=== PATIENT | female | born 1950 | race Caucasian/White ===

== ENCOUNTER 2020-05-03 07:21 | Outpatient (REF) | payer MEDICARE, SELFPAY ==
[2020-05-03 09:21] LABS: Cholesterol 149 mg/dL; HDL Cholesterol 45 mg/dL; LDL Cholesterol Calculated 60 mg/dl; Triglycerides 222 mg/dL
== END 2020-05-03 07:22 | disposition home or self-care (01) ==
LOC: HO.LAB 07:21
PROVIDERS: Visit Provider Internal Medicine
DX: E78.5 Hyperlipidemia, unspecified (principal)
CPT/HCPCS: 80061

== ENCOUNTER 2020-05-25 08:04 | Outpatient (REF) | payer MEDICARE, SELFPAY | END 2020-05-25 08:05 | disposition home or self-care (01) | LOC: HO.LAB 08:04 | PROVIDERS: Visit Provider Internal Medicine | DX: Z20.828 Contact with and (suspected) exposure to other viral communicable diseases (principal) | CPT/HCPCS: C9803; U0003 ==

== ENCOUNTER 2021-03-07 06:55 | Outpatient (REF) | payer MEDICARE, SELFPAY ==
[2021-03-07 08:22] LABS: Alanine Aminotransferase 15 U/L (0-31); Albumin Level 3.8 g/dL (3.5-5.0); Alkaline Phosphatase 83 U/L (39-117); Anion Gap 12 (12-20); Aspartate Amino Transferase 15 U/L (5-31); Bilirubin Total 0.8 mg/dL (0.0-1.0); Blood Urea Nitrogen 15 mg/dL (9-16); Calcium 9.3 mg/dL (8.4-10.2); Carbon Dioxide 25 mmol/L (22-29); Chloride 104 mmol/L (96-108); Cholesterol 153 mg/dL; Estimated Glomerular Filt Rate 45; Glucose Fasting 225 mg/dL (60-99); HDL Cholesterol 40 mg/dL; LDL Cholesterol Calculated 75 mg/dl; Potassium 4.6 mmol/L (3.3-5.1); Sodium 136 mmol/L (135-145); Total Protein 6.5 g/dL (6.5-8.0); Triglycerides 192 mg/dL
== END 2021-03-07 06:56 | disposition home or self-care (01) ==
LOC: HO.LAB 06:55
PROVIDERS: PCP Internal Medicine; Visit Provider Nurse Practitioner Family
DX: E11.9 Type 2 diabetes mellitus without complications (principal)
CPT/HCPCS: 36415; 80053; 80061

== ENCOUNTER 2021-06-17 06:10 | Outpatient (REF) | payer MEDICARE, SELFPAY ==
[2021-06-17 06:58] LABS: Cholesterol 117 mg/dL; HDL Cholesterol 43 mg/dL; LDL Cholesterol Calculated 47 mg/dl; Triglycerides 138 mg/dL
[2021-06-17 07:32] LABS: Estimated Average Glucose 171 mg/dL; Hemoglobin A1c % 7.6 %
== END 2021-06-17 06:11 | disposition home or self-care (01) ==
LOC: HO.LAB 06:10
PROVIDERS: Visit Provider Internal Medicine
DX: E11.9 Type 2 diabetes mellitus without complications (principal)
CPT/HCPCS: 36415; 80061; 83036

== ENCOUNTER 2022-01-26 13:04 | Outpatient (REF) | payer MEDICARE, SELFPAY ==
--- NOTE | ~2022-01-26 | MM_ITS ---
EXAMINATION: MM SCREENING DIGITAL BREAST TOMOSYNTHESIS, BILATERAL CLINICAL INFORMATION: Screening. Asymptomatic. The lifetime risk of breast cancer based on the Tyrer-Cuzick Model is 3.0%. COMPARISON: Mammography: February 13, 2017 and studies dating back to June 28, 2006 TECHNIQUE: Digital breast tomosynthesis is performed in both the craniocaudal and mediolateral oblique views along with computer-aided detection (CAD). Synthesized 2D images are generated from the tomosynthesis. FINDINGS: There are scattered areas of fibroglandular density (ACR BI-RADS breast composition Category b). There are no significant masses, abnormal calcifications, or other abnormalities. MM/MM tomosynthesis screening BI IMPRESSION: There are no significant changes from prior study. ASSESSMENT: BI-RADS 1: Negative RECOMMENDATION: Routine annual mammography screening. This patient's information was entered into a reminder system with a target due date for their next mammogram.
== END 2022-01-26 13:05 | disposition home or self-care (01) ==
LOC: HO.MAMMO 13:04
PROVIDERS: Visit Provider Internal Medicine
DX: Z12.31 Encounter for screening mammogram for malignant neoplasm of breast (principal)
CPT/HCPCS: 77063; 77067

== ENCOUNTER 2022-06-02 08:10 | Outpatient (REF) | payer MEDICARE, SELFPAY ==
[2022-06-02 08:29] LABS: MANUAL DIFF FLAG NO
[2022-06-02 08:39] LABS: Basophils Absolute Auto 0.1 X10*3/uL (0.0-0.2); Basophils Percent Auto 0.9 % (0-2); Eosinophils Absolute Auto 0.1 X10*3/uL (0.0-0.4); Eosinophils Percent Auto 1.4 % (0-4); Hematocrit 41.4 % (37.0-47.0); Hemoglobin 14.5 g/dl (12.0-16.0); Imm Gran Abs Auto 0.02 X10*3/uL (0.00-0.03); Imm Gran Pct Auto 0.3 % (0.0-0.4); Lymphocytes Percent Auto 30.8 % (20-40); Mean Corpuscular Hemoglobin 31.8 pg (27.0-33.0); Mean Corpuscular Volume 90.8 fL (80.0-98.0); Mean Platelet Volume 10.8 fL (9.4-12.3); Monocytes Absolute Auto 0.5 X10*3/uL (0.1-1.2); Monocytes Percent Auto 7.2 % (2-11); Neutrophils Absolute Auto 3.9 x10*3/uL (2.0-8.3); Neutrophils Percent Auto 59.4 % (45-73); Platelet Count 303 X10*3/uL (160-400); Red Blood Count 4.56 X10*6/uL (4.20-5.50); Red Cell Distribution Width 12.3 % (11.0-16.0); White Blood Count 6.6 X10*3/uL (4.8-10.8)
[2022-06-02 08:51] LABS: Estimated Average Glucose 212 mg/dL
[2022-06-02 09:42] LABS: Alanine Aminotransferase 15 U/L (0-31); Albumin Level 3.8 g/dL (3.5-5.0); Alkaline Phosphatase 82 U/L (39-117); Anion Gap 12 (12-20); Aspartate Amino Transferase 13 U/L (5-31); Bilirubin Total 0.7 mg/dL (0.0-1.0); Blood Urea Nitrogen 27 mg/dL (9-16); Calcium 9.1 mg/dL (8.4-10.2); Carbon Dioxide 25 mmol/L (22-29); Chloride 106 mmol/L (96-108); Cholesterol 134 mg/dL; Estimated Glomerular Filt Rate 46; Glucose Fasting 198 mg/dL (60-99); HDL Cholesterol 41 mg/dL; LDL Cholesterol Calculated 65 mg/dl; Potassium 4.2 mmol/L (3.3-5.1); Sodium 139 mmol/L (135-145); Thyroid Stimulating Hormone 2.71 uIU/mL (0.32-4.0); Total Protein 6.3 g/dL (6.5-8.0); Triglycerides 143 mg/dL
== END 2022-06-02 08:11 | disposition home or self-care (01) ==
LOC: HO.LAB 08:10
PROVIDERS: PCP Internal Medicine; Visit Provider Internal Medicine
DX: Z13.0 Encounter for screening for diseases of the blood and blood-forming organs and certain disorders involving the immune mechanism (principal); E11.9 Type 2 diabetes mellitus without complications; I10 Essential (primary) hypertension; E78.5 Hyperlipidemia, unspecified; E03.9 Hypothyroidism, unspecified
CPT/HCPCS: 36415; 80053; 80061; 83036; 84443; 85025

== ENCOUNTER 2022-10-08 13:25 | Emergency (ER) | payer MEDICARE, SELFPAY ==
--- NOTE | ~2022-10-08 | CT_ITS ---
EXAM: CT HEAD WITHOUT CONTRAST CT CERVICAL SPINE INDICATION: Reason for Exam fall, hit head TECHNIQUE: A noncontrast CT scan was performed from the skull base to the vertex. A noncontrast CT scan of the cervical spine was performed from the base of the skull through T1 at 2.5 mm and 0.625 mm collimation. Coronal and sagittal reformats were obtained at the acquisition workstation. This CT examination was performed using dose optimization techniques as appropriate, variously including the following: * Automated exposure control * Adjustment of mA and/or kV according to patient size (this includes techniques or standardized protocols for targeted exams where dose is matched to indication/reason for exam; i.e. extremities or head) * Use of iterative reconstruction technique Dose length product is 983 mGy-cm. COMPARISON: CT head and spine 05/31/2019 FINDINGS: Head: There is no evidence of acute intracranial hemorrhage or territorial infarction. No abnormal mass effect or midline shift is seen. Parks to white matter differentiation is well preserved. No extra-axial fluid collections are identified. The ventricles are normal in size. No abnormal attenuation in the brain parenchyma. No acute calvarial fracture.. Paranasal sinuses and mastoid air cells are well-aerated. Cervical Spine: The atlantooccipital and atlantoaxial articulations demonstrate normal articulation. Slight reversal of the normal cervical lordosis. Otherwise, there is anatomic alignment of the vertebral bodies and posterior elements. No evidence of acute fracture or subluxation. Vertebral body heights are maintained. Cervical spondylosis. More prominent changes include moderate-severe C3-C4, C7-T1 disc degeneration. Moderate disc degeneration at C4-C5, . Multilevel facet degeneration. Bilateral C3-C4 and C4-C5 neural foramen narrowing. No prevertebral soft tissue swelling. The paraspinal soft tissues are unremarkable. There is no cervical lymphadenopathy. The thyroid gland is unremarkable. The visualized lung apices are clear. CT/CT cervical spine wo IV con IMPRESSION: 1. No CT evidence of acute intracranial hemorrhage or edematous territorial infarction. 2. No CT evidence of acute fracture malalignment. 3. Moderate-severe cervical spondylosis.
--- NOTE | ~2022-10-08 | XR_ITS ---
EXAMINATION: Chest, left ankle and left tibia fibula. CLINICAL INDICATION: Trauma. COMPARISON: Chest 05/31/2019 and left ankle 11/19/2014 TECHNIQUE: Chest one view. Left ankle 2 views and left tibia and fibula 3 views. FINDINGS: Left tibia and fibula: There is no visible proximal tibial or ulnar acute fracture, dislocation or bony abnormality. The soft tissues are normal. Left ankle: There is medial and lateral malleolar fractures with ankle dislocation and moderate soft tissue swelling. In addition there is fracture involving distal lateral tibia with extension to the ankle mortise. A small calcaneal heel enthesophyte is seen CHEST: Lungs are well-expanded and clear. Heart size and progress clarities normal. No gross bony abnormality. XR/XR tibia fibula LT 2V IMPRESSION: 1. Unremarkable left tibia and fibula. 2. Medial and lateral malleolar fractures with ankle dislocation and moderate soft tissue swelling. There is a fracture involving distal lateral tibia with extension to the ankle mortise. 3. Unremarkable chest exam. .
--- NOTE | ~2022-10-08 | XR_ITS ---
EXAMINATION: Chest, left ankle and left tibia fibula. CLINICAL INDICATION: Trauma. COMPARISON: Chest 05/31/2019 and left ankle 11/19/2014 TECHNIQUE: Chest one view. Left ankle 2 views and left tibia and fibula 3 views. FINDINGS: Left tibia and fibula: There is no visible proximal tibial or ulnar acute fracture, dislocation or bony abnormality. The soft tissues are normal. Left ankle: There is medial and lateral malleolar fractures with ankle dislocation and moderate soft tissue swelling. In addition there is fracture involving distal lateral tibia with extension to the ankle mortise. A small calcaneal heel enthesophyte is seen CHEST: Lungs are well-expanded and clear. Heart size and progress clarities normal. No gross bony abnormality. XR/XR ankle LT 2V IMPRESSION: 1. Unremarkable left tibia and fibula. 2. Medial and lateral malleolar fractures with ankle dislocation and moderate soft tissue swelling. There is a fracture involving distal lateral tibia with extension to the ankle mortise. 3. Unremarkable chest exam. .
--- NOTE | ~2022-10-08 | XR_ITS ---
EXAMINATION: Chest, left ankle and left tibia fibula. CLINICAL INDICATION: Trauma. COMPARISON: Chest 05/31/2019 and left ankle 11/19/2014 TECHNIQUE: Chest one view. Left ankle 2 views and left tibia and fibula 3 views. FINDINGS: Left tibia and fibula: There is no visible proximal tibial or ulnar acute fracture, dislocation or bony abnormality. The soft tissues are normal. Left ankle: There is medial and lateral malleolar fractures with ankle dislocation and moderate soft tissue swelling. In addition there is fracture involving distal lateral tibia with extension to the ankle mortise. A small calcaneal heel enthesophyte is seen CHEST: Lungs are well-expanded and clear. Heart size and progress clarities normal. No gross bony abnormality. XR/XR chest 1V IMPRESSION: 1. Unremarkable left tibia and fibula. 2. Medial and lateral malleolar fractures with ankle dislocation and moderate soft tissue swelling. There is a fracture involving distal lateral tibia with extension to the ankle mortise. 3. Unremarkable chest exam. .
--- NOTE | ~2022-10-08 | XR_ITS ---
EXAMINATION: XR ANKLE, LEFT CLINICAL INFORMATION: Postreduction ankle fracture COMPARISON: Left ankle performed earlier today 2 views. TECHNIQUE: AP, lateral, and mortise views of the left ankle. FINDINGS: There is a medial and lateral malleolar fracture with ankle dislocation. There is no fracture involving the lateral distal tibia on these views. There is a hard cast supporting left ankle but unchanged to the precast left ankle x-rays. XR/XR ankle LT 2V IMPRESSION: Medial and lateral malleolar fractures with ankle dislocation been stabilized by a hard cast. There is no change in the dislocation and displacement from the precast left ankle x-ray.
[2022-10-08 13:31] VITALS: BP 93/58; PULSE 68; O2SAT 98
--- NOTE | 2022-10-08 13:36 | ECG_ITS ---
Test Reason : fall Blood Pressure : / mmHG Vent. Rate : 058 BPM Atrial Rate : 058 BPM P-R Int : 172 ms QRS Dur : 074 ms QT Int : 436 ms P-R-T Axes : 025 008 -04 degrees QTc Int : 428 ms Sinus bradycardia Nonspecific ST and T wave abnormality Borderline ECG No previous ECGs available Referred By: Amena Santana Electronically Signed By:RORO WANG
--- NOTE | 2022-10-08 13:42 | ED_ITS ---
HPI - Fall General Chief Complaint: Fall Stated Complaint: fall, ankle deformity Time Seen by Provider: 10/08/22 13:27 Source: EMS Mode of arrival: EMS Limitations: altered mental status History of Present Illness HPI Narrative: 72-year-old female with a history of dementia, hypertension, hyperlipidemia presents to the ER after an unwitnessed fall. Per EMS the patient was on the top of 3 stairs and fell down the stairs. Unclear why she fell. This was unwitnessed. Family heard the fall and found her at the mom the stairs. They noticed her left ankle swelling and deformity and called EMS. Patient unable to provider any history of present illness due to her underlying dementia Related Data Previous Rx's Medication Instructions Recorded simvastatin 20 mg tablet 20 mg PO DAILY #90 tabs 02/22/22 citalopram 40 mg tablet 40 mg PO DAILY #90 tabs 04/24/22 donepezil 10 mg tablet 10 mg PO BEDTIME #90 tabs 06/07/22 memantine 10 mg tablet 10 mg PO BID #90 tabs 06/07/22 trazodone 50 mg tablet 25 mg PO BEDTIME PRN sleep #30 tabs 06/07/22 losartan 50 mg tablet 50 mg PO DAILY #90 tabs 09/11/22 Allergies Allergy/AdvReac Type Severity Reaction Status Date / Time No Known Allergies Allergy Verified 10/06/22 08:33 [No Known Allergies*] Review of Systems Review of Systems: Yes Unobtainable due to mental status Neurologic: Denies Abnormal speech present and Reports confusion Psychiatric: Psychiatric: Reports confusion PMFSH Past Medical History Attestation statement: The following information was validated with the patient. Source: old records reviewed and nursing notes reviewed Medical History (Updated 10/08/22 @ 16:44 by Amena Santana NP) Eye exam, routine Hyperlipidemia Hyperlipidemia associated with type 2 diabetes mellitus Hypertension Post-menopausal Screening for breast cancer Screening for colon cancer Screening for diabetes mellitus Surgical History History of cholecystectomy History of colonoscopy History of partial hysterectomy History of tonsillectomy Family History Family History Father Alcohol abuse Mother Liver problem Family/Other Alcoholism Social History Social History Housing: House Alcohol intake: never Patient Tobacco Use Status: Never used Tobacco e-Cigarette/Vaping Use: Never Used Second Hand Smoke Exposure: No Advance Directives: Yes Advance Directives Information Provided: No Advance Directives on File: No service: No Current occupational status: retired Cognitive needs: Yes Hearing needs: No Vision needs: Yes Physical Exam Vital Signs: Vital Signs: Last Vital Signs Temp 97.6 F 10/08/22 15:58 Pulse 58 10/08/22 15:58 Resp 16 10/08/22 15:58 BP 120/83 10/08/22 15:58 Pulse Ox 98 10/08/22 15:58 O2 Del Method Room Air 10/08/22 15:58 BMI result Body Mass Index 33.0 Const: General: cooperative, healthy appearing, comfortable, no acute distress and confusion Orientation/consciousness: confusion Limitations: altered mental status HEENT: Head: Yes normal to inspection, No Marie's sign and No raccoon eyes Ears: hearing grossly normal bilaterally General nose exam: Normal external nose present Face and sinus: Yes normal facial exam Mouth: Normal oral and palatal mucosa present Throat: Yes posterior oropharynx normal Eyes: General: appearance normal, both eyes and all related structures Pupils: Equal, round and reactive pupils present Neck: Neck: Yes normal visual inspection Chest: Chest palpation & inspection: normal inspection of the chest Resp: Effort & Inspection: normal respiratory effort Auscultation: clear to auscultation bilaterally Cardio: Rate: regular rate Rhythm: regular rhythm Peripheral pulses: Peripheral pulses 2+ throughout GI: Inspection: Yes normal to inspection Palpation (GI): Soft to palpation and nontender Auscultation: normal bowel sounds Back/Spine/Pelvis: Thoracic/Lumbar Spine: thoracic and lumbar spine normal to inspection Skin: General skin exam: no rashes or lesions noted Neuro: General: no focal motor deficits, normal sensation to monofilament and confusion Cranial nerves: Yes Equal, round and reactive pupils present Cognition (Neuro): normal cognition Speech: No Abnormal speech present Gait exam (Neuro): Normal gait present Motor exam (neuro): 5/5 motor strength present throughout Extrem: Other: Patient has a deformity to the left ankle. She has tenderness and swelling on exam. She does have palpable DP and PT pulses. Sensation is normal General: Yes normal to inspection Course Course Course Narrative: Patient had hematoma block and an attempted ankle reduction at this bedside but without anatomic alignment (dr Ugarte was my attending physician during this procedure). Patient was splinted post-procedure. Reevaluation(s) Reevaluation #1: 1600-family would like patient transferred to another facility for orthopedic consultation. I did call [facility] but they are closed to transfers. Family would like me to try [facility]. Reevaluation #2: 1615-Called and spoke to [facility] transfer line. They are closed to transfers. Family would like me to try another facility. Will call [facility] transfer line. They are not comfortable taking the patient home however are not interested in short term rehab. Reevaluation #3: 1700-Spoke to [facility] transfer line. They have accepted the transfer to their ER with accepting physician Dr Rose. Family is very happy at this as they desired transfer to facility for orthopedic consultation. Will arrange transportation. Medications Administered Discontinued Medications Generic Name Dose Route Start Last Admin Trade Name Enma PRN Reason Stop Dose Admin Lidocaine HCl 30 ml 10/08/22 16:30 10/08/22 16:39 Lidocaine Hcl 1 % Mpf 30 Ml Vial SUBCUT 10/08/22 16:31 30 ml ONCE ONE Administration Protocol Morphine Sulfate 2 mg 10/08/22 13:37 10/08/22 15:12 Morphine Sulfate 2 Mg/Ml Cartridge IVPUSH 10/08/22 13:38 2 mg ONCE ONE Administration Protocol Ondansetron HCl 4 mg 10/08/22 13:37 10/08/22 15:11 Ondansetron Hcl 4 Mg/2 Ml Vial IVPUSH 10/08/22 13:38 4 mg ONCE ONE Administration Procedures Orthopedic Joint Reduction Joint #1: Side: left Joint Reduction Location: ankle Analgesia: hematoma block Local Anesthesia: lidocaine 1% Amount of anesthesic used (mL): 10 Technique used: direct manipulation Post-reduction neuro exam: intact Post-reduction vascular: intact Post Reduction X-Ray Obtained: Yes Post Reduction X-Ray Results: not reduced Splint Applied: Yes Patient Tolerated Procedure: well Orthopedic Splinting/Casting Injury #1: Side: left Lower Extremity Injury Location: ankle Lower Extremity Immobilizer: posterior splint and stirrup splint Medical Decision Making Medical Decision Making MDM Narrative: 72-year-old female here with left ankle pain and deformity after a fall down 3 steps from unclear clause. This was unwitnessed As patient is confused and unable to provide history of present illness we will check labs, EKG, CT head and cervical spine. Patient with obvious ankle deformity will check x-rays checked with that patient is on ASA 81mg daily Differential Diagnosis Differential Diagnoses: The differential diagnosis associated with the presentation includes Mechanical fall versus syncope Fracture, dislocation, contusion Admission/Observation Consideration of admission/observation: Escalation of care including admission/observation considered Trimallealar fracture with dislocation needing ortho consult, reduction Consult Healthcare Provider Management of the patient was discussed with: Global Sales Director X-ray of the left ankle shows a trimalleolar fracture with a dislocation. I discussed the case with our orthopedic bus transportation manager Sarah CASPER. unfortunately we only have a hand surgeon bus transportation manager for orthopedics this week. We will not have any additional orthopedic coverage until next week. The recommendation from Orthopedics is to reduce the joint and have the patient follow up this week in the office with them for planned outpatient surgery. -this was relayed to the family and they are quite upset that we do not have a orthopedic surgeon available here to perform surgery this week. They also feel that they cannot take this patient home as she will have to be non-weight bearing. We did discuss short term rehab as an option but family is not interested in this. They are requesting we transfer the patient to another facility for orthopedic consultation. Lab Data MDM Lab Attestation statement: I reviewed the patient's lab results. 10/08/22 13:54 10/08/22 13:54 Labs: Lab Results 10/08/22 10/08/22 10/08/22 Range/Units 13:54 13:54 13:54 WBC 6.8 (4.8-10.8) X10*3/uL RBC 4.50 (4.20-5.50) X10*6/uL Hgb 14.1 (12.0-16.0) g/dl Hct 40.7 (37.0-47.0) % MCV 90.4 (80.0-98.0) fL MCH 31.3 (27.0-33.0) pg MCHC 34.6 (31.0-35.0) g/dl RDW 12.1 (11.0-16.0) % Plt Count 266 (160-400) X10*3/uL MPV 10.7 (9.4-12.3) fL Immature Gran % (Auto) 0.1 (0.0-0.4) % Neut % (Auto) 65.5 (45-73) % Lymph % (Auto) 24.7 (20-40) % [place] % (Auto) 7.2 (2-11) % Eos % (Auto) 1.5 (0-4) % Baso % (Auto) 1.0 (0-2) % Lymph # (Auto) 1.7 (1.2-4.9) X10*3/uL [place] # (Auto) 0.5 (0.1-1.2) X10*3/uL Eos # (Auto) 0.1 (0.0-0.4) X10*3/uL Baso # (Auto) 0.1 (0.0-0.2) X10*3/uL Abs Immat Gran (auto) 0.01 (0.00-0.03) X10*3/uL Absolute Neuts (auto) 4.5 (2.0-8.3) x10*3/uL Absolute Nucleated RBC 0.000 (0.0-0.012) X10*3/uL Nucleated RBC % (auto) 0.0 (0.0-0.2) /100WBC Sodium 137 (135-145) mmol/L Potassium 4.8 (3.3-5.1) mmol/L Chloride 108 (96-108) mmol/L Carbon Dioxide 20 L (22-29) mmol/L Anion Gap 14 (12-20) BUN 27 H (9-16) mg/dL Creatinine 1.06 (0.5-1.4) mg/dL Estim Creat Clear Calc 55.8 Estimated GFR 51 Random Glucose 204 H (60-115) mg/dL Calcium 8.6 (8.4-10.2) mg/dL Total Bilirubin 1.1 H (0.0-1.0) mg/dL Direct Bilirubin 0.3 (0.0-0.5) mg/dL AST 17 (5-31) U/L ALT 15 (0-31) U/L Alkaline Phosphatase 78 (39-117) U/L Troponin I High Sens < 2.7 (<3.5-17.0) ng/L Total Protein 6.1 L (6.5-8.0) g/dL Albumin 3.5 (3.5-5.0) g/dL Independent Interpretation I performed an independent interpretation of an: EKG, Plain X-Ray and CT Scan Interpretation: I independently reviewed the x-ray of the left ankle, ct head/cervical spine Anomaly reviewed the EKG which shows sinus bradycardia with rate of 58, normal CO, normal QRS, normal QT Radiology Impression Discussion of test interpretation with radiology: I have reviewed the radiologist's reading. Radiologist Impression: [address] [address] [address] Scan Report Signed Patient: Melody Shirley MR#: [id number] : 1950 Acct:[id number] Age/Sex: 72 / F ADM Date: 10/08/22 Loc: .ED Attending Dr: Ordering Physician: Amena Sandy NP Date of Service: 10/08/22 Procedure(s): CT cervical spine wo IV con Accession Number(s): [id number] cc: Amena Sandy NP~ EXAM: CT HEAD WITHOUT CONTRAST CT CERVICAL SPINE INDICATION: Reason for Exam fall, hit head TECHNIQUE: A noncontrast CT scan was performed from the skull base to the vertex. A noncontrast CT scan of the cervical spine was performed from the base of the skull through T1 at 2.5 mm and 0.625 mm collimation. Coronal and sagittal reformats were obtained at the acquisition workstation. This CT examination was performed using dose optimization techniques as appropriate, variously including the following: *? Automated exposure control *? Adjustment of mA and/or kV according to patient size (this includes techniques or standardized protocols for targeted exams where dose is matched to indication/reason for exam; i.e. extremities or head) *? Use of iterative reconstruction technique Dose length product is 983 mGy-cm. COMPARISON: CT head and spine 05/31/2019 FINDINGS: Head: There is no evidence of acute intracranial hemorrhage or territorial infarction. No abnormal mass effect or midline shift is seen. Parks to white matter differentiation is well preserved. No extra-axial fluid collections are identified. The ventricles are normal in size. No abnormal attenuation in the brain parenchyma. No acute calvarial fracture.. Paranasal sinuses and mastoid air cells are well-aerated. ? ?Cervical Spine: The atlantooccipital and atlantoaxial articulations demonstrate normal articulation. Slight reversal of the normal cervical lordosis. Otherwise, there is anatomic alignment of the vertebral bodies and posterior elements. No evidence of acute fracture or subluxation. Vertebral body heights are maintained. Cervical spondylosis. More prominent changes include moderate-severe C3-C4, C7-T1 disc degeneration. Moderate disc degeneration at C4-C5, . Multilevel facet degeneration. Bilateral C3-C4 and C4-C5 neural foramen narrowing. No prevertebral soft tissue swelling. The paraspinal soft tissues are unremarkable. There is no cervical lymphadenopathy. The thyroid gland is unremarkable. The visualized lung apices are clear. CT/CT cervical spine wo IV con IMPRESSION: 1. No CT evidence of acute intracranial hemorrhage or edematous territorial infarction. ? 2. No CT evidence of acute fracture malalignment. ? 3. Moderate-severe cervical spondylosis. ? ?[place] [address] XRay Report Signed Patient: Melody Shirley MR#: [id number] : 1950 Acct:[id number] Age/Sex: 72 / F ADM Date: 10/08/22 Loc: .ED Attending Dr: Ordering Physician: Amena Sandy NP Date of Service: 10/08/22 Procedure(s): XR chest 1V Accession Number(s): [id number] cc: Amena Sandy NP~ EXAMINATION: Chest, left ankle and left tibia fibula. CLINICAL INDICATION: Trauma. COMPARISON: Chest 05/31/2019 and left ankle 11/19/2014 TECHNIQUE: Chest one view. Left ankle 2 views and left tibia and fibula 3 views. FINDINGS: Left tibia and fibula: There is no visible proximal tibial or ulnar acute fracture, dislocation or bony abnormality. The soft tissues are normal. Left ankle: There is medial and lateral malleolar fractures with ankle dislocation and moderate soft tissue swelling. In addition there is fracture involving distal lateral tibia with extension to the ankle mortise. A small calcaneal heel enthesophyte is seen CHEST: Lungs are well-expanded and clear. Heart size and progress clarities normal. No gross bony abnormality. XR/XR chest 1V IMPRESSION: 1.? Unremarkable left tibia and fibula. 2.? Medial and lateral malleolar fractures with ankle dislocation and moderate soft tissue swelling. There is a fracture involving distal lateral tibia with extension to the ankle mortise. 3.? Unremarkable chest exam. . ? Independent Historian Clinical information obtained from an independent historian. History obtained from or confirmed by: EMS Critical Care Time Critical Care Time Critical Care Time: Yes Total Critical Care Time: 60 Attestation: Trimalleolar ankle fracture with ankle dislocation requiring attempts at ankle r eduction, discussion with transfer lines at [facility]. Transfer to tertiary care center for orthopedic consultation Discharge Plan Discharge Clinical Impression: Closed trimalleolar fracture, Ankle dislocation Patient Disposition: Xfer Acute Care Hospital Transfer Details: [facility] Prescriptions: No Action simvastatin 20 mg tablet 20 mg PO DAILY Qty: 90 8RF citalopram 40 mg tablet 40 mg PO DAILY Qty: 90 8RF memantine 10 mg tablet 10 mg PO BID Qty: 90 3RF donepezil 10 mg tablet 10 mg PO BEDTIME Qty: 90 8RF losartan 50 mg tablet 50 mg PO DAILY Qty: 90 8RF trazodone 50 mg tablet 25 mg PO BEDTIME PRN (Reason: sleep) Qty: 30 4RF
[2022-10-08 13:58] LABS: MANUAL DIFF FLAG NO
[2022-10-08 14:00] LABS: Basophils Absolute Auto 0.1 X10*3/uL (0.0-0.2); Eosinophils Absolute Auto 0.1 X10*3/uL (0.0-0.4); Eosinophils Percent Auto 1.5 % (0-4); Hematocrit 40.7 % (37.0-47.0); Hemoglobin 14.1 g/dl (12.0-16.0); Imm Gran Abs Auto 0.01 X10*3/uL (0.00-0.03); Imm Gran Pct Auto 0.1 % (0.0-0.4); Lymphocytes Absolute Auto 1.7 X10*3/uL (1.2-4.9); Lymphocytes Percent Auto 24.7 % (20-40); Mean Corpuscular HGB Conc 34.6 g/dl (31.0-35.0); Mean Corpuscular Hemoglobin 31.3 pg (27.0-33.0); Mean Corpuscular Volume 90.4 fL (80.0-98.0); Mean Platelet Volume 10.7 fL (9.4-12.3); Monocytes Absolute Auto 0.5 X10*3/uL (0.1-1.2); Monocytes Percent Auto 7.2 % (2-11); Neutrophils Absolute Auto 4.5 x10*3/uL (2.0-8.3); Neutrophils Percent Auto 65.5 % (45-73); Platelet Count 266 X10*3/uL (160-400); Red Cell Distribution Width 12.1 % (11.0-16.0); White Blood Count 6.8 X10*3/uL (4.8-10.8)
[2022-10-08 14:01] VITALS: BMI 33.0
[2022-10-08 14:02] VITALS: BP 113/90; PULSE 61; RESP 16; TEMP 36.5; O2SAT 96
[2022-10-08 14:21] LABS: Alanine Aminotransferase 15 U/L (0-31); Albumin Level 3.5 g/dL (3.5-5.0); Alkaline Phosphatase 78 U/L (39-117); Anion Gap 14 (12-20); Aspartate Amino Transferase 17 U/L (5-31); Bilirubin Direct 0.3 mg/dL (0.0-0.5); Bilirubin Total 1.1 mg/dL (0.0-1.0); Blood Urea Nitrogen 27 mg/dL (9-16); Calcium 8.6 mg/dL (8.4-10.2); Carbon Dioxide 20 mmol/L (22-29); Chloride 108 mmol/L (96-108); Creatinine Clr Calc Pharmacy 55.8; Estimated Glomerular Filt Rate 51; Glucose Random 204 mg/dL (60-115); Potassium 4.8 mmol/L (3.3-5.1); Sodium 137 mmol/L (135-145); Total Protein 6.1 g/dL (6.5-8.0)
[2022-10-08 14:25] LABS: Troponin-I High Sensitivity < 2.7 ng/L (<3.5-17.0)
[2022-10-08] MEDS: ondansetron HCL 4 MG/2 ML VIAL IVPUSH (15:11)
[2022-10-08] MEDS: Morphine Sulfate 2 MG/ML CARTRIDGE IVPUSH (15:12)
[2022-10-08 15:58] VITALS: BP 120/83; PULSE 58; RESP 16; TEMP 36.4; O2SAT 98
[2022-10-08] MEDS: Lidocaine HCl 1 % MPF 30 ML VIAL SUBCUT (16:39)
[2022-10-08 17:07] LABS: COVID-19 Test Negative (Negative); IDNOW Serial# 08D9AD1C
[2022-10-08 17:43] VITALS: BP 129/81; PULSE 80; RESP 16; TEMP 36.6; O2SAT 98
--- NOTE | 2022-10-08 18:12 | PC.NURSE ---
pt linens changed reposition and helped to bed montero, waiting on transport to [facility]
--- NOTE | 2022-10-08 18:46 | PC.NURSE ---
has pulled out ivs currently no access.
[2022-10-08] MEDS: Morphine Sulfate 4 MG/ML CARTRIDGE IVPUSH (19:19)
--- NOTE | 2022-10-08 19:54 | PC.NURSE ---
Nurse report given to Oni MAURICIO at [facility]. Pt being transferred via EMS. Fammily at bedside and aware of plan of care.
== END 2022-10-08 19:56 | disposition short-term general hospital (02) ==
PROVIDERS: Nurse Practitioner Family; Emergency Provider Emergency Medicine; PCP Internal Medicine
DX: S82.852A Displaced trimalleolar fracture of left lower leg, initial encounter for closed fracture (principal); M54.2 Cervicalgia; R51.9 Headache, unspecified; R07.89 Other chest pain; M79.605 Pain in left leg; W10.9XXA Fall (on) (from) unspecified stairs and steps, initial encounter; Y93.9 Activity, unspecified; Y92.9 Unspecified place or not applicable; Y99.9 Unspecified external cause status; Z20.822 Contact with and (suspected) exposure to COVID-19; Z20.828 Contact with and (suspected) exposure to other viral communicable diseases; Z79.899 Other long term (current) drug therapy
CPT/HCPCS: 36415; 70450; 71045; 72125; 73590; 73600; 80048; 80076; 84484; 85025; 87635; 93005; 96374; 96375; 96376; 99285; J2270; J2405

== ENCOUNTER 2022-11-14 11:28 | Outpatient (REF) | payer MEDICARE, SELFPAY ==
[2022-11-14 11:43] LABS: MANUAL DIFF FLAG NO
[2022-11-14 12:21] LABS: Basophils Absolute Auto 0.1 X10*3/uL (0.0-0.2); Basophils Percent Auto 0.7 % (0-2); Eosinophils Absolute Auto 0.1 X10*3/uL (0.0-0.4); Eosinophils Percent Auto 1.4 % (0-4); Estimated Average Glucose 169 mg/dL; Hematocrit 40.1 % (37.0-47.0); Hemoglobin 13.6 g/dl (12.0-16.0); Hemoglobin A1c % 7.5 %; Imm Gran Abs Auto 0.03 X10*3/uL (0.00-0.03); Imm Gran Pct Auto 0.4 % (0.0-0.4); Lymphocytes Absolute Auto 1.8 X10*3/uL (1.2-4.9); Lymphocytes Percent Auto 25.2 % (20-40); Mean Corpuscular HGB Conc 33.9 g/dl (31.0-35.0); Mean Corpuscular Hemoglobin 31.4 pg (27.0-33.0); Mean Corpuscular Volume 92.6 fL (80.0-98.0); Mean Platelet Volume 11.1 fL (9.4-12.3); Monocytes Absolute Auto 0.6 X10*3/uL (0.1-1.2); Monocytes Percent Auto 8.1 % (2-11); Neutrophils Absolute Auto 4.5 x10*3/uL (2.0-8.3); Neutrophils Percent Auto 64.2 % (45-73); Platelet Count 341 X10*3/uL (160-400); Red Blood Count 4.33 X10*6/uL (4.20-5.50); Red Cell Distribution Width 12.6 % (11.0-16.0); White Blood Count 6.9 X10*3/uL (4.8-10.8)
[2022-11-14 13:01] LABS: Anion Gap 16 (12-20); Blood Urea Nitrogen 21 mg/dL (9-16); Calcium 9.8 mg/dL (8.4-10.2); Carbon Dioxide 22 mmol/L (22-29); Chloride 105 mmol/L (96-108); Cholesterol 127 mg/dL; Estimated Glomerular Filt Rate > 60; Glucose Fasting 104 mg/dL (60-99); Glucose Random 104 mg/dL (60-115); HDL Cholesterol 41 mg/dL; LDL Cholesterol Calculated 49 mg/dl; Potassium 4.6 mmol/L (3.3-5.1); Sodium 138 mmol/L (135-145); Triglycerides 189 mg/dL
== END 2022-11-14 11:29 | disposition home or self-care (01) ==
LOC: HO.LAB 11:28
PROVIDERS: PCP Internal Medicine; Visit Provider Internal Medicine
DX: R73.9 Hyperglycemia, unspecified (principal); D64.9 Anemia, unspecified; E78.5 Hyperlipidemia, unspecified
CPT/HCPCS: 36415; 80048; 80061; 82947; 83036; 85025

== ENCOUNTER 2023-01-31 06:40 | Outpatient (REF) | payer MEDICARE, SELFPAY ==
[2023-01-31 07:24] LABS: Estimated Average Glucose 114 mg/dL; Hemoglobin A1c % 5.6 %
[2023-01-31 07:36] LABS: Cholesterol 110 mg/dL; Glucose Fasting 101 mg/dL (60-99); HDL Cholesterol 38 mg/dL; LDL Cholesterol Calculated 50 mg/dl; Triglycerides 113 mg/dL
== END 2023-01-31 06:41 | disposition home or self-care (01) ==
LOC: HO.LAB 06:40
PROVIDERS: PCP Internal Medicine; Visit Provider Internal Medicine
DX: E78.5 Hyperlipidemia, unspecified (principal); E11.65 Type 2 diabetes mellitus with hyperglycemia
CPT/HCPCS: 36415; 80061; 82947; 83036

== ENCOUNTER 2023-02-05 08:35 | Outpatient (AMB) | payer MEDICARE, SELFPAY ==
--- NOTE | 2023-02-05 08:39 | A.OFFPC_ITS ---
Vital Signs 02/05/23 08:41 Height 5 ft 6 in Weight 183 lb 2 oz BMI 29.6 BP 120/70 Blood Pressure Location Lt brachial Position Sitting Pulse 65 Pulse Source Pulse Oximeter Pulse Oximetry (%) 94 Oxygen Delivery Method Room Air Intake Visit Reasons: 4mth f/u Intake Note: Patient is here to follow up on DM, Hyperglycemia, Hyperlipidemia, HTN. 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 System Technician Required: No Fire Fighter: Present Accompanied by: Spouse Allergies No Known Allergies [No Known Allergies*] Allergy (Verified 02/05/23 08:41) Medication List - Last Reconciled 02/05/23 by Franky Martino MD acetaminophen 975 mg PO Q8H blood sugar diagnostic ([employer] Verio test strips) As directed cholecalciferol (vitamin D3) 50 mcg PO DAILY citalopram 40 mg PO DAILY donepezil 5 mg PO DAILY losartan 50 mg PO DAILY memantine 10 mg PO BID metformin 1,000 mg (2 x 500 mg) PO BID uttqgvim-xnqs-YN-calcium-mins 9 mg iron-400 mcg (Therapeutic-M) 1 tab PO DAILY sennosides-docusate sodium 8.6-50 mg (Senexon-S) 2 tabs PO BEDTIME simvastatin 20 mg PO DAILY sitagliptin phosphate (Januvia) 25 mg PO DAILY tramadol 50 mg PO Q6H PRN trazodone 25 mg (1/2 x 50 mg) PO BEDTIME PRN Tobacco use date assessed: 02/05/23 Fall risk assessment: 1 Fall in past year Last assessed Fall Risk: 02/05/23 Dental Screening Dental Screen Date: 02/05/23 Did you have a dental visit in the last 12 months?: No Did you have a dental problem in the last 6 months where you did not have access to dental care?: No Was dental information given to patient?: Patient has dentist HPI 4mth f/u HPI Details HTN DM and hyperlipidemia; stable [facility] Medical History (Updated 02/05/23 @ 09:04 by Franky Martino MD) Eye exam, routine Hyperlipidemia Hyperlipidemia associated with type 2 diabetes mellitus Hypertension Post-menopausal Screening for breast cancer Screening for colon cancer Screening for diabetes mellitus Surgical History (Updated 02/05/23 @ 08:47 by MICHELLE Renee) History of ankle surgery History of cholecystectomy History of colonoscopy History of partial hysterectomy History of tonsillectomy Family History Father Alcohol abuse Mother Liver problem Family/Other Alcoholism Social History Housing: House Alcohol intake: never Patient Tobacco Use Status: Never used Tobacco e-Cigarette/Vaping Use: Never Used Second Hand Smoke Exposure: No service: No Current occupational status: retired Cognitive needs: Yes Hearing needs: No Vision needs: Yes Questionnaire PHQ-9 Over the last 2 weeks, how often have you been bothered by any of the following problems? Depression Screening Interpretation: Positive Source: Developed by Drs. Tyree Weems, Dennise Newton, Remigio Lau and colleagues, with an educational sri from [employer]. Thrive Questionnaire Date Thrive assessed: 10/06/22 Currently or been in a relationship where the following occur: no concerns reported RAJWINDER-7 AMB Questionnaire RAJWINDER-7 Date RAJWINDER - 7 assessed: 10/06/22 Source: Developed by Drs. Tyree Weems, Dennise Newton, Remigio Lau and colleagues, with an educational sri from [employer]. Review of Systems Const Denies chills, Denies headache(s) and Denies weight loss ENT Denies headache(s) Card Denies chest pain, Denies syncope, Denies irregular heart rhythm and Denies dyspnea Resp Denies chest congestion, Denies cough and Denies dyspnea GI Denies abdominal pain, Denies change in stool character, Denies nausea and Denies vomiting Musc Denies deformity and Denies joint swelling Neuro Denies syncope and Denies headache(s) Physical exam (Primary Care) Vital Signs: Last Vital Signs Pulse 65 02/05/23 08:41 BP 120/70 02/05/23 08:41 Pulse Ox 94 02/05/23 08:41 Oxygen Delivery Method Room Air 02/05/23 08:41 BMI result Body Mass Index 29.6 Tobacco/Smoking Status: Tobacco use Status Tobacco use date assessed 02/05/23 02/05/23 08:48 Patient Tobacco Use Status Never used Tobacco 02/05/23 08:48 e-Cigarette/Vaping Use Never Used 02/05/23 08:48 Depression Screening Interpretation: Positive Thrive Assessment: Date of Thrive Assessment Date Thrive assessed 10/06/22 02/05/23 08:48 Currently or been in a relationship where the following occur: no concerns reported Const General: cooperative, healthy appearing and comfortable Resp Effort & Inspection: normal respiratory effort Auscultation: clear to auscultation bilaterally Percussion: percussion normal Cardio Jugular venous distension: no JVD Rate: regular rate Rhythm: regular rhythm GI Inspection: Yes normal to inspection Assessment and Plan Assessment & Plan (1) Hyperlipidemia associated with type 2 diabetes mellitus: Code(s): E11.69 - Type 2 diabetes mellitus with other specified complication; E78.5 - Hyperlipidemia, unspecified Plan: stable; same rx (2) Hypertension: Code(s): I10 - Essential (primary) hypertension Qualifiers: Hypertension type: unspecified Qualified Code(s): I10 - Essential (primary) hypertension Plan: stable; same rx (3) Diabetes mellitus with coincident hypertension: Code(s): E11.9 - Type 2 diabetes mellitus without complications; I10 - Essential (primary) hypertension Plan: stable; same rx Orders: Orders Glucose Fasting Today R73.9 - Hyperglycemia, unspecified Hemoglobin A1c Today R73.9 - Hyperglycemia, unspecified Lipid Panel Today E78.5 - Hyperlipidemia, unspecified Coding Level of Care Code Est Pt Level 4 (08321) Diagnoses Hyperlipidemia associated with type 2 diabetes mellitus E11.69; E78.5 Hypertension I10 Hypertension type: unspecified Diabetes mellitus with coincident hypertension E11.9; I10
[2023-02-05 08:41] VITALS: BP 120/70; PULSE 65; O2SAT 94; BMI 29.6
== END 2023-02-05 09:01 | disposition home or self-care (01) ==
PROVIDERS: PCP Internal Medicine; Visit Provider Internal Medicine
DX: E11.69 Type 2 diabetes mellitus with other specified complication (principal); E78.5 Hyperlipidemia, unspecified; I10 Essential (primary) hypertension; E11.9 Type 2 diabetes mellitus without complications
CPT/HCPCS: 99214

== ENCOUNTER 2023-02-09 15:19 | Outpatient (REF) | payer MEDICARE, SELFPAY ==
--- NOTE | ~2023-02-09 | MM_ITS ---
EXAMINATION: MM SCREENING DIGITAL BREAST TOMOSYNTHESIS, BILATERAL CLINICAL INFORMATION: Screening. Asymptomatic. COMPARISON: Mammography: This study is compared with prior exams dating back to 2017. TECHNIQUE: Digital breast tomosynthesis is performed in both the craniocaudal and mediolateral oblique views along with computer-aided detection (CAD). Synthesized 2D images are generated from the tomosynthesis. FINDINGS: There are scattered areas of fibroglandular density (ACR BI-RADS breast composition Category b). There are no significant masses, abnormal calcifications, or other abnormalities. There is a tissue marker in the medial aspect of the right breast from prior benign percutaneous biopsy. There is some motion blurring of the MLO view of the left breast due to the patient's ability to cooperate with the exam secondary to Alzheimer's disease. MM/MM tomosynthesis screening BI IMPRESSION: No mammographic evidence of malignancy. ASSESSMENT: BI-RADS BI-RADS 2 - Benign Findings RECOMMENDATION: Routine annual mammography screening. 1 year F/U This examination should not preclude the clinical evaluation of a suspicious palpable abnormality. This patient's information was entered into a reminder system with a target due date for their next mammogram.
== END 2023-02-09 15:20 | disposition home or self-care (01) ==
LOC: HO.MAMMO 15:19
PROVIDERS: PCP Internal Medicine; Visit Provider Internal Medicine
DX: Z12.31 Encounter for screening mammogram for malignant neoplasm of breast (principal)
CPT/HCPCS: 77063; 77067

== ENCOUNTER → 2023-02-09 15:45 | Outpatient (BNV) | payer MEDICARE, SELFPAY | PROVIDERS: PCP Internal Medicine; Visit Provider Radiology Diagnostic Radiology | DX: Z12.31 Encounter for screening mammogram for malignant neoplasm of breast (principal) | CPT/HCPCS: 77063; 77067 ==

== ENCOUNTER 2023-06-04 06:52 | Outpatient (REF) | payer MEDICARE, SELFPAY ==
[2023-06-04 07:56] LABS: Estimated Average Glucose 117 mg/dL; Hemoglobin A1c % 5.7 % (<6.0)
[2023-06-04 08:11] LABS: Cholesterol 115 mg/dL (<200); Glucose Fasting 109 mg/dL (60-99); HDL Cholesterol 42 mg/dL (>40); LDL Cholesterol Calculated 52 mg/dL (<100); Triglycerides 109 mg/dL (<150)
== END 2023-06-04 06:53 | disposition home or self-care (01) ==
LOC: HO.LAB 06:52
PROVIDERS: PCP Internal Medicine; Visit Provider Internal Medicine
DX: E78.5 Hyperlipidemia, unspecified (principal); R73.9 Hyperglycemia, unspecified
CPT/HCPCS: 36415; 80061; 82947; 83036

== ENCOUNTER 2023-06-08 08:09 | Inpatient (IN) | payer MEDICARE, SELFPAY ==
[2023-06-08] VITALS (9 sets, daily range): BP systolic 94–132; BP diastolic 51–66; PULSE 75–111; RESP 16–26; TEMP 36.7–39.4; O2SAT 92–98; BMI 30.3; BMI 29.5
--- NOTE | ~2023-06-08 | XR_ITS ---
EXAMINATION: XR CHEST CLINICAL INFORMATION: Cough and fever. Evaluate for pneumonia. COMPARISON: 10/08/2022 TECHNIQUE: Frontal view of the chest was obtained. FINDINGS: Lungs are mildly hypoinflated. There appears to be minimal linear opacity of atelectasis in the left lateral base. No evidence of airspace disease or pleural effusion. Cardiomediastinal silhouette has normal size and contour. No acute osseous abnormality. XR/XR chest 1V IMPRESSION: No evidence of pneumonia.
--- NOTE | 2023-06-08 08:39 | ECG_ITS ---
Test Reason : WEAKNESS Blood Pressure : / mmHG Vent. Rate : 098 BPM Atrial Rate : 098 BPM P-R Int : 158 ms QRS Dur : 070 ms QT Int : 368 ms P-R-T Axes : 040 026 019 degrees QTc Int : 469 ms Normal sinus rhythm Low voltage QRS Nonspecific T wave abnormality Abnormal ECG When compared with ECG of 08-OCT-2022 14:39, Vent. rate has increased BY 40 BPM Referred By: Kenny Conteh Electronically Signed By:Orlin Morgan
--- NOTE | 2023-06-08 08:44 | ED_ITS ---
HPI - Weakness General Chief complaint: Weakness Stated complaint: vomiting choke a little Time Seen by Provider: 06/08/23 08:15 Source: family (, Christiano and daughter, Maryanne) Mode of arrival: ambulatory Limitations: no limitations History of Present Illness HPI Narrative: 73-year-old female history diabetes mellitus, hypertension, hyperlipidemia, dementia who was brought to emergency department by her for evaluation of 2 days of cold-like symptoms and change in mental status this morning. states that yesterday the patient developed cold-like symptoms which included cough, rhinorrhea and a raspy voice. Patient had no fever or chills at home. The did give the patient 2 doses of liquid cough suppressant ( acetaminophen dextromethorphan and guaifenesin) yesterday and 1 dose this morning. According to the , this morning the patient was disoriented. Patient was not talking as much as usual and stops talking at some point this morning which concerned her . Her told me that she had pneumonia in the past and he was concerned that she had pneumonia again , therefore he brought her to the emergency department for evaluation. Patient had a good appetite yesterday and was eating and drinking well. The also states that the patient was extremely weak today. She was unable to get out of bed and walk down the stairs. She had to go down the stairs and a sitting position 1 started time. The patient then had a call his brother in order to help the patient get into the car could she was too weak to walk. The patient's daughter states that when the patient gets ill, her dementia gets worse in off and she cannot eat or drink secondary to her illness. Related Data Home Medications Medication Instructions Recorded Confirmed acetaminophen 325 mg tablet 975 mg PO Q8H PRN Pain (Scale 11/14/22 06/08/23 Score 1-3) cholecalciferol (vitamin D3) 25 50 mcg PO DAILY 11/14/22 06/08/23 mcg (1,000 unit) tablet multivitamin-iron 9 mg-folic acid 1 tab PO DAILY 11/14/22 06/08/23 400 mcg-calcium and minerals tablet (Therapeutic-M) sennosides 8.6 mg-docusate sodium 2 tab PO BEDTIME 11/14/22 06/08/23 50 mg tablet (Senexon-S) donepezil 5 mg tablet 5 mg PO BEDTIME 06/08/23 06/08/23 simvastatin 20 mg tablet 20 mg PO BEDTIME 06/08/23 06/08/23 Previous Rx's Medication Instructions Recorded losartan 50 mg tablet 50 mg PO DAILY #90 tabs 09/11/22 blood sugar diagnostic (OneTouch #100 ea 10/30/22 Verio test strips) citalopram 40 mg tablet 40 mg PO DAILY #90 tabs 11/15/22 metformin 500 mg tablet 1,000 mg (2 x 500 mg) PO BID #120 12/12/22 tabs trazodone 50 mg tablet 25 mg (1/2 x 50 mg) PO BEDTIME PRN 03/02/23 sleep #30 tabs sitagliptin phosphate 25 mg tablet 25 mg PO DAILY #30 tabs 04/18/23 (Januvia) memantine 10 mg tablet 10 mg PO BID #90 tabs 05/28/23 Allergies Allergy/AdvReac Type Severity Reaction Status Date / Time No Known Allergies Allergy Verified 02/05/23 08:41 [No Known Allergies*] Review of Systems 2 Review of Systems: Yes all other systems are reviewed and are negative [facility] Past Medical History [facility] Narrative: Social history: Patient lives at home with her Christiano who is here in the emergency department with her. Patient does not smoke cigarettes or drink alcohol. Medical History Hyperlipidemia associated with type 2 diabetes mellitus Post-menopausal Eye exam, routine Screening for breast cancer Screening for colon cancer Screening for diabetes mellitus Hyperlipidemia Hypertension Surgical History History of ankle surgery History of colonoscopy History of partial hysterectomy History of cholecystectomy History of tonsillectomy Family History Family History Father Alcohol abuse Mother Liver problem Family/Other Alcoholism Social History Social History Housing: House Alcohol intake: never Patient Tobacco Use Status: Never used Tobacco e-Cigarette/Vaping Use: Never Used Second Hand Smoke Exposure: No service: No Current occupational status: retired Cognitive needs: Yes Hearing needs: No Vision needs: Yes Physical Exam 2 Vital Signs: Vital Signs: Last Vital Signs Temp 99.5 F 06/08/23 10:39 Pulse 82 06/08/23 12:09 Resp 16 06/08/23 12:09 BP 99/52 L 06/08/23 13:17 Pulse Ox 95 06/08/23 12:09 O2 Del Method Room Air 06/08/23 12:09 BMI result Body Mass Index 30.3 Vital signs reviewed, patient is febrile, tachycardic tachypneic with a normal blood pressure and normal O2 saturation on room air, she does meet SIRS criteria Exam: General: Awake, keeps her eyes closed, she was not able to tell me her name, she follows some commands but not all Head: Normocephalic, atraumatic EENT: PERRL, Lids normal, sclera normal, conjunctiva normal, nose normal , ears normal, throat without erythema or exudates Neck: Supple, no adenopathy, no trachea midline or C-spine tenderness Lung: breath sounds symmetric, no wheezing, rales or rhonchi Chest: symmetric movement, nontender Heart: regular rate and rhythm, normal S1, S2 no murmurs or rubs Abdomen: soft, non-tender, nondistended, normal bowel sounds Back: no vertebral tenderness, no CVAT Extremities: no deformities, moves all extremities symmetrically Neuro: Somnolent, eyes closed, follows some commands but not all, unable to tell me her name, cranial nerves intact, moves all extremities but appears weak Medications Administered Discontinued Medications Generic Name Dose Route Start Last Admin Trade Name Erasmoq PRN Reason Stop Dose Admin Acetaminophen 975 mg 06/08/23 08:38 06/08/23 09:08 Acetaminophen 325 Mg Tablet PO 06/08/23 08:39 975 mg ONCE STA Administration Sodium Chloride 2,558.25 mls @ 2,558.25 mls/hr 06/08/23 08:38 06/08/23 12:09 Ns 30 ml/kg infuse over 1 hr (2558.25 ml) 06/08/23 09:37 Infused IV Infusion .Q1H STA Medical Decision Making Medical Decision Making MDM Narrative: 73-year-old female history diabetes mellitus, hypertension, hyperlipidemia, dementia who was brought to emergency department by her for evaluation of 2 days of cold-like symptoms (cough, rhinorrhea, raspy voice) and change in mental status (not talking, not participate), weakness (not able to walk or go down stairs) this morning. Patient was noted to be febrile with a temperature of a 102.9 degrees F, tachypneic respiratory rate of 20 to 26 and tachycardic with a pulse of 101 - 111. Patient was not oriented to person, was not consistently following commands and appeared weak. Following evaluation was ordered: CBC, CMP, PT/INR, PTT, troponin, lactic acid, blood cultures x2, urinalysis, chest x-ray one view, EKG Patient was treated with Tylenol 975 mg orally and normal saline 30 cc/kilogram bolus 10:55 My interpretation patient's laboratory evaluation as follows: CBC was normal. Glucose elevated 217. BUN elevated 29. High sensitive troponin I below detectable limits. LFTs were normal. COVID-19 was positive explains the patient's symptoms Chest x-ray was unremarkable. The patient is not hypoxic however she is altered secondary to her infection and her dementia-daughter states that this happens when the patient gets sick. Patient was extremely weak and was unable to walk, go down stay and is not interacting appropriately with her family. Given these findings I do not think that the patient can be cared for at home and needs to be hospitalized for further management. I will discuss admission with the covering hospitalist. 15:41 Patient was accepted by the covering hospitalist, Dr. Trejo Differential Diagnosis Differential Diagnoses: The differential diagnosis associated with the presentation includes 08:52 Differential diagnosis includes was not limited to pneumonia, dehydration, volume depletion, COVID-19, influenza, RSV, viral syndrome, electrolyte abnormality, anemia, urinary tract infection Admission/Observation Consideration of admission/observation: Escalation of care including admission/observation considered Lab Data [facility] Lab Attestation statement: I reviewed the patient's lab results. 06/08/23 08:49 06/08/23 08:49 Labs: Lab Results 06/08/23 06/08/23 Range/Units 08:49 14:32 WBC 8.1 (4.8-10.8) X10*3/uL RBC 3.81 L (4.20-5.50) X10*6/uL Hgb 12.2 (12.0-16.0) g/dl Hct 35.4 L (37.0-47.0) % MCV 92.9 (80.0-98.0) fL MCH 32.0 (27.0-33.0) pg MCHC 34.5 (31.0-35.0) g/dl RDW 12.6 (11.0-16.0) % Plt Count 237 D (160-400) X10*3/uL MPV 11.1 (9.4-12.3) fL Immature Gran % (Auto) 0.4 (0.0-0.4) % Neut % (Auto) 89.7 H (45-73) % Lymph % (Auto) 3.0 L (20-40) % [place] % (Auto) 6.3 (2-11) % Eos % (Auto) 0.0 (0-4) % Baso % (Auto) 0.6 (0-2) % Lymph # (Auto) 0.2 L (1.2-4.9) X10*3/uL [place] # (Auto) 0.5 (0.1-1.2) X10*3/uL Eos # (Auto) 0.0 (0.0-0.4) X10*3/uL Baso # (Auto) 0.1 (0.0-0.2) X10*3/uL Abs Immat Gran (auto) 0.03 (0.00-0.03) X10*3/uL Absolute Neuts (auto) 7.3 (2.0-8.3) x10*3/uL Absolute Nucleated RBC 0.000 (0.0-0.012) X10*3/uL Nucleated RBC % (auto) 0.0 (0.0-0.2) /100WBC PT 12.9 (11.1-13.3) SEC INR 1.1 (0.9-1.1) APTT 30.1 (26.0-36.4) SEC Sodium 139 (135-145) mmol/L Potassium 4.1 (3.3-5.1) mmol/L Chloride 107 (96-108) mmol/L Carbon Dioxide 22 (22-29) mmol/L Anion Gap 14 (12-20) BUN 29 H (9-16) mg/dL Creatinine 1.20 (0.5-1.4) mg/dL Estim Creat Clear Calc 46.6 Estimated GFR 44 Random Glucose 217 H (60-115) mg/dL Lactic Acid 1.3 (0.5-2.0) mmol/L Calcium 9.3 (8.4-10.2) mg/dL Total Bilirubin 0.7 (0.0-1.0) mg/dL AST 28 (5-31) U/L ALT 20 (0-31) U/L Alkaline Phosphatase 56 (39-117) U/L Troponin I High Sens < 2.7 (<3.5-17.0) ng/L Total Protein 6.5 (6.5-8.0) g/dL Albumin 3.7 (3.5-5.0) g/dL Lipase 17 (8-78) U/L Urine Color Yellow Urine Appearance Clear Urine pH 5.5 (5.0-9.0) Ur Specific [place] 1.025 (1.005-1.025) Urine Protein Negative (Neg-Trace) mg/dL Urine Glucose (UA) Negative (Negative) mg/dL Urine Ketones Negative (Negative) mg/dL Urine Blood Trace H (Negative) Urine Nitrite Positive H (Negative) Ur Leukocyte Esterase Small (1+) H (Negative) Urine RBC 0-2 (0-2) /HPF Urine WBC 11-20 H (0-5) /HPF Ur Squamous Epith Cells 0-2 (0-2) /HPF Urine Bacteria 4+ (None Seen) Hyaline Casts 0-2 (0-2) /LPF Influenza Type A (PCR) NEGATIVE (Negative) Influenza Type B (PCR) NEGATIVE (Negative) RSV RNA Qual (PCR) NEGATIVE (Negative) SARS-CoV-2 RNA (RT-PCR) POSITIVE A (Negative) Independent Interpretation I performed an independent interpretation of an: Plain X-Ray Interpretation: My interpretation patient's one-view chest x-ray is as follows: No acute disease Radiology Impression Discussion of test interpretation with radiology: I have reviewed the radiologist's reading. Radiologist Impression: XR chest 1V IMPRESSION: No evidence of pneumonia. Dictated By: Guero Escobedo MD Discharge Plan Discharge Clinical Impression: COVID-19, Weakness Prescriptions: No Action losartan 50 mg tablet 50 mg PO DAILY Qty: 90 8RF (DME) OneTouch Verio test strips Strip See Rx Instructions .Route Qty: 100 0RF Rx Instructions: As directed citalopram 40 mg tablet 40 mg PO DAILY Qty: 90 3RF metformin 500 mg tablet 1,000 mg PO BID Qty: 120 3RF trazodone 50 mg tablet 25 mg PO BEDTIME PRN (Reason: sleep) Qty: 30 4RF Januvia 25 mg tablet 25 mg PO DAILY Qty: 30 3RF memantine 10 mg tablet 10 mg PO BID Qty: 90 3RF donepezil 5 mg tablet 5 mg PO BEDTIME simvastatin 20 mg tablet 20 mg PO BEDTIME Therapeutic-M 9 mg iron-400 mcg tablet 1 tab PO DAILY cholecalciferol (vitamin D3) 25 mcg (1,000 unit) tablet 50 mcg PO DAILY sennosides-docusate sodium [Senexon-S] 8.6-50 mg tablet 2 tab PO BEDTIME acetaminophen 325 mg tablet 975 mg PO Q8H PRN (Reason: Pain (Scale Score 1-3))
[2023-06-08 08:55] LABS: Basophils Absolute Auto 0.1 X10*3/uL (0.0-0.2); Basophils Percent Auto 0.6 % (0-2); Hematocrit 35.4 % (37.0-47.0); Hemoglobin 12.2 g/dl (12.0-16.0); Imm Gran Abs Auto 0.03 X10*3/uL (0.00-0.03); Imm Gran Pct Auto 0.4 % (0.0-0.4); Lymphocytes Absolute Auto 0.2 X10*3/uL (1.2-4.9); MANUAL DIFF FLAG NO; Mean Corpuscular HGB Conc 34.5 g/dl (31.0-35.0); Mean Corpuscular Volume 92.9 fL (80.0-98.0); Mean Platelet Volume 11.1 fL (9.4-12.3); Monocytes Absolute Auto 0.5 X10*3/uL (0.1-1.2); Monocytes Percent Auto 6.3 % (2-11); Neutrophils Absolute Auto 7.3 x10*3/uL (2.0-8.3); Neutrophils Percent Auto 89.7 % (45-73); Platelet Count 237 X10*3/uL (160-400); Red Blood Count 3.81 X10*6/uL (4.20-5.50); Red Cell Distribution Width 12.6 % (11.0-16.0); White Blood Count 8.1 X10*3/uL (4.8-10.8)
[2023-06-08 09:04] LABS: INTERNATIONAL NORM RATIO 1.1 (0.9-1.1); Prothrombin Time 12.9 SEC (11.1-13.3)
[2023-06-08 09:06] LABS: Partial Thromboplastin Time 30.1 SEC (26.0-36.4)
[2023-06-08 09:07] LABS: Lactic Acid 1.3 mmol/L (0.5-2.0)
[2023-06-08] MEDS: Acetaminophen 325 MG TABLET 975 MG PO (09:08)
[2023-06-08 09:14] LABS: Alanine Aminotransferase 20 U/L (0-31); Albumin Level 3.7 g/dL (3.5-5.0); Alkaline Phosphatase 56 U/L (39-117); Anion Gap 14 (12-20); Aspartate Amino Transferase 28 U/L (5-31); Bilirubin Total 0.7 mg/dL (0.0-1.0); Blood Urea Nitrogen 29 mg/dL (9-16); Calcium 9.3 mg/dL (8.4-10.2); Carbon Dioxide 22 mmol/L (22-29); Chloride 107 mmol/L (96-108); Creatinine Clr Calc Pharmacy 46.6; Estimated Glomerular Filt Rate 44; Glucose Random 217 mg/dL (60-115); Lipase 17 U/L (8-78); Potassium 4.1 mmol/L (3.3-5.1); Sodium 139 mmol/L (135-145); Total Protein 6.5 g/dL (6.5-8.0)
[2023-06-08 09:22] LABS: Troponin-I High Sensitivity < 2.7 ng/L (<3.5-17.0)
--- NOTE | 2023-06-08 09:22 | PC.NURSE ---
Addendum entered by Mago Mukherjee RN 06/08/23 18:40: IV's wrapped so that pt does not pull them out. Original Note: pt alert but not oriented. pleasantly confused and easily redirectible. hx of dementia. comes from home with after cold like symptoms yesterday including cough. pt is very warm to touch. changed over to hospital attire and rectal temp taken. 102.9. aware. 20G IV placed to bilateral ACs. labs drawn and sent. pt passed swallow eval with no difficulty. fluids running and pt medicated per aug. chest x-ray and EKG obtained. pt sating 89-95% on room air. MD aware. pt currently resting quietly on stretcher with and daughter at bedside. rr even/unlabored. call cornelius within reach. plan of care ongoing.
[2023-06-08 09:44] LABS: Influenza A PCR NEGATIVE (Negative); Influenza B PCR NEGATIVE (Negative); Resp Syncy Virus RNA Qual PCR NEGATIVE (Negative); SARS COV2 PCR INHOUSE POSITIVE (Negative)
--- NOTE | 2023-06-08 11:56 | PHA.MEDREC ---
Pharmacy Consult ? Medication Reconciliation Pharmacy has completed the medication reconciliation. Patients had a list
[2023-06-08 14:41] LABS: Appearance Urine Clear; Color Urine Yellow; Glucose Urine UA Negative (Negative); Leukocyte Esterase Urine Small (1+) (Negative); Nitrite Urine Positive (Negative); PH 5.5 (5.0-9.0); Specific Gravity - Urine 1.025 (1.005-1.025); UMIC TRIGGER UACC YES; Urine Blood Trace (Negative); Urine Ketones Negative (Negative); Urine Protein Negative (Neg-Trace)
[2023-06-08 14:43] LABS: Bacteria Urine 4+ (None Seen); Hyaline Casts Urine 0-2 /LPF (0-2); RBC Urine 0-2 /HPF (0-2); Squamous Epithelial Cell Urine 0-2 /HPF (0-2); UACC Culture Trigger YES
--- NOTE | 2023-06-08 14:44 | PC.NURSE ---
pt ambulated to bathroom to give urine sample. ua obtained and sent to lab. pt brief also saturated. taken off and provided with new one. pt back to bed. daughter and at bedside.
--- NOTE | 2023-06-08 15:01 | PM.IMHP ---
History of Present Illness Date of Service: 06/08/23 Attending physician on admission: Aurelia Portillo Chief Complaint: Generalized weakness, cough, AMS Pt is a 73-year-old female with a PMH significant for?HTN, yic-pkkeyoa-fruaogdje diabetes type 2, and unspecified dementia who presents to the ED with?altered mental status lethargy since yesterday. Patient is alert and oriented to self only and thus incapable of providing an accurate HPI which is instead obtained from family who is at bedside. Pt's states pt was mostly in her normal state of health except for having a mostly dry cough. Also notice her urine was rather foul-smelling. This morning when pt awoke she was altered -- not speaking much, more confused than baseline, and lethargic. Since pt normally has these symptoms when she has an infection, they brought her to the ED for further evaluation where she tested positive for both COVID and a UTI. In the ED pt had a fever up to 102.9, tachycardic up to 111, tachypneic up to 26, with soft BP as low as 95/56, satting at 95% on RA. Labs were significant for elevated blood glucose of 217, otherwise unremarkable. No leukocytosis. Stable H&H. Electrolytes WNL. Renal function baseline. UA positive for UTI, and patient tested positive for COVID. CXR showed no evidence of pneumonia. EKG demonstrated normal sinus rhythm without evidence of ST elevation or depressions. Pt was treated with IVF and acetaminophen. Pt will be admitted to the hospital for treatment further evaluation of acute metabolic encephalopathy and sepsis in setting of UTI. Review of Systems Review of Systems: Unable to obtain due to patient's mentation [facility] Medical History Hyperlipidemia associated with type 2 diabetes mellitus Post-menopausal Eye exam, routine Screening for breast cancer Screening for colon cancer Screening for diabetes mellitus Hyperlipidemia Hypertension Family History Father Alcohol abuse Mother Liver problem Family/Other Alcoholism Surgical History History of ankle surgery History of colonoscopy History of partial hysterectomy History of cholecystectomy History of tonsillectomy Social History Household Members: Spouse Housing: House Do you presently have visiting nurse or other home services: No Alcohol intake: never Comment: 1:1 sitter Patient Tobacco Use Status: Never used Tobacco Smoked in Last 30 Days: No e-Cigarette/Vaping Use: Never Used Second Hand Smoke Exposure: No Use of substances other than those prescribed or required for medical reasons: No Currently Displaying Signs/Symptoms of Drug Intoxication Withdrawal: No Have you been hit, kicked, punched, or otherwise hurt by someone within the past year? If so, by whom?: No Do you feel safe in your current relationship?: Yes Is there a partner from a previous relationship who is making you feel unsafe now?: No Are you made to feel afraid or neglected: No Advance Directives: No Advance Directives Information Provided: Yes Advance Directives on File: No Recently lost weight without trying: No Patient : No service: No Current occupational status: retired Cognitive needs: Yes Hearing needs: No Vision needs: Yes Meds Allergies Allergy/AdvReac Type Severity Reaction Status Date / Time No Known Allergies Allergy Verified 02/05/23 08:41 [No Known Allergies*] Home Medications Medication Instructions Recorded Confirmed Last Taken Type acetaminophen 325 mg tablet 975 mg PO Q8H PRN Pain (Scale 11/14/22 06/08/23 Unknown History Score 1-3) cholecalciferol (vitamin D3) 25 50 mcg PO DAILY 11/14/22 06/08/23 Unknown History mcg (1,000 unit) tablet multivitamin-iron 9 mg-folic acid 1 tab PO DAILY 11/14/22 06/08/23 Unknown History 400 mcg-calcium and minerals tablet (Therapeutic-M) sennosides 8.6 mg-docusate sodium 2 tab PO BEDTIME 11/14/22 06/08/23 Unknown History 50 mg tablet (Senexon-S) donepezil 5 mg tablet 5 mg PO BEDTIME 06/08/23 06/08/23 Unknown History simvastatin 20 mg tablet 20 mg PO BEDTIME 06/08/23 06/08/23 Unknown History Physical Exam Vital Signs and Narrative: Vital Signs: Last Vital Signs Temp 99.5 F 06/08/23 10:39 Pulse 82 06/08/23 12:09 Resp 16 06/08/23 12:09 BP 99/52 L 06/08/23 13:17 Pulse Ox 95 06/08/23 12:09 O2 Del Method Room Air 06/08/23 12:09 BMI result Body Mass Index 30.3 Constitutional: Alert, pleasantly confused, in no acute distress. Mental Status: Oriented to person only, not to place, time, or situation. Eyes: Pupils are equal, round, and reactive to light. Ear, Nose, and Throat: Oropharynx clear, mucous membranes moist. Ears and nose without deformities. Trachea midline. Respiratory: Clear to auscultation bilaterally. No wheezing, rales, or rhonchi. Cardiovascular: S1, S2 regular. No murmurs, rubs, or gallops. Gastrointestinal: Abdomen soft, non-tender, non-distended. Normal bowel sounds. Neurologic: Cranial nerves II-XII are grossly intact bilaterally. No focal neurological deficits. Moves all extremities spontaneously. Skin: Warm, dry. Musculoskeletal: No cyanosis or clubbing. Extremities: No edema. Psychiatric: Pleasantly confused. Results Labs 06/08/23 08:49 06/09/23 08:15 Labs: Laboratory Results - last 24 hr 06/08/23 06/08/23 08:49 14:32 MCV 92.9 MCH 32.0 MCHC 34.5 RDW 12.6 Plt Count 237 D MPV 11.1 Immature Gran % (Auto) 0.4 Neut % (Auto) 89.7 H Lymph % (Auto) 3.0 L [place] % (Auto) 6.3 Eos % (Auto) 0.0 Baso % (Auto) 0.6 Lymph # (Auto) 0.2 L [place] # (Auto) 0.5 Eos # (Auto) 0.0 Baso # (Auto) 0.1 Abs Immat Gran (auto) 0.03 Absolute Neuts (auto) 7.3 Absolute Nucleated RBC 0.000 Nucleated RBC % (auto) 0.0 PT 12.9 INR 1.1 APTT 30.1 Anion Gap 14 Estim Creat Clear Calc 46.6 Estimated GFR 44 Random Glucose 217 H Lactic Acid 1.3 Calcium 9.3 Total Bilirubin 0.7 AST 28 ALT 20 Alkaline Phosphatase 56 Total Protein 6.5 Albumin 3.7 Lipase 17 Urine Color Yellow Urine Appearance Clear Urine pH 5.5 Ur Specific [place] 1.025 Urine Protein Negative Urine Glucose (UA) Negative Urine Ketones Negative Urine Blood Trace H Urine Nitrite Positive H Ur Leukocyte Esterase Small (1+) H Urine RBC 0-2 Urine WBC 11-20 H Ur Squamous Epith Cells 0-2 Urine Bacteria 4+ Hyaline Casts 0-2 Influenza Type A (PCR) NEGATIVE Influenza Type B (PCR) NEGATIVE RSV RNA Qual (PCR) NEGATIVE SARS-CoV-2 RNA (RT-PCR) POSITIVE A Imaging Radiologist's Impressions: Impressions Chest X-Ray 06/08/23 09:14 IMPRESSION: No evidence of pneumonia. Assessment and Plan (1) Metabolic encephalopathy: Status: Acute (2) UTI (urinary tract infection): Status: Acute (3) COVID-19: Status: Acute Plan Pt is a 73-year-old female with a PMH significant for?HTN, vly-jdyddot-uwsevysux diabetes type 2, and unspecified dementia who presents to the ED with?altered mental status lethargy since yesterday. Pt will be admitted to the hospital for treatment further evaluation of acute metabolic encephalopathy and sepsis in setting of UTI. Acute metabolic encephalopathy and sepsis in the setting of UTI Patient with AMS, lethargy, foul-smelling urine since yesterday UA positive for UTI Meets sepsis criteria: fever, tachycardia, tachypnea; lactic acid 1.3 Will treat with ceftriaxone Monitor mentation Follow cultures Acute COVID infection Pt tested positive for COVID Slight nonproductive cough since yesterday, pt in no acute respiratory distress, not hypoxic, lungs CTA No indication for steroids, anti-virals at this time Pt with dementia at baseline, will not tolerate breathing treatments Will treat symptomatically with Vitamin C, acetaminophen for fever Dementia, unspecified Pt currently altered from baseline Continue memantine, donepezil HTN Continue losartan Non insulin dependent diabetes type 2 Hold metformin Continue Januvia Will place on sliding scale insulin Diabetic diet Full Code Attending:?Dr. Portillo DVT Prophylaxis: Lovenox Pt will require a hospitalization of at least two nights for treatment of?acute metabolic encephalopathy and sepsis in the setting of UTI. Patient will cry are IVF, IV antibiotics, and close monitoring of labs. Quality Stroke Does the patient have a stroke diagnosis?: No VTE Prior VTE?: No VTE Risk Level:: Medical - moderate - high VTE Device Contraindication: Treatment Not Indicated VTE Drug Contraindication: N/A - Med Ordered
--- NOTE | 2023-06-08 15:32 | PC.NURSE ---
pt appears much better than when she arrived after fluids/tylenol administration. pt is not as warm to touch, does not appear as lethargic, skin color is more appropriate. pt family also reporting positive changes in pt. pt ambulating to bathroom with 1 assist (daughter) with steady gait.
[2023-06-08] MEDS: Cholecalciferol (Vitamin D3) 25 MCG TABLET 50 MCG PO (16:28)
[2023-06-08] MEDS: Multivitamin TABLET 1 TAB PO (16:28)
[2023-06-08] MEDS: cefTRIAXone sodium 1 GM in 0.9 % Sodium Chloride 50 ML IV (16:31)
[2023-06-08] MEDS: Enoxaparin Sodium 40 MG/0.4 ML SYRINGE SUBCUT (16:32)
[2023-06-08] MEDS: 0.9 % Sodium Chloride 1,000 ML 100 ML IVCONT (16:55)
[2023-06-08] MEDS: Acetaminophen 325 MG TABLET 650 MG PO (16:57)
--- NOTE | 2023-06-08 16:59 | PC.NURSE ---
pt noted to have 100.7 rectal temp. medicated with prn tylenol per aug.
--- NOTE | 2023-06-08 18:27 | PC.NURSE ---
Addendum entered by Mago Mukherjee RN 06/08/23 18:39: pt should have sitter when on pt floor. pt family will be leaving for the night and will not be able to redirect her/stop her from pulling her IVs. Original Note: report complete. awaiting pt transport to room 474.
[2023-06-08 18:39] LABS: Glucose, Whole Blood 117 mg/dL (60-115)
[2023-06-08 22:15] LABS: Glucose, Whole Blood 89 mg/dL (60-115)
[2023-06-08] MEDS: Memantine HCl 10 MG TABLET PO (22:24)
[2023-06-08] MEDS: 0.9 % Sodium Chloride Flush 3 ML SYRINGE IVFLUSH (22:25)
[2023-06-08] MEDS: Atorvastatin Calcium 10 MG TABLET PO (23:52)
[2023-06-08] MEDS: Donepezil HCl 5 MG TABLET PO (23:52)
[2023-06-09 03:44] VITALS: BP 130/70; PULSE 80; RESP 17; TEMP 36.4; O2SAT 95
[2023-06-09 07:06] LABS: Glucose, Whole Blood 102 mg/dL (60-115)
[2023-06-09 07:32] VITALS: BP 126/68; PULSE 79; RESP 20; TEMP 36.7; O2SAT 97
[2023-06-09 08:42] LABS: Anion Gap 9 (12-20); Blood Urea Nitrogen 17 mg/dL (9-16); Calcium 8.5 mg/dL (8.4-10.2); Carbon Dioxide 22 mmol/L (22-29); Chloride 111 mmol/L (96-108); Creatinine Clr Calc Pharmacy 63.4; Estimated Glomerular Filt Rate > 60; Glucose Random 107 mg/dL (60-115); Potassium 3.8 mmol/L (3.3-5.1); Sodium 138 mmol/L (135-145)
[2023-06-09] MEDS: Multivitamin TABLET 1 TAB PO (09:48)
[2023-06-09] MEDS: Memantine HCl 10 MG TABLET PO ×2 (09:48→20:18)
[2023-06-09] MEDS: Escitalopram Oxalate 20 MG TABLET PO (09:48)
[2023-06-09] MEDS: SITagliptin Phosphate 25 MG TABLET PO (09:48)
[2023-06-09] MEDS: Cholecalciferol (Vitamin D3) 25 MCG TABLET 50 MCG PO (09:48)
[2023-06-09] MEDS: 0.9 % Sodium Chloride Flush 3 ML SYRINGE IVFLUSH ×2 (09:49→15:43)
[2023-06-09 10:56] LABS: Glucose, Whole Blood 144 mg/dL (60-115)
[2023-06-09 11:13] VITALS: BP 120/71; PULSE 76; RESP 20; TEMP 36.9; O2SAT 95
--- NOTE | 2023-06-09 15:24 | MHC.CM.PN ---
IMM 06/09/23 DELIVERED TO PT VIA /HCP PILAR AT DOOR TO ROOM, MITESH COMPLETED INTERVIEW OVER PHONE D/T COVID STATUS. PILAR REPORTS THAT PT IS INDEP W/MOBILITY, DOES HAVE A WALKER AND CANE AT HOME FROM WHEN SHE BROKE HER LEG HOWEVER DOES NOT USE THEM AND NO HOME SERVICES, PILAR REPORTS HE AND THEIR TWO DTRS ASSIST W/ANY NEEDS AND DOES NOT FEEL AT THIS TIME THEY WOULD NEED ANY HOME SERVICES. GOAL IS HOME NO SERVICES. PCP ON FILE VERIFIED AND PILAR REPORTS HE IS THE HCP AND WILL BRING IN A COPY WHEN HE VISITS TOMORROW.
[2023-06-09] MEDS: Enoxaparin Sodium 40 MG/0.4 ML SYRINGE SUBCUT (15:43)
[2023-06-09] MEDS: cefTRIAXone sodium 1 GM in 0.9 % Sodium Chloride 50 ML IV (15:43)
[2023-06-09 15:50] VITALS: BP 134/69; PULSE 73; RESP 18; TEMP 36.1; O2SAT 95
[2023-06-09 16:42] LABS: Glucose, Whole Blood 110 mg/dL (60-115)
--- NOTE | 2023-06-09 17:09 | HO.PM.IMPN ---
Subjective Subjective Date of Service: 06/09/23 Interval History: being followed for acute mental status change in UTI patient remains pleasantly confused unable to provide meaningful history, at bedside feels patient is not at her baseline patient refused breakfast, no nausea, no vomiting,, no fevers. Review of Systems unable to obtain due to mental status Physical Exam Vital Signs: Vital Signs: Last Vital Signs Temp 96.9 F 06/09/23 15:50 Pulse 73 06/09/23 15:50 Resp 18 06/09/23 15:50 BP 134/69 06/09/23 15:50 Pulse Ox 95 06/09/23 15:50 O2 Del Method Room Air 06/09/23 15:50 BMI result Body Mass Index 29.5 Const: Other: General awake alert pleasantly confused, resting comfortably in no acute distress. Neck no JVD. CVS regular rate rhythm, Respiratory lungs clear to auscultation, no respiratory distress, no wheeze, no rhonchi. Gastrointestinal abdomen soft, nontender, bowel sounds audible Extremities no clubbing cyanosis or edema. Neuro nonfocal ,moving all 4 extremity Skin no rash psych poor insight Objective Data Active Medications Acetaminophen (Acetaminophen 325 Mg Tablet) 650 mg PO Q6H PRN PRN Reason: Pain, Mild (Pain Scale 1-3) Last Admin: 06/08/23 16:57 Dose: 650 mg Documented By: JADA Atorvastatin Calcium (Atorvastatin Calcium 10 Mg Tablet) 10 mg PO BEDTIME [facility] Last Admin: 06/08/23 23:52 Dose: 10 mg Documented By: WAYLON Benzonatate (Benzonatate 100 Mg Capsule) 100 mg PO TID PRN PRN Reason: Cough Dextrose (Dextrose 50 % 25 Gm/50 Ml Syringe) 25 gm IVPUSH Q15M PRN; Protocol PRN Reason: per Hypoglycemia Standing Ord. Donepezil HCl (Donepezil Hcl 5 Mg Tablet) 5 mg PO BEDTIME [facility] Last Admin: 06/08/23 23:52 Dose: 5 mg Documented By: WAYLON Enoxaparin Sodium (Enoxaparin Sodium 40 Mg/0.4 Ml Syringe) 40 mg SUBCUT Q24H [facility] Last Admin: 06/09/23 15:43 Dose: 40 mg Documented By: SUSANA Escitalopram Oxalate (Escitalopram Oxalate 20 Mg Tablet) 20 mg PO DAILY [facility] Last Admin: 06/09/23 09:48 Dose: 20 mg Documented By: SUSANA Glucose (Glucose Gel 15 Gm Gel..Gram.) 15 gm PO Q15M PRN; Protocol PRN Reason: per Hypoglycemia Standing Ord. Ceftriaxone Sodium 1 gm/ (Sodium Chloride) 50 mls @ 100 mls/hr IV Q24H [facility] Last Infusion: 06/09/23 16:13 Dose: Infused Documented By: SUSANA Insulin Human Lispro (Insulin Lispro 100 Unit/Ml 3 Ml Vial) 0 unit SUBCUT QIDACHS [facility]; Protocol Last Admin: 06/09/23 16:38 Dose: Not Given Documented By: SUSANA Non-Admin Reason: No Insulin Coverage Losartan Potassium (Losartan Potassium 50 Mg Tablet) 50 mg PO DAILY [facility]; Protocol Last Admin: 06/08/23 19:30 Dose: Not Given Documented By: WAYLON Non-Admin Reason: Physician Held Med Memantine (Memantine Hcl 10 Mg Tablet) 10 mg PO BID [facility] Last Admin: 06/09/23 09:48 Dose: 10 mg Documented By: SUSANA Multivitamins/Vitamin C (Multivitamin Tablet) 1 tab PO DAILY [facility] Last Admin: 06/09/23 09:48 Dose: 1 tab Documented By: SUSANA Senna/Docusate Sodium (Sennosides/Docusate Sodium Tablet) 2 tab PO BEDTIME [facility] Last Admin: 06/09/23 00:28 Dose: Not Given Documented By: WAYLON Non-Admin Reason: Patient Refused Sitagliptin Phosphate (Sitagliptin Phosphate 25 Mg Tablet) 25 mg PO DAILY [facility] Last Admin: 06/09/23 09:48 Dose: 25 mg Documented By: SUSANA Sodium Chloride (0.9 % Sodium Chloride Flush 3 Ml Syringe) 3 ml IVFLUSH QSHIFT [facility] Last Admin: 06/09/23 15:43 Dose: 3 ml Documented By: SUSANA Trazodone HCl (Trazodone Hcl 25 Mg Halftab) 25 mg PO BEDTIME PRN PRN Reason: sleep Vitamin D (Cholecalciferol (Vitamin D3) 25 Mcg Tablet) 50 mcg PO DAILY [facility] Last Admin: 06/09/23 09:48 Dose: 50 mcg Documented By: SUSANA Labs 06/08/23 08:49 06/09/23 08:15 Labs: Laboratory Results - last 24 hr 06/08/23 06/08/23 06/09/23 18:35 20:26 06:58 Hold Purple Top SEE NOTE Anion Gap Estim Creat Clear Calc Estimated GFR POC Glucose 117 H 89 102 Random Glucose Calcium 06/09/23 06/09/23 06/09/23 08:15 10:53 16:35 Hold Purple Top Anion Gap 9 L Estim Creat Clear Calc 63.4 Estimated GFR > 60 POC Glucose 144 H 110 Random Glucose 107 Calcium 8.5 D Microbiology Microbiology Results: Microbiology 06/08/23 15:35 Urine Culture - Preliminary Urine clean catch - Urine elliott top Gram negative delma 06/08/23 08:56 Blood Culture - Preliminary Blood - Venous No growth after 24 hours. 06/08/23 08:49 Blood Culture - Preliminary Blood - Venous No growth after 24 hours. Assessment and Plan (1) UTI (urinary tract infection): Status: Acute (2) Metabolic encephalopathy: Status: Acute (3) COVID-19: Status: Acute Plan 73-year-old female with a PMH significant for?HTN, suz-tdrahpo-dpsparexc diabetes type 2, and unspecified dementia who presents to the ED with?altered mental status lethargy since yesterday. Pt will be admitted to the hospital for treatment further evaluation of acute metabolic encephalopathy and sepsis in setting of UTI. Acute metabolic encephalopathy and sepsis in the setting of UTI Persistent confusion, urine culture growing Gram-negative rods Meets sepsis criteria: fever, tachycardia, tachypnea; lactic acid 1.3 continue IV ceftriaxone day 2 follow final culture report case discussed with patient's he feels she is not at baseline Acute COVID infection Pt tested positive for COVID, no shortness of breath no hypoxia hold steroids Pt with dementia at baseline, will not tolerate breathing treatments continue Vitamin C, acetaminophen for fever Dementia, unspecified Pt currently altered from baseline Continue memantine, donepezil HTN Continue losartan Non insulin dependent diabetes type 2 Hold metformin Continue Januvia, insulin sliding scale and diabetic diet Full Code DVT Prophylaxis: Lovenox Pt will require continued inpatient hospitalization for treatment of?acute metabolic encephalopathy and sepsis in the setting of UTI. Quality Stroke Does the patient have a stroke diagnosis?: No VTE Prior VTE?: No VTE Risk Level:: Medical - moderate - high VTE Device Contraindication: Treatment Not Indicated VTE Drug Contraindication: N/A - Med Ordered
[2023-06-09 19:28] VITALS: BP 115/89; PULSE 69; RESP 20; TEMP 36.6; O2SAT 96
[2023-06-09 20:09] LABS: Glucose, Whole Blood 135 mg/dL (60-115)
[2023-06-09] MEDS: Donepezil HCl 5 MG TABLET PO (20:18)
[2023-06-09] MEDS: Atorvastatin Calcium 10 MG TABLET PO (20:19)
[2023-06-09] MEDS: Sennosides/Docusate Sodium TABLET 2 TAB PO (20:19)
[2023-06-10] VITALS: BP 123/71; PULSE 74; RESP 18; TEMP 37.1; O2SAT 98
[2023-06-10] MEDS: 0.9 % Sodium Chloride Flush 3 ML SYRINGE IVFLUSH ×2 (00:33→10:14)
[2023-06-10 03:14] VITALS: BP 148/78; PULSE 76; RESP 18; TEMP 36.7; O2SAT 96
[2023-06-10 07:18] LABS: Glucose, Whole Blood 115 mg/dL (60-115)
[2023-06-10 07:41] VITALS: BP 128/79; PULSE 63; RESP 20; TEMP 36.1; O2SAT 97
[2023-06-10] MEDS: Escitalopram Oxalate 20 MG TABLET PO (10:13)
[2023-06-10] MEDS: Memantine HCl 10 MG TABLET PO (10:14)
[2023-06-10] MEDS: Cholecalciferol (Vitamin D3) 25 MCG TABLET 50 MCG PO (10:14)
[2023-06-10] MEDS: SITagliptin Phosphate 25 MG TABLET PO (10:14)
[2023-06-10] MEDS: Multivitamin TABLET 1 TAB PO (10:14)
[2023-06-10 10:57] LABS: Glucose, Whole Blood 207 mg/dL (60-115)
--- NOTE | 2023-06-10 11:11 | P.DS_ITS ---
DS: Providers Provider Date of Service: 06/10/23 Date of admission: 06/08/23 15:37 Primary care physician: Franky Martino MD Consults: 06/08/23 22:12 Consult for Sitter Routine Reason for consultation: Altered mental status DS: Diagnosis Discharge Diagnosis (1) UTI (urinary tract infection): Status: Acute (2) Metabolic encephalopathy: Status: Acute (3) COVID-19: Status: Acute DS: Summary Hospital Course Hospital Course: Date of Service: 06/08/23 Attending physician on admission: Aurelia Portillo Chief Complaint: Generalized weakness, cough, AMS Pt is a 73-year-old female with a PMH significant for?HTN, uci-obztudi-yibfavmdh diabetes type 2, and unspecified dementia who presents to the ED with?altered mental status lethargy since yesterday. Patient is alert and oriented to self only and thus incapable of providing an accurate HPI which is instead obtained from family who is at bedside. Pt's states pt was mostly in her normal state of health except for having a mostly dry cough. Also notice her urine was rather foul-smelling. This morning when pt awoke she was altered -- not speaking much, more confused than baseline, and lethargic. Since pt normally has these symptoms when she has an infection, they brought her to the ED for further evaluation where she tested positive for both COVID and a UTI. In the ED pt had a fever up to 102.9, tachycardic up to 111, tachypneic up to 26, with soft BP as low as 95/56, satting at 95% on RA. Labs were significant for elevated blood glucose of 217, otherwise unremarkable. No leukocytosis. Stable H&H. Electrolytes WNL. Renal function baseline. UA positive for UTI, and patient tested positive for COVID. CXR showed no evidence of pneumonia. EKG demonstrated normal sinus rhythm without evidence of ST elevation or depressions. Pt was treated with IVF and acetaminophen. Pt will be admitted to the hospital for treatment further evaluation of acute metabolic encephalopathy and sepsis in setting of UTI. hospital course: 73-year-old female with a PMH significant for?HTN, umx-izhrbts-ctklhgqln diabetes type 2, and unspecified dementia who presents to the ED with?altered mental status lethargy admitted to the hospital for treatment further evaluation of acute metabolic encephalopathy and sepsis in setting of UTI. Acute metabolic encephalopathy and sepsis in the setting of UTI, admitted to medical floor treated with IV ceftriaxone urine culture grew E coli pansensitive, patient confusion resolved, now at baseline mental status as per ,all features of sepsis resolved, therefore discharged home on by mouth Ceftin. Acute COVID infection , tested positive for COVID, no shortness of breath, no h ypoxia recommend cough medication and Tylenol as needed Dementia, unspecified continue home medications memantine, and donepezil HTN Continue losartan Non insulin dependent diabetes type 2 stable blood sugars resume home medications and diabetic diet. Time Attestation Discharge coordination time: Greater than 30 minutes Quality: Safe Use of Opioids Does Pt have an Active Cancer Diagnosis on the Problem List?: No Quality: Stroke Does the patient have a stroke diagnosis?: No Physical Exam Vital Signs: Vital Signs: Last Vital Signs Temp 97.0 F 06/10/23 07:41 Pulse 63 06/10/23 07:41 Resp 20 06/10/23 07:41 BP 128/79 06/10/23 07:41 Pulse Ox 97 06/10/23 07:41 O2 Del Method Room Air 06/10/23 07:41 BMI result Body Mass Index 29.5 Const: Other: General awake alert, pleasantly confused, resting comfortably in no acute distress. Neck no JVD. CVS regular rate rhythm, Respiratory lungs clear to auscultation, no respiratory distress, no wheeze, no rhonchi. Gastrointestinal abdomen soft, non tender, bowel sounds audible Extremities no edema. Neuro nonfocal ,moving all 4 extremity Skin no rash psych poor insight DS: Data Data Completed and Pending Labs on day of discharge: Laboratory Results - last 24 hr 06/09/23 06/09/23 06/10/23 16:35 20:02 07:14 POC Glucose 110 135 H 115 06/10/23 10:53 POC Glucose 207 H Preliminary micro results at discharge 06/08/23 08:56 Blood Culture - Preliminary Blood - Venous No growth after 48 hours. 06/08/23 08:49 Blood Culture - Preliminary Blood - Venous No growth after 48 hours. Discharge Plan Discharge Anticipated Discharge Date/Time: 06/10/23 10:40 Patient Disposition: Home, Self-Care Discharge Diagnosis: UTI COVID-19 infection acute toxic metabolic encephalopathy Referrals: Franky Martino MD [Primary Care Provider] - 1 Week Discharge Medications: New cefuroxime axetil 250 mg tablet 250 mg PO BID Qty: 10 0RF Continued losartan 50 mg tablet 50 mg PO DAILY Qty: 90 8RF (DME) OneTouch Verio test strips Strip See Rx Instructions .Route Qty: 100 0RF Rx Instructions: As directed citalopram 40 mg tablet 40 mg PO DAILY Qty: 90 3RF metformin 500 mg tablet 1,000 mg PO BID Qty: 120 3RF trazodone 50 mg tablet 25 mg PO BEDTIME PRN (Reason: sleep) Qty: 30 4RF Januvia 25 mg tablet 25 mg PO DAILY Qty: 30 3RF memantine 10 mg tablet 10 mg PO BID Qty: 90 3RF donepezil 5 mg tablet 5 mg PO BEDTIME simvastatin 20 mg tablet 20 mg PO BEDTIME Therapeutic-M 9 mg iron-400 mcg tablet 1 tab PO DAILY cholecalciferol (vitamin D3) 25 mcg (1,000 unit) tablet 50 mcg PO DAILY sennosides-docusate sodium [Senexon-S] 8.6-50 mg tablet 2 tab PO BEDTIME acetaminophen 325 mg tablet 975 mg PO Q8H PRN (Reason: Pain (Scale Score 1-3)) Discharge Orders: Discharge Order (Routine); Ordered 06/10/23 Ordered By: Aurelia Portillo Diet: Advance to usual diet Activity on Discharge: As tolerated Stand Alone Forms: Patient Portal Discharge page Care Plan Goals: acute UTI take Ceftin 1 tablet twice daily for 5 days COVID infection take cough medication as needed/ Tylenol for fever or pain Health Concerns: continue all home medications Plan of Treatment: outpatient follow-up with PCP call for appointment Assessment: as above
--- NOTE | 2023-06-10 11:23 | MHC.CM.PN ---
PT MEDICALLY CLEARED FOR DC HOME SELF CARE, PILAR FOR TRANSPORT
== END 2023-06-10 12:00 | disposition home or self-care (01) | DRG 871 ==
LOC: HO.ED 08:56 → HO.EDOVER 15:49 → HO.IMC 16:13
PROVIDERS: Admitting Provider Student in an Organized Health Care Education/Training Program; Emergency Provider Emergency Medicine Emergency Medical Services; PCP Internal Medicine; Visit Provider Hospitalist
DX: A41.9 Sepsis, unspecified organism (principal); G93.41 Metabolic encephalopathy; U07.1 COVID-19; N39.0 Urinary tract infection, site not specified; B96.20 Unspecified Escherichia coli [E. coli] as the cause of diseases classified elsewhere; E11.9 Type 2 diabetes mellitus without complications; F03.90 Unspecified dementia, unspecified severity, without behavioral disturbance, psychotic disturbance, mood disturbance, and anxiety; E78.5 Hyperlipidemia, unspecified; I10 Essential (primary) hypertension; Z79.84 Long term (current) use of oral hypoglycemic drugs; Z79.899 Other long term (current) drug therapy
CPT/HCPCS: 0241U; 36415; 71045; 80048; 80053; 81001; 82947; 83605; 83690; 84484; 85025; 85610; 85730; 87040; 87086; 87088; 87186; 93005; 99285; J0696; J1650

== ENCOUNTER → 2023-06-08 08:39 | Outpatient (BNV) | payer MEDICARE, SELFPAY | PROVIDERS: Admitting Provider Student in an Organized Health Care Education/Training Program; Emergency Provider Emergency Medicine Emergency Medical Services; PCP Internal Medicine; Visit Provider Internal Medicine Cardiovascular Disease | DX: R94.31 Abnormal electrocardiogram [ECG] [EKG] (principal) | CPT/HCPCS: 93010 ==

== ENCOUNTER → 2023-06-08 15:37 | Outpatient (BNV) | payer MEDICARE, SELFPAY | PROVIDERS: Admitting Provider Student in an Organized Health Care Education/Training Program; Emergency Provider Emergency Medicine Emergency Medical Services; PCP Internal Medicine; Visit Provider Student in an Organized Health Care Education/Training Program | DX: U07.1 COVID-19 (principal); N39.0 Urinary tract infection, site not specified; G93.41 Metabolic encephalopathy | CPT/HCPCS: 99223; 99233; 99239 ==

== ENCOUNTER 2023-06-27 09:37 | Outpatient (AMB) | payer MEDICARE, SELFPAY ==
[2023-06-27 09:40] VITALS: BP 110/70; PULSE 70; O2SAT 96; BMI 26.6
--- NOTE | 2023-06-27 09:40 | MHC.PC.OV ---
Vital Signs 06/27/23 09:40 Height 5 ft 6 in Weight 165 lb BMI 26.6 BP 110/70 Blood Pressure Location Lt brachial Position Sitting Pulse 70 Pulse Source Pulse Oximeter Pulse Oximetry (%) 96 Oxygen Delivery Method Room Air Intake Visit Reasons: 4 month f/u Plan Rep Required: No Heel Stainer: Present Allergies No Known Allergies [No Known Allergies*] Allergy (Verified 06/27/23 09:40) Medication List - Last Reconciled 06/27/23 by Franky Martino MD acetaminophen 975 mg PO Q8H PRN blood sugar diagnostic ([employer] Verio test strips) As directed cefuroxime axetil 250 mg PO BID cholecalciferol (vitamin D3) 50 mcg PO DAILY citalopram 40 mg PO DAILY donepezil 5 mg PO BEDTIME losartan 50 mg PO DAILY memantine 10 mg PO BID metformin 1,000 mg (2 x 500 mg) PO BID puzuaijx-vqyx-JP-calcium-mins 9 mg iron-400 mcg (Therapeutic-M) 1 tab PO DAILY sennosides-docusate sodium 8.6-50 mg (Senexon-S) 2 tabs PO BEDTIME simvastatin 20 mg PO BEDTIME sitagliptin phosphate (Januvia) 25 mg PO DAILY trazodone 25 mg (1/2 x 50 mg) PO BEDTIME PRN Tobacco use date assessed: 02/05/23 Fall risk assessment: 1 Fall in past year Last assessed Fall Risk: 06/27/23 Dental Screening Dental Screen Date: 06/27/23 Did you have a dental visit in the last 12 months?: No Did you have a dental problem in the last 6 months where you did not have access to dental care?: No Was dental information given to patient?: Patient has dentist HPI 4 month f/u HPI Details DM HTN and hyperlip; doing well and compliant [facility] Medical History Hyperlipidemia associated with type 2 diabetes mellitus Post-menopausal Eye exam, routine Screening for breast cancer Screening for colon cancer Screening for diabetes mellitus Hyperlipidemia Hypertension Surgical History History of ankle surgery History of colonoscopy History of partial hysterectomy History of cholecystectomy History of tonsillectomy Family History Father Alcohol abuse Mother Liver problem Family/Other Alcoholism Social History Household Members: Spouse Housing: House Do you presently have visiting nurse or other home services: No Alcohol intake: never Comment: 1:1 sitter Patient Tobacco Use Status: Never used Tobacco e-Cigarette/Vaping Use: Never Used Second Hand Smoke Exposure: No service: No Current occupational status: retired Cognitive needs: Yes Hearing needs: No Vision needs: Yes Questionnaire PHQ-9 Over the last 2 weeks, how often have you been bothered by any of the following problems? 1. Little interest or pleasure in doing things: not at all 2. Feeling down, depressed, or hopeless: not at all 3. Trouble falling or staying asleep, or sleeping too much: not at all 4. Feeling tired or having little energy: not at all 5. Poor appetite or overeating: not at all 6. Feeling bad about yourself - or that you are a failure or have let yourself or your family down: not at all 7. Trouble concentrating on things, such as reading the newspaper or watching television: not at all 8. Moving or speaking so slowly that other people could have noticed. Or the opposite - being so fidgety or restless that you have been moving around a lot more than usual: not at all 9. Thoughts that you would be better off or of hurting yourself in some way: not at all Total score: 0 Depression Screening Interpretation: Negative Depression Screening Done: Yes 10166 - PHQ-9 Billing: Yes Source: Developed by Drs. Tyree Weems, Dennise Newton, Remigio Lau and colleagues, with an educational sri from [employer]. Thrive Questionnaire Date Thrive assessed: 06/27/23 I am a: Patient What is your living situation today?: I have a steady place to live Within the past 12 months, did the food you bought not last and you didn't have the money to get more?: Never true Within the past 12 months, did you worry whether your food would run out before you got money to buy more?: Never true Do you have trouble paying for medicines?: No Do you have trouble getting transportation to medical appointments?: No Do you have trouble paying your heating and electricity bill?: No Do you have trouble taking care of your child, family member or friend?: No Do you have trouble with day-to-day activities such as bathing, preparing meals, shopping, managing finances, etc.?: No Are you currently unemployed and looking for a job?: No Are you interested in more education?: No Please select the resources that you would like help with: None RAJWINDER-7 AMB Questionnaire RAJWINDER-7 Date RAJWINDER - 7 assessed: 06/27/23 Feeling nervous, anxious, or on edge: 0 = Not at all Not being able to stop or control worryin = Not at all Worrying too much about different things: 0 = Not at all Trouble relaxin = Not at all Being so restless that it is hard to sit still: 0 = Not at all Becoming easily annoyed or irritable: 0 = Not at all Feeling afraid as if something awful might happen: 0 = Not at all Total RAJWINDER-7 score (0-4 normal; 5-9 mild; 10-14 moderate; 15-21 severe): 0 Source: Developed by Drs. Tyree Weems, Dennise Newton, Remigio Lau and colleagues, with an educational sri from [employer]. RAJWINDER-7 Assessment Billing RAJWINDER-7 Assessment Tool: RAJWINDER-7 Assessment 65837 Review of Systems Const Denies chills, Denies headache(s) and Denies weight loss ENT Denies headache(s) Card Denies chest pain, Denies syncope, Denies irregular heart rhythm and Denies dyspnea Resp Denies chest congestion, Denies cough and Denies dyspnea GI Denies abdominal pain, Denies change in stool character, Denies nausea and Denies vomiting Musc Denies deformity and Denies joint swelling Neuro Denies syncope and Denies headache(s) Physical exam (Primary Care) Vital Signs: Last Vital Signs Pulse 70 06/27/23 09:40 BP 110/70 06/27/23 09:40 Pulse Ox 96 06/27/23 09:40 Oxygen Delivery Method Room Air 06/27/23 09:40 BMI result Body Mass Index 26.6 Tobacco/Smoking Status: Tobacco use Status Tobacco use date assessed 02/05/23 06/27/23 09:42 Patient Tobacco Use Status Never used Tobacco 06/27/23 09:42 e-Cigarette/Vaping Use Never Used 06/27/23 09:42 PHQ-9: PHQ-9 Score PHQ-9: Total score 0 06/27/23 10:04 Depression Screening Interpretation: Negative Thrive Assessment: Date of Thrive Assessment Date Thrive assessed 06/27/23 06/27/23 09:42 Const General: cooperative, comfortable, no acute distress and alert Neck Neck: Yes no lymphadenopathy Thyroid: Thyroid normal Resp Effort & Inspection: normal respiratory effort Auscultation: clear to auscultation bilaterally Percussion: percussion normal Cardio Jugular venous distension: no JVD Palpation: normal PMI Rate: regular rate Rhythm: regular rhythm Heart sounds: S1 normal heart sound present and S2 normal heart sound present GI Inspection: Yes normal to inspection Palpation (GI): No hepatosplenomegaly present Skin General skin exam: no rashes or lesions noted Extrem General: Yes no clubbing, cyanosis or edema Office Procedures Flu Questionnaire Does the patient have a severe egg allergy?: No Does the patient have severe life threatening allergies?: No Does the patient have a fever or illness today?: No Has the patient ever had Guillain-Lizemores Syndrome?: No Has the patient ever had any past reaction to a flu shot?: No Immunizations flu vacc [id number] 6mos up(PF) 60 mcg(15 mcgx4)/0.5 mL IM syringe Performing Provider: Franky Martino MD Performing Location: [facility] Administered by: MICHELLE Baron on 06/27/23 10:04 Dose Route Admin Location Dispensed Lot Number Expiration Date [facility] Construction Controller 0.5 mL IM Left Deltoid 0.5 mL [id number] 12/23/23 58568-766-15 [employer] VIS Given Date VIS Provided VIS Publication Date 06/27/23 Single Vaccine 21 Eligibility Eligibility Date Funding Source Not [facility] Eligible 06/27/23 Private Assessment and Plan Assessment & Plan (1) Diabetes mellitus with coincident hypertension: Code(s): E11.9 - Type 2 diabetes mellitus without complications; I10 - Essential (primary) hypertension Plan: stable; same rx (2) Hyperlipidemia: Code(s): E78.5 - Hyperlipidemia, unspecified Qualifiers: Hyperlipidemia type: unspecified Qualified Code(s): E78.5 - Hyperlipidemia, unspecified Plan: stble; same rx; do pam=bs (3) Hypertension: Code(s): I10 - Essential (primary) hypertension Qualifiers: Hypertension type: unspecified Qualified Code(s): I10 - Essential (primary) hypertension Plan: stable Orders: Orders Lipid Panel Today E78.5 - Hyperlipidemia, unspecified Complete Blood Count Auto Diff Today D64.9 - Anemia, unspecified Hemoglobin A1c Today R73.9 - Hyperglycemia, unspecified Influenza [id number] Immunization Today Z23 - Encounter for immunization Comprehensive Fraser. Panel Fast Today N28.9 - Disorder of kidney and ureter, unspecified Thyroid Stimulating Hormone Today E03.9 - Hypothyroidism, unspecified Coding Level of Care Code Est Pt Level 4 (48460) Diagnoses Diabetes mellitus with coincident hypertension E11.9; I10 Hyperlipidemia, unspecified hyperlipidemia type E78.5 Hyperlipidemia type: unspecified Hypertension, unspecified type I10 Hypertension type: unspecified Additional Codes RAJWINDER-7 Assessment Billing - RAJWINDER-7 Assessment Tool: RAJWINDER-7 Assessment [id number] ([id number])
== END 2023-06-27 10:06 | disposition home or self-care (01) ==
PROVIDERS: PCP Internal Medicine; Visit Provider Internal Medicine
DX: E11.69 Type 2 diabetes mellitus with other specified complication (principal); I10 Essential (primary) hypertension; E78.5 Hyperlipidemia, unspecified; Z23 Encounter for immunization
CPT/HCPCS: 90471; 90686; 99214

== ENCOUNTER 2023-10-19 06:59 | Outpatient (REF) | payer MEDICARE, MEDICAID, SELFPAY ==
[2023-10-19 07:09] LABS: MANUAL DIFF FLAG NO
[2023-10-19 07:50] LABS: Basophils Absolute Auto 0.1 X10*3/uL (0.0-0.2); Basophils Percent Auto 0.9 % (0-2); Eosinophils Absolute Auto 0.1 X10*3/uL (0.0-0.4); Eosinophils Percent Auto 1.7 % (0-4); Hematocrit 38.2 % (37.0-47.0); Hemoglobin 12.9 g/dl (12.0-16.0); Imm Gran Abs Auto 0.02 X10*3/uL (0.00-0.03); Imm Gran Pct Auto 0.3 % (0.0-0.4); Lymphocytes Absolute Auto 2.5 X10*3/uL (1.2-4.9); Lymphocytes Percent Auto 35.2 % (20-40); Mean Corpuscular HGB Conc 33.8 g/dl (31.0-35.0); Mean Corpuscular Hemoglobin 32.9 pg (27.0-33.0); Mean Corpuscular Volume 97.4 fL (80.0-98.0); Mean Platelet Volume 11.8 fL (9.4-12.3); Monocytes Absolute Auto 0.5 X10*3/uL (0.1-1.2); Monocytes Percent Auto 6.8 % (2-11); Neutrophils Absolute Auto 3.9 x10*3/uL (2.0-8.3); Neutrophils Percent Auto 55.1 % (45-73); Platelet Count 280 X10*3/uL (160-400); Red Blood Count 3.92 X10*6/uL (4.20-5.50); Red Cell Distribution Width 12.5 % (11.0-16.0)
[2023-10-19 07:58] LABS: Estimated Average Glucose 114 mg/dL; Hemoglobin A1c % 5.6 % (<6.0)
[2023-10-19 08:25] LABS: Alanine Aminotransferase 9 U/L (0-31); Albumin Level 3.8 g/dL (3.5-5.0); Alkaline Phosphatase 51 U/L (39-117); Anion Gap 12 (12-20); Aspartate Amino Transferase 13 U/L (5-31); Bilirubin Total 0.5 mg/dL (0.0-1.0); Blood Urea Nitrogen 33 mg/dL (9-16); Calcium 9.1 mg/dL (8.4-10.2); Carbon Dioxide 24 mmol/L (22-29); Chloride 110 mmol/L (96-108); Cholesterol 112 mg/dL (<200); Estimated Glomerular Filt Rate 58; Glucose Fasting 114 mg/dL (60-99); HDL Cholesterol 43 mg/dL (>40); LDL Cholesterol Calculated 56 mg/dL (<100); Potassium 4.1 mmol/L (3.3-5.1); Sodium 142 mmol/L (135-145); Total Protein 6.5 g/dL (6.5-8.0); Triglycerides 67 mg/dL (<150)
[2023-10-19 08:43] LABS: Thyroid Stimulating Hormone 3.11 uIU/mL (0.32-4.0)
== END 2023-10-19 07:00 | disposition home or self-care (01) ==
LOC: HO.LAB 06:59
PROVIDERS: PCP Internal Medicine; Visit Provider Internal Medicine
DX: E78.5 Hyperlipidemia, unspecified (principal); N28.9 Disorder of kidney and ureter, unspecified; R73.9 Hyperglycemia, unspecified; D64.9 Anemia, unspecified; E03.9 Hypothyroidism, unspecified
CPT/HCPCS: 36415; 80053; 80061; 83036; 84443; 85025

== ENCOUNTER 2023-11-14 10:59 | Outpatient (AMB) | payer MEDICARE, MEDICAID, SELFPAY ==
[2023-11-14 11:00] VITALS: BP 110/58; PULSE 85; O2SAT 98; BMI 28.2
--- NOTE | 2023-11-14 11:00 | A.OFFPC_ITS ---
Vital Signs 11/14/23 11:00 Height 5 ft 6 in Weight 175 lb BMI 28.2 BP 110/58 L Blood Pressure Location Lt brachial Position Sitting Pulse 85 Pulse Source Pulse Oximeter Pulse Oximetry (%) 98 Oxygen Delivery Method Room Air Intake Visit Reasons: 4mth f/u Teaching Associate Required: No Licensed Prosthetist/Orthotist: Present Accompanied by: Spouse Allergies No Known Allergies [No Known Allergies*] Allergy (Verified 11/14/23 11:01) Tobacco use date assessed: 11/14/23 Fall risk assessment: No Falls in past year Last assessed Fall Risk: 11/14/23 Dental Screening Dental Screen Date: 06/27/23 HPI 4mth f/u HPI Details HTN DM and hyperlip on rx; doing well and compliant; labs good [facility] Medical History Hyperlipidemia associated with type 2 diabetes mellitus Post-menopausal Eye exam, routine Screening for breast cancer Screening for colon cancer Screening for diabetes mellitus Hyperlipidemia Hypertension Surgical History History of ankle surgery History of colonoscopy History of partial hysterectomy History of cholecystectomy History of tonsillectomy Family History Father Alcohol abuse Mother Liver problem Family/Other Alcoholism Social History Household Members: Spouse Housing: House Do you presently have visiting nurse or other home services: No Alcohol intake: never Comment: 1:1 sitter Patient Tobacco Use Status: Never used Tobacco e-Cigarette/Vaping Use: Never Used Second Hand Smoke Exposure: No service: No Current occupational status: retired Cognitive needs: Yes Hearing needs: No Vision needs: Yes Questionnaire Thrive Questionnaire Date Thrive assessed: 06/27/23 RAJWINDER-7 AMB Questionnaire RAJWINDER-7 Date RAJWINDER - 7 assessed: 06/27/23 Source: Developed by Drs. Tyree Weems, Dennise Newton, Remigio Lau and colleagues, with an educational sri from [employer]. Review of Systems Const Denies chills, Denies headache(s) and Denies weight loss ENT Denies headache(s) Card Denies chest pain, Denies syncope, Denies irregular heart rhythm and Denies dyspnea Resp Denies chest congestion, Denies cough and Denies dyspnea GI Denies abdominal pain, Denies change in stool character, Denies nausea and Denies vomiting Musc Denies deformity and Denies joint swelling Neuro Denies syncope and Denies headache(s) Physical exam (Primary Care) Vital Signs: Last Vital Signs Pulse 85 11/14/23 11:00 BP 110/58 L 11/14/23 11:00 Pulse Ox 98 11/14/23 11:00 Oxygen Delivery Method Room Air 11/14/23 11:00 BMI result Body Mass Index 28.2 Tobacco/Smoking Status: Tobacco use Status Tobacco use date assessed 11/14/23 11/14/23 11:01 Patient Tobacco Use Status Never used Tobacco 11/14/23 11:01 e-Cigarette/Vaping Use Never Used 11/14/23 11:01 Thrive Assessment: Date of Thrive Assessment Date Thrive assessed 06/27/23 11/14/23 11:01 Const General: cooperative, comfortable, no acute distress and alert Neck Neck: Yes no lymphadenopathy Thyroid: Thyroid normal Resp Effort & Inspection: normal respiratory effort Auscultation: clear to auscultation bilaterally Percussion: percussion normal Cardio Jugular venous distension: no JVD Palpation: normal PMI Rate: regular rate Rhythm: regular rhythm Heart sounds: S1 normal heart sound present and S2 normal heart sound present GI Inspection: Yes normal to inspection Palpation (GI): No hepatosplenomegaly present Skin General skin exam: no rashes or lesions noted Extrem General: Yes no clubbing, cyanosis or edema Assessment and Plan Assessment & Plan (1) Diabetes mellitus with coincident hypertension: Code(s): E11.9 - Type 2 diabetes mellitus without complications; I10 - Essential (primary) hypertension Plan: stable; same rx (2) Hyperlipidemia associated with type 2 diabetes mellitus: Code(s): E11.69 - Type 2 diabetes mellitus with other specified complication; E78.5 - Hyperlipidemia, unspecified Plan: stable; same rx (3) Hypertension: Code(s): I10 - Essential (primary) hypertension Qualifiers: Hypertension type: unspecified Qualified Code(s): I10 - Essential (primary) hypertension Plan: stable; same rx Orders: Orders Lipid Panel Today Z13.220 - Encounter for screening for lipoid disorders Hemoglobin A1c Today R73.9 - Hyperglycemia, unspecified Glucose Fasting Today R73.9 - Hyperglycemia, unspecified Coding Level of Care Code Est Pt Level 4 (54066) Diagnoses Diabetes mellitus with coincident hypertension E11.9; I10 Hyperlipidemia associated with type 2 diabetes mellitus E11.69; E78.5 Hypertension, unspecified type I10 Hypertension type: unspecified
== END 2023-11-14 11:17 | disposition home or self-care (01) ==
PROVIDERS: PCP Internal Medicine; Visit Provider Internal Medicine
DX: E11.9 Type 2 diabetes mellitus without complications (principal); I10 Essential (primary) hypertension; E11.69 Type 2 diabetes mellitus with other specified complication; E78.5 Hyperlipidemia, unspecified
CPT/HCPCS: 99214

== ENCOUNTER 2024-03-07 09:42 | Outpatient (REF) | payer MEDICARE, MEDICAID, SELFPAY ==
[2024-03-07 10:05] LABS: Estimated Average Glucose 111 mg/dL; Hemoglobin A1c % 5.5 % (<6.0)
[2024-03-07 10:29] LABS: Cholesterol 107 mg/dL (<200); Glucose Fasting 107 mg/dL (60-99); HDL Cholesterol 45 mg/dL (>40); LDL Cholesterol Calculated 44 mg/dL (<100); Triglycerides 90 mg/dL (<150)
== END 2024-03-07 09:43 | disposition home or self-care (01) ==
LOC: HO.LAB 09:42
PROVIDERS: PCP Internal Medicine; Visit Provider Internal Medicine
DX: R73.9 Hyperglycemia, unspecified (principal); Z13.220 Encounter for screening for lipoid disorders
CPT/HCPCS: 36415; 80061; 82947; 83036

== ENCOUNTER 2024-03-20 11:24 | Outpatient (AMB) | payer MEDICARE, MEDICAID, SELFPAY ==
--- NOTE | 2024-03-20 11:26 | A.OFFPC_ITS ---
Vital Signs 03/20/24 11:34 Height 5 ft 6 in Weight 171 lb BMI 27.6 BP 132/68 Blood Pressure Location Lt brachial Position Sitting Pulse 67 Pulse Source Pulse Oximeter Pulse Oximetry (%) 96 Oxygen Delivery Method Room Air Intake Visit Reasons: 4 Month F/U Consumer Loan Underwriter Required: No Accompanied by: Spouse Allergies No Known Allergies [No Known Allergies*] Allergy (Verified 03/20/24 11:35) Medication List - Last Reconciled 03/20/24 by Franky Martino MD acetaminophen 975 mg PO Q8H PRN blood sugar diagnostic ([employer] Verio test strips) As directed cefuroxime axetil 250 mg PO BID cholecalciferol (vitamin D3) 50 mcg PO DAILY citalopram 40 mg PO DAILY donepezil 5 mg PO BEDTIME losartan 50 mg PO DAILY memantine 10 mg PO BID metformin 1,000 mg (2 x 500 mg) PO BID bawfsbav-wvrt-JI-calcium-mins 9 mg iron-400 mcg (Therapeutic-M) 1 tab PO DAILY sennosides-docusate sodium 8.6-50 mg (Senexon-S) 2 tabs PO BEDTIME simvastatin 20 mg PO BEDTIME sitagliptin phosphate (Januvia) 25 mg PO DAILY sulfamethoxazole-trimethoprim 800-160 mg (Bactrim DS) 1 tab PO BID trazodone 25 mg (1/2 x 50 mg) PO BEDTIME PRN Tobacco use date assessed: 11/14/23 Fall risk assessment: No Falls in past year Last assessed Fall Risk: 03/20/24 Dental Screening Dental Screen Date: 06/27/23 HPI 4 Month F/U HPI Details hyperlipidemia on rx; doing well and compliant [facility] Medical History Hyperlipidemia associated with type 2 diabetes mellitus Post-menopausal Eye exam, routine Screening for breast cancer Screening for colon cancer Screening for diabetes mellitus Hyperlipidemia Hypertension Surgical History History of ankle surgery History of colonoscopy History of partial hysterectomy History of cholecystectomy History of tonsillectomy Family History Father Alcohol abuse Mother Liver problem Family/Other Alcoholism Social History (Reviewed 06/27/23 @ 09:41 by HUY Baron Household Members: Spouse Housing: House Do you presently have visiting nurse or other home services: No Alcohol intake: never Comment: 1:1 sitter Patient Tobacco Use Status: Never used Tobacco Tobacco use type: Cigarette e-Cigarette/Vaping Use: Never Used Second Hand Smoke Exposure: No service: No Current occupational status: retired Cognitive needs: Yes Hearing needs: No Vision needs: Yes Questionnaire PHQ-9 Over the last 2 weeks, how often have you been bothered by any of the following problems? 1. Little interest or pleasure in doing things: not at all 2. Feeling down, depressed, or hopeless: not at all 3. Trouble falling or staying asleep, or sleeping too much: not at all 4. Feeling tired or having little energy: not at all 5. Poor appetite or overeating: not at all 6. Feeling bad about yourself - or that you are a failure or have let yourself or your family down: not at all 7. Trouble concentrating on things, such as reading the newspaper or watching television: not at all 8. Moving or speaking so slowly that other people could have noticed. Or the opposite - being so fidgety or restless that you have been moving around a lot more than usual: not at all 9. Thoughts that you would be better off or of hurting yourself in some way: not at all Total score: 0 Depression Screening Interpretation: Negative Depression Screening Done: Yes 05756 - PHQ-9 Billing: Yes Source: Developed by Drs. Tyree Weems, Remigio Esposito and colleagues, with an educational sri from [employer]. Thrive Questionnaire Date Thrive assessed: 06/27/23 Are you currently unemployed and looking for a job?: No AUDIT C Alcohol Use Questionnaire (AUDIT-C) 1. How often do you have a drink containing alcohol?: Never 2. How many drinks containing alcohol do you have on a typical day when you are drinking?: 1 or 2 3. How often do you have six or more drinks on one occasion?: Never Total Score: 0 Score Reviewed/Action Taken: Yes RAJWINDER-7 AMB Questionnaire RAJWINDER-7 Date RAJWINDER - 7 assessed: 06/27/23 Source: Developed by Drs. Tyree L. Dennise Weems, Remigio Lau and colleagues, with an educational sri from [employer]. Review of Systems Const Denies chills, Denies headache(s) and Denies weight loss ENT Denies headache(s) Card Denies chest pain, Denies syncope, Denies irregular heart rhythm and Denies dyspnea Resp Denies chest congestion, Denies cough and Denies dyspnea GI Denies abdominal pain, Denies change in stool character, Denies nausea and Denies vomiting Musc Denies deformity and Denies joint swelling Neuro Denies syncope and Denies headache(s) Physical exam (Primary Care) Vital Signs: Last Vital Signs Pulse 67 03/20/24 11:34 BP 132/68 03/20/24 11:34 Pulse Ox 96 03/20/24 11:34 Oxygen Delivery Method Room Air 03/20/24 11:34 BMI result Body Mass Index 27.6 Tobacco/Smoking Status: Tobacco use Status Tobacco use date assessed 11/14/23 03/20/24 11:26 Patient Tobacco Use Status Never used Tobacco 03/20/24 11:26 Tobacco use type Cigarette 03/20/24 11:35 e-Cigarette/Vaping Use Never Used 03/20/24 11:26 PHQ-9: PHQ-9 Score PHQ-9: Total score 0 03/20/24 11:35 Depression Screening Interpretation: Negative Thrive Assessment: Date of Thrive Assessment Date Thrive assessed 06/27/23 03/20/24 11:26 Const General: cooperative, comfortable, no acute distress and alert Neck Neck: Yes no lymphadenopathy Thyroid: Thyroid normal Resp Effort & Inspection: normal respiratory effort Auscultation: clear to auscultation bilaterally Percussion: percussion normal Cardio Jugular venous distension: no JVD Palpation: normal PMI Rate: regular rate Rhythm: regular rhythm Heart sounds: S1 normal heart sound present and S2 normal heart sound present GI Inspection: Yes normal to inspection Palpation (GI): No hepatosplenomegaly present Skin General skin exam: no rashes or lesions noted Extrem General: Yes no clubbing, cyanosis or edema Assessment and Plan Assessment & Plan (1) Hyperlipidemia: Code(s): E78.5 - Hyperlipidemia, unspecified Qualifiers: Hyperlipidemia type: unspecified Qualified Code(s): E78.5 - Hyperlipidemia, unspecified Plan: stable; same rx Orders: Orders Lipid Panel Today Z13.220 - Encounter for screening for lipoid disorders Glucose Fasting Today R73.9 - Hyperglycemia, unspecified Hemoglobin A1c Today R73.9 - Hyperglycemia, unspecified Coding Level of Care Code Est Pt Level 3 (53590) Diagnoses Hyperlipidemia, unspecified hyperlipidemia type E78.5 Hyperlipidemia type: unspecified
[2024-03-20 11:34] VITALS: BP 132/68; PULSE 67; O2SAT 96; BMI 27.6
== END 2024-03-20 11:44 | disposition home or self-care (01) ==
PROVIDERS: PCP Internal Medicine; Visit Provider Internal Medicine
DX: E78.5 Hyperlipidemia, unspecified (principal)

== ENCOUNTER → 2024-03-20 11:24 | Outpatient (BNVA) | payer MEDICARE, MEDICAID, SELFPAY | PROVIDERS: PCP Internal Medicine; Visit Provider Internal Medicine | DX: E78.5 Hyperlipidemia, unspecified (principal) | CPT/HCPCS: 99212 ==

== ENCOUNTER 2024-07-14 11:26 | Outpatient (AMB) | payer MEDICARE, MEDICAID, SELFPAY ==
--- NOTE | 2024-07-14 11:31 | MHC.PC.OV ---
Vital Signs 07/14/24 11:33 Height 5 ft 6 in Weight 1514 lb 9.211 oz BMI 244.4 BP 92/60 Blood Pressure Location Lt brachial Position Sitting Pulse 51 Pulse Source Pulse Oximeter Temp 97.1 F Temp Source Temporal Artery Scan Pulse Oximetry (%) 98 Oxygen Delivery Method Room Air Intake Visit Reasons: 3 month f/u Intake Note: Patient is here to follow up on DM, HLD, HTN. Pizza Delivery Required: No Director [facility]: Present Accompanied by: Spouse Allergies No Known Allergies [No Known Allergies*] Allergy (Verified 07/14/24 11:32) Tobacco use date assessed: 07/14/24 Fall risk assessment: No Falls in past year Last assessed Fall Risk: 07/14/24 Dental Screening Dental Screen Date: 07/14/24 Did you have a dental visit in the last 12 months?: Yes Did you have a dental problem in the last 6 months where you did not have access to dental care?: No Was dental information given to patient?: Patient has dentist HPI 3 month f/u HPI Details DM on Rx; progressive cognitive decline managed by luis [facility]ZO Medical History Hyperlipidemia associated with type 2 diabetes mellitus Post-menopausal Eye exam, routine Screening for breast cancer Screening for colon cancer Screening for diabetes mellitus Hyperlipidemia Hypertension Surgical History History of ankle surgery History of colonoscopy History of partial hysterectomy History of cholecystectomy History of tonsillectomy Family History Father Alcohol abuse Mother Liver problem Family/Other Alcoholism Social History Household Members: Spouse Housing: House Do you presently have visiting nurse or other home services: No Alcohol intake: never Comment: 1:1 sitter Patient Tobacco Use Status: Never used Tobacco Tobacco use type: Cigarette e-Cigarette/Vaping Use: Never Used Second Hand Smoke Exposure: No service: No Current occupational status: retired Cognitive needs: Yes Hearing needs: No Vision needs: Yes Questionnaire PHQ-9 Over the last 2 weeks, how often have you been bothered by any of the following problems? 1. Little interest or pleasure in doing things: not at all 2. Feeling down, depressed, or hopeless: not at all 3. Trouble falling or staying asleep, or sleeping too much: not at all 4. Feeling tired or having little energy: not at all 5. Poor appetite or overeating: not at all 6. Feeling bad about yourself - or that you are a failure or have let yourself or your family down: not at all 7. Trouble concentrating on things, such as reading the newspaper or watching television: not at all 8. Moving or speaking so slowly that other people could have noticed. Or the opposite - being so fidgety or restless that you have been moving around a lot more than usual: not at all 9. Thoughts that you would be better off or of hurting yourself in some way: not at all Total score: 0 Depression Screening Interpretation: Negative Depression Screening Done: Yes Source: Developed by Drs. Tyree Weems, Dennise Newton, Remigio Lau and colleagues, with an educational sri from [employer]. Thrive Questionnaire Date Thrive assessed: 07/14/24 I am a: Patient What is your living situation today?: I have a steady place to live Within the past 12 months, did the food you bought not last and you didn't have the money to get more?: Never true Within the past 12 months, did you worry whether your food would run out before you got money to buy more?: Never true Do you have trouble paying for medicines?: No Do you have trouble getting transportation to medical appointments?: No Do you have trouble paying your heating and electricity bill?: No Do you have trouble taking care of your child, family member or friend?: No Do you have trouble with day-to-day activities such as bathing, preparing meals, shopping, managing finances, etc.?: No Are you currently unemployed and looking for a job?: No Are you interested in more education?: No Please select the resources that you would like help with: None Currently or been in a relationship where the following occur: No concerns reported THRIVE Score: 0 AUDIT C Alcohol Use Questionnaire (AUDIT-C) 1. How often do you have a drink containing alcohol?: Monthly or less 2. How many drinks containing alcohol do you have on a typical day when you are drinking?: 1 or 2 3. How often do you have six or more drinks on one occasion?: Never Total Score: 1 RAJWINDER-7 AMB Questionnaire RAJWINDER-7 Date RAJWINDER - 7 assessed: 07/14/24 Feeling nervous, anxious, or on edge: 0 = Not at all Not being able to stop or control worryin = Not at all Worrying too much about different things: 0 = Not at all Trouble relaxin = Not at all Being so restless that it is hard to sit still: 0 = Not at all Becoming easily annoyed or irritable: 0 = Not at all Feeling afraid as if something awful might happen: 0 = Not at all Total RAJWINDER-7 score (0-4 normal; 5-9 mild; 10-14 moderate; 15-21 severe): 0 Source: Developed by Drs. Tyree Weems, Dennise Newton, Remigio Lau and colleagues, with an educational sri from [employer]. Review of Systems Const Denies chills, Denies headache(s) and Denies weight loss ENT Denies headache(s) Card Denies chest pain, Denies syncope, Denies irregular heart rhythm and Denies dyspnea Resp Denies chest congestion, Denies cough and Denies dyspnea GI Denies abdominal pain, Denies change in stool character, Denies nausea and Denies vomiting Musc Denies deformity and Denies joint swelling Neuro Denies syncope and Denies headache(s) Physical exam (Primary Care) Vital Signs: Last Vital Signs Temp 97.1 F 07/14/24 11:33 Pulse 51 07/14/24 11:33 BP 92/60 07/14/24 11:33 Pulse Ox 98 07/14/24 11:33 Oxygen Delivery Method Room Air 07/14/24 11:33 BMI result Body Mass Index 244.4 Tobacco/Smoking Status: Tobacco use Status Tobacco use date assessed 07/14/24 07/14/24 11:33 Patient Tobacco Use Status Never used Tobacco 07/14/24 11:33 Tobacco use type Cigarette 07/14/24 11:33 e-Cigarette/Vaping Use Never Used 07/14/24 11:33 PHQ-9: PHQ-9 Score PHQ-9: Total score 0 07/14/24 11:39 Depression Screening Interpretation: Negative Thrive Assessment: Date of Thrive Assessment Date Thrive assessed 07/14/24 07/14/24 11:33 Currently or been in a relationship where the following occur: No concerns reported Const General: cooperative, comfortable, no acute distress and alert Neck Neck: Yes no lymphadenopathy Thyroid: Thyroid normal Resp Effort & Inspection: normal respiratory effort Auscultation: clear to auscultation bilaterally Percussion: percussion normal Cardio Jugular venous distension: no JVD Palpation: normal PMI Rate: regular rate Rhythm: regular rhythm Heart sounds: S1 normal heart sound present and S2 normal heart sound present GI Inspection: Yes normal to inspection Palpation (GI): No hepatosplenomegaly present Skin General skin exam: no rashes or lesions noted Extrem General: Yes no clubbing, cyanosis or edema Coding Level of Care Code Est Pt Level 3 (82779) Diagnoses Diabetes mellitus with coincident hypertension E11.9; I10 Dementia F03.90 Dementia type: unspecified type Assessment & Plan Assessment & Plan (1) Diabetes mellitus with coincident hypertension: Code(s): E11.9 - Type 2 diabetes mellitus without complications; I10 - Essential (primary) hypertension Category: Medical Plan: stable; same rx (2) Dementia: Code(s): F03.90 - Unspecified dementia, unspecified severity, without behavioral disturbance, psychotic disturbance, mood disturbance, and anxiety Category: Medical Qualifiers: Dementia type: unspecified type Plan: stable; same rx
[2024-07-14 11:33] VITALS: BP 92/60; PULSE 51; TEMP 36.2; O2SAT 98; BMI 244.4
--- OUTSIDE RECORDS SUMMARY | 2024-07-14 12:00 | XMS_ITS | Clinical Summary ---
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 Name Role Phone CLAUDIA MELENDEZ Unavailable Unavail able RUBEN PT, KAYDEN Unavailable Unavailable REBEKAH RN, DAVON Unavailable Unavailable DORON DEALER DEVELOPMENT MANAGER, SHEBA Unavailable Unavailab le NIRAV OT, ROGER Unavailable Unavailable CONDINO JOHANA/DUKE, DEEJAY Unavailable Unav ailable Payers Payer Name Policy Type Policy Number Effective Date Expira tion Date MEDICARE.NGS.PDGM [id number] Problems Condition Name Condition Details Condition Category Status Onset Date Resolution Date Last Treatment Date Treating Clinician Comments DISPL TRIMALLEOL FX L LOW LEG, SUBS FOR CLOS FX W ROUTN HEAL Active 10-30 00:00: 00 UNSP DEMENTIA, UNSP SEVERITY, WITHOUT BEH/PSYCH/MO OD/ANX Active 06-25 00:00: 00 ESSENTIAL (PRIMARY) HYPERTENSION Active 06-25 00:00: 00 TYPE 2 DIABETES MELLITUS WITHOUT COMPLICATION S Active 06-25 00:00: 00 HYPERLIPIDEM IA, UNSPECIFIED Active 06-25 00:00: 00 HISTORY OF FALLING Active 06-25 00:00: 00 RETIREMENT (CURRENT) USE OF INSULIN Active 06-25 00:00: 00 ACQUIRED ABSENCE OF OTHER SPECIFIED PARTS OF DIGESTIVE TRACT Active 06-25 00:00: 00 Allergies, Adverse Reactions, Alerts Allergy Name Allergy Type Status Severity Reaction(s) Onset Date Inactive Date Treating Clinician Comments NO KNOWN ALLERGIES Propensity to adverse reactions Active 10-31 06:42: 57 Medications Ordered Medication Name Filled Medication Name Start Date Stop Date Current Medication? Ordering Clinician Indication Dosage Frequency Signature (SIG) Comments Components acetaminoph en 325 mg capsule 10-31 00:00: 00 11-15 23:59 :00 No [id number] PAIN 3 capsule EVERY 8 HOURS 3 capsule EVERY 8 HOURS (route: oral) Med Classific ation: Analgesic , Anti-infl ammatory or Antipyret ic citalopram 20 mg tablet 10-31 00:00: 00 11-15 23:59 :00 No [id number] DEPRESSION 1 tablet DAILY 1 tablet DAILY (route: oral) Med Classific ation: Central Nervous System Agents donepezil 5 mg tablet 10-31 00:00: 00 Yes [id number] DEMENTIA 1 tablet DAILY 1 tablet DAILY (route: oral) Med Classific ation: Cognitive Disorder Therapy enoxaparin 40 mg/0.4 mL subcutaneou s syringe 10-31 00:00: 00 11-15 23:59 :00 No [id number] BLOOD CLOT PREVENTION 0.4 mL DAILY 0.4 mL DAILY (route: subcutaneo us) Med Classific ation: Hematolog ical Agents Januvia 25 mg tablet 10-31 00:00: 00 11-15 23:59 :00 No [id number] DM2 1 tablet DAILY 1 tablet DAILY (route: oral) Med Classific ation: Endocrine losartan 50 mg tablet 10-31 00:00: 00 11-15 23:59 :00 No [id number] HTN 1 tablet DAILY 1 tablet DAILY (route: oral) Med Classific ation: Cardiovas cular Therapy Agents memantine 10 mg tablet 10-31 00:00: 00 Yes [id number] CONFUSION 1 tablet 2 TIMES DAILY 1 tablet 2 TIMES DAILY (route: oral) Med Classific ation: Cognitive Disorder Therapy metformin 1,000 mg tablet 10-31 00:00: 00 11-15 23:59 :00 No [id number] DM2 1 tablet 2 TIMES DAILY 1 tablet 2 TIMES DAILY (route: oral) Med Classific ation: Endocrine multivitami n with minerals tablet 10-31 00:00: 00 Yes [id number] SUPPLEMENT 1 tablet DAILY 1 tablet DAILY (route: oral) Med Classific ation: Electroly te Balance-N utritiona l Products Seroquel 25 mg tablet 10-31 00:00: 11-15 23:59 :00 No [id number] RESTLESSNES S 12.5 mg 2 TIMES DAILY 12.5 mg 2 TIMES DAILY (route: oral) Med Classific ation: Central Nervous System Agents Seroquel 50 mg tablet 10-31 00:00: 00 11-15 23:59 :00 No [id number] SLEEP 1 tablet BEDTIME 1 tablet BEDTIME (route: oral) Med Classific ation: Central Nervous System Agents simvastatin 20 mg tablet 10-31 00:00: 00 Yes [id number] HTN 1 tablet DAILY 1 tablet DAILY (route: oral) Med Classific ation: Cardiovas cular Therapy Agents tramadol 50 mg tablet 10-31 00:00: 00 Yes [id number] PAIN 0.5 tablet EVERY 6 HOURS 0.5 tablet EVERY 6 HOURS (route: oral) Med Classific ation: Analgesic , Anti-infl ammatory or Antipyret ic Vitamin D3 25 mcg (1,000 unit) capsule 10-31 00:00: 00 Yes [id number] BONE HEALTH 1 capsule DAILY 1 capsule DAILY (route: oral) Med Classific ation: Electroly te Balance-N utritiona l Products acetaminoph en 325 mg capsule 10-17 00:00: 00 Yes [id number] PAIN Per instruc tions EVERY 8 HOURS Per instructio ns EVERY 8 HOURS (route: oral) Med Classific ation: Analgesic , Anti-infl ammatory or Antipyret ic cholecalcif gisel (vitamin D3) 25 mcg (1,000 unit) capsule 06-25 00:00: 00 Yes [id number] SUPPLEMENT Per instruc tions DAILY Per instructio ns DAILY (route: oral) Med Classific ation: Electroly te Balance-N utritiona l Products citalopram 20 mg tablet 10-27 00:00: 00 11-15 23:59 :00 No [id number] MOOD Per instruc tions DAILY Per instructio ns DAILY (route: oral) Med Classific ation: Central Nervous System Agents donepezil 5 mg disintegrat ing tablet 10-17 00:00: 00 11-15 23:59 :00 No [id number] MEMORY Per instruc tions DAILY Per instructio ns DAILY (route: oral) Med Classific ation: Cognitive Disorder Therapy enoxaparin 40 mg/0.4 mL subcutaneou s syringe 10-17 00:00: 00 11-15 23:59 :00 No [id number] ANTICOAGULA TION Per instruc tions DAILY Per instructio ns DAILY (route: subcutaneo us) Med Classific ation: Hematolog ical Agents Januvia 25 mg tablet 10-17 00:00: 00 Yes [id number] DM Per instruc tions DAILY Per instructio ns DAILY (route: oral) Med Classific ation: Endocrine losartan 50 mg tablet 10-17 00:00: 00 Yes [id number] HTN Per instruc tions DAILY Per instructio ns DAILY (route: oral) Med Classific ation: Cardiovas cular Therapy Agents metformin 1,000 mg tablet 10-17 00:00: 00 Yes [id number] DM Per instruc tions 2 TIMES DAILY Per instructio ns 2 TIMES DAILY (route: oral) Med Classific ation: Endocrine Multivitami n 50 Plus tablet 10-17 00:00: 00 Yes [id number] SUPPLEMENT Per instruc tions DAILY Per instructio ns DAILY (route: oral) Med Classific ation: Electroly te Balance-N utritiona l Products Namenda 10 mg tablet 10-17 00:00: 00 Yes [id number] MEMORY Per instruc tions DAILY Per instructio ns DAILY (route: oral) Med Classific ation: Cognitive Disorder Therapy quetiapine 25 mg tablet 10-17 00:00: 00 11-15 23:59 :00 No [id number] MOOD Per instruc tions 2 TIMES DAILY Per instructio ns 2 TIMES DAILY (route: oral) Med Classific ation: Central Nervous System Agents quetiapine 50 mg tablet 10-17 00:00: 00 11-15 23:59 :00 No [id number] MOOD Per instruc tions DAILY Per instructio ns DAILY (route: oral) Med Classific ation: Central Nervous System Agents Senna Plus 8.6 mg-50 mg capsule 10-17 00:00: 00 Yes [id number] STOOL SOFTNER Per instruc tions DAILY Per instructio ns DAILY (route: oral) Med Classific ation: Gastroint estinal Therapy Agents simvastatin 20 mg tablet 10-17 00:00: 00 11-15 23:59 :00 No [id number] HLD Per instruc tions DAILY Per instructio ns DAILY (route: oral) Med Classific ation: Cardiovas cular Therapy Agents tramadol 50 mg tablet 10-17 00:00: 00 11-15 23:59 :00 No [id number] PAIN Per instruc tions EVERY 6 HOURS Per instructio ns EVERY 6 HOURS (route: oral) Med Classific ation: Analgesic , Anti-infl ammatory or Antipyret ic citalopram 40 mg tablet 11-15 00:00: 00 Yes [id number] MOOD 1 tablet DAILY 1 tablet DAILY (route: oral) Med Classific ation: Central Nervous System Agents trazodone 50 mg tablet 11-30 00:00: 00 Yes [id number] SLEEP AIDE Per instruc tions BEDTIME Per instructio ns BEDTIME (route: oral) Med Classific ation: Central Nervous System Agents Vital Signs Vital Name Observation Time Observation Value Commen ts Temperature 2022-12-18 10:40:00.000 97.7 [degF] Temperature 2022-12-05 13:44:00.000 97.5 [degF] Temperature 2022-11-30 11:36:00.000 97.8 [degF] Temperature 2022-11-24 13:36:00.000 98.6 [degF] Temperature 2022-11-21 12:43:00.000 97.7 [degF] Temperature 2022-11-15 12:44:00.000 97.7 [degF] Temperature 2022-11-15 10:06:00.000 97.3 [degF] Temperature 2022-11-08 11:19:00.000 97.2 [degF] Temperature 2022-11-07 16:38:00.000 97.8 [degF] Temperature 2022-11-02 10:08:00.000 97.4 [degF] Temperature 2022-10-31 11:25:00.000 97.3 [degF] Temperature 2022-10-31 10:15:00.000 98 [degF] Temperature 2022-10-30 14:04:00.000 97.5 [degF] Height 2022-10-30 14:04:00.000 66 [in_us] Pulse 2022-12-18 10:40:00.000 74 /min Pulse 2022-12-05 13:44:00.000 76 /min Pulse 2022-11-30 11:36:00.000 77 /min Pulse 2022-11-24 13:36:00.000 76 /min Pulse 2022-11-21 12:43:00.000 74 /min Pulse 2022-11-15 12:44:00.000 84 /min Pulse 2022-11-15 10:06:00.000 72 /min Pulse 2022-11-08 11:19:00.000 72 /min Pulse 2022-11-07 16:38:00.000 80 /min Pulse 2022-11-02 10:08:00.000 68 /min Pulse 2022-10-31 11:25:00.000 74 /min Pulse 2022-10-31 10:15:00.000 70 /min Pulse 2022-10-30 14:04:00.000 65 /min O2 Saturation (%) 2022-12-18 10:40:00.000 96 % O2 Saturation (%) 2022-12-05 13:44:00.000 97 % O2 Saturation (%) 2022-11-30 11:36:00.000 98 % O2 Saturation (%) 2022-11-24 13:36:00.000 95 % O2 Saturation (%) 2022-11-21 12:43:00.000 97 % O2 Saturation (%) 2022-11-15 12:44:00.000 97 % O2 Saturation (%) 2022-11-15 10:06:00.000 99 % O2 Saturation (%) 2022-11-08 11:19:00.000 99 % O2 Saturation (%) 2022-11-07 16:38:00.000 98 % O2 Saturation (%) 2022-11-02 10:08:00.000 98 % O2 Saturation (%) 2022-10-31 11:25:00.000 95 % O2 Saturation (%) 2022-10-31 10:15:00.000 95 % Respirations 2022-12-18 10:40:00.000 18 /min Respirations 2022-12-05 13:44:00.000 18 /min Respirations 2022-11-30 11:36:00.000 18 /min Respirations 2022-11-24 13:36:00.000 18 /min Respirations 2022-11-21 12:43:00.000 18 /min Respirations 2022-11-15 12:44:00.000 18 /min Respirations 2022-11-15 10:06:00.000 18 /min Respirations 2022-11-08 11:19:00.000 18 /min Respirations 2022-11-07 16:38:00.000 18 /min Respirations 2022-11-02 10:08:00.000 18 /min Respirations 2022-10-31 11:25:00.000 18 /min Respirations 2022-10-31 10:15:00.000 17 /min Respirations 2022-10-30 14:04:00.000 18 /min Weight (lbs) 2022-10-30 14:04:00.000 Systolic Blood Pressure 2022-12-18 10:40:00.000 109 mm [Hg] Systolic Blood Pressure 2022-12-05 13:44:00.000 100 mm [Hg] Systolic Blood Pressure 2022-11-30 11:36:00.000 106 mm [Hg] Systolic Blood Pressure 2022-11-24 13:36:00.000 106 mm [Hg] Systolic Blood Pressure 2022-11-21 12:43:00.000 100 mm [Hg] Systolic Blood Pressure 2022-11-15 12:44:00.000 102 mm [Hg] Systolic Blood Pressure 2022-11-15 10:06:00.000 118 mm [Hg] Systolic Blood Pressure 2022-11-08 11:19:00.000 114 mm [Hg] Systolic Blood Pressure 2022-11-07 16:38:00.000 120 mm [Hg] Systolic Blood Pressure 2022-11-02 10:08:00.000 118 mm [Hg] Systolic Blood Pressure 2022-10-31 11:25:00.000 126 mm [Hg] Systolic Blood Pressure 2022-10-31 10:15:00.000 98 mm[ Hg] Systolic Blood Pressure 2022-10-30 14:04:00.000 100 mm [Hg] Diastolic Blood Pressure 2022-12-18 10:40:00.000 70 mm [Hg] Diastolic Blood Pressure 2022-12-05 13:44:00.000 63 mm [Hg] Diastolic Blood Pressure 2022-11-30 11:36:00.000 64 mm [Hg] Diastolic Blood Pressure 2022-11-24 13:36:00.000 62 mm [Hg] Diastolic Blood Pressure 2022-11-21 12:43:00.000 80 mm [Hg] Diastolic Blood Pressure 2022-11-15 12:44:00.000 70 mm [Hg] Diastolic Blood Pressure 2022-11-15 10:06:00.000 72 mm [Hg] Diastolic Blood Pressure 2022-11-08 11:19:00.000 72 mm [Hg] Diastolic Blood Pressure 2022-11-07 16:38:00.000 80 mm [Hg] Diastolic Blood Pressure 2022-11-02 10:08:00.000 72 mm [Hg] Diastolic Blood Pressure 2022-10-31 11:25:00.000 72 mm [Hg] Diastolic Blood Pressure 2022-10-31 10:15:00.000 64 mm [Hg] Diastolic Blood Pressure 2022-10-30 14:04:00.000 60 mm [Hg] Plan of Treatment Planned Activity Planned Date Details Comments Future Scheduled Test SKILLED NU RSING TO EVALUATE FOR MED MANAGEMENT AND DISEASE PROCESS TEACHING [code = SNF TO EVALUATE FOR MED MANAGEMENT AND DISEASE PROCESS TEACHING ] Future Scheduled Test OCCUPATION AL THERAPIST TO EVALUATE FOR UE STRENGTH AND SAFETY WITH ADLS [code = OCCUPATIONAL THERAPIST TO EVALUATE FOR UE STRENGTH AND SAFETY WITH ADLS ] Future Scheduled Test OXYGEN SAT URATION (PT). NOTIFY MD IF 02SATS BELOW 90% AFTER 10 MIN OF REST. [code = OXYGEN SATURATION (PT). NOTIFY MD IF 02SATS BELOW 90% AFTER 10 MIN OF REST.] Future Scheduled Test PAIN MANAG EMENT (PT) [code = PAIN MANAGEMENT (PT) ] Future Scheduled Test PHYSICAL T HERAPY TO INSTRUCT PATIENT/CAREGIVER ON RISK FOR HOSPITALIZATION/EMERGENCY ROOM VISITS, TEACH SIGNS AND SYMPTOMS THAT PUT PATIENT AT RISK, WHEN TO NOTIFY NURSE/PHYSICIAN OF COMPLICATIONS/DECLINE, AND WHEN TO CALL 911. [code = PHYSICAL THERAPY TO INSTRUCT PATIENT/CAREGIVER ON RISK FOR HOSPITALIZATION/EMERGENCY ROOM VISITS, TEACH SIGNS AND SYMPTOMS THAT PUT PATIENT AT RISK, WHEN TO NOTIFY NURSE/PHYSICIAN OF COMPLICATIONS/DECLINE, AND WHEN TO CALL 911.] Future Scheduled Test AGENCY MAY PERFORM A RESUMPTION OF CARE VISIT FOLLOWING ANY HOSPITAL ADMISSION. PHYSICAL THERAPY TO EVALUATE, ASSESS AND MONITOR, PROVIDE SKILLED THERAPEUTIC INTERVENTION, ACTIVITY, EDUCATION, AND TRAINING TO ADDRESS: [code = AGENCY MAY PERFORM A RESUMPTION OF CARE VISIT FOLLOWING ANY HOSPITAL ADMISSION. PHYSICAL THERAPY TO EVALUATE, ASSESS AND MONITOR, PROVIDE SKILLED THERAPEUTIC INTERVENTION, ACTIVITY, EDUCATION, AND TRAINING TO ADDRESS:] Future Scheduled Test TRANSFER T RAINING (PT) [code = TRANSFER TRAINING (PT)] Future Scheduled Test GAIT TRAIN ING (PT) [code = GAIT TRAINING (PT)] Future Scheduled Test THERAPEUTI C EXERCISES (PT) [code = THERAPEUTIC EXERCISES (PT)] Future Scheduled Test IDENTIFY F ALL RISK FACTORS AND ESTABLISH HOME EXERCISE PROGRAM TO MINIMIZE FALL RISK. MAY TEACH THE PATIENT FLOOR RECOVERY WHEN CLINICALLY APPROPRIATE (PT) [code = IDENTIFY FALL RISK FACTORS AND ESTABLISH HOME EXERCISE PROGRAM TO MINIMIZE FALL RISK. MAY TEACH THE PATIENT FLOOR RECOVERY WHEN CLINICALLY APPROPRIATE (PT)] Future Scheduled Test DIABETES M ANAGEMENT (PT) [code = DIABETES MANAGEMENT (PT) ] Future Scheduled Test STAIR FREDDY MILADY (PT) [code = STAIR TRAINING (PT)] Future Scheduled Test PHYSICAL T HERAPY TO OBSERVE WOUND/INCISION AND/OR INTACT DRESSING ON LEFT ANKLE AND REPORT EARLY SIGNS AND SYMPTOMS OF WOUND DETERIORATION, COMPLICATIONS, OR INFECTION TO RN CLINICAL COD CLERK AND/OR PHYSICIAN. [code = PHYSICAL THERAPY TO OBSERVE WOUND/INCISION AND/OR INTACT DRESSING ON LEFT ANKLE AND REPORT EARLY SIGNS AND SYMPTOMS OF WOUND DETERIORATION, COMPLICATIONS, OR INFECTION TO RN CLINICAL COD CLERK AND/OR PHYSICIAN.] Future Scheduled Test AGENCY MAY PERFORM A RESUMPTION OF CARE VISIT FOLLOWING ANY HOSPITAL ADMISSION. OCCUPATIONAL THERAPY TO EVALUATE, ASSESS, AND MONITOR, PROVIDE SKILLED THERAPEUTIC INTERVENTION, ACTIVITY, EDUCATION, AND TRAINING TO ADDRESS; FALL PREVENTION, CAREGIVER EDUCATION, DECLINE IN ADLS AND FUNCTIONAL MOBILITY. BATHING/SHOWERING (OT) TOILETING (OT) DRESSING (OT) OXYGEN SATURATION (OT); NOTIFY MD IF O2 SATS BELOW 90% AFTER 10 MIN OF REST FALL REDUCTION (OT) PAIN MANAGEMENT (OT) [code = AGENCY MAY PERFORM A RESUMPTION OF CARE VISIT FOLLOWING ANY HOSPITAL ADMISSION. OCCUPATIONAL THERAPY TO EVALUATE, ASSESS, AND MONITOR, PROVIDE SKILLED THERAPEUTIC INTERVENTION, ACTIVITY, EDUCATION, AND TRAINING TO ADDRESS; FALL PREVENTION, CAREGIVER EDUCATION, DECLINE IN ADLS AND FUNCTIONAL MOBILITY. BATHING/SHOWERING (OT) TOILETING (OT) DRESSING (OT) OXYGEN SATURATION (OT); NOTIFY MD IF O2 SATS BELOW 90% AFTER 10 MIN OF REST FALL REDUCTION (OT) PAIN MANAGEMENT (OT) ] Goal 2022-12-18 Patient Goal - BE INDEPENDENT MOVING AROUND POSSIBLE PER Goal Provider Goal - Goal Provider Goal - Goal Provider Goal - PATIENT WILL MAINTAIN OXYGEN SATURATION WITHIN PHYSICIAN ORDERED PARAMETERS THROUGHOUT EPISODE OF CARE Goal Provider Goal - PT GOAL: PATIENT/CAREGIVER WILL VERBALIZE UNDERSTANDING OF PAIN MANAGEMENT BY END OF EPISODE. Goal Provider Goal - PATIENT/CAREGIVER WILL VERBALIZE UNDERSTANDING OF SIGNS AND SYMPTOMS THAT PUT THE PATIENT AT RISK FOR HOSPITALIZATION /EMERGENCY ROOM VISITS, WHEN TO NOTIFY NURSE/PHYSICIAN OF COMPLICATIONS/DECLINE AND WHEN TO CALL 911. Goal Provider Goal - Goal Provider Goal - PT STG: PATIENT WILL DEMONSTRATE PROPER HAND PLACEMENT AND POSITIONING IN PREP FOR SIT TO STAND TRANSFERS WITHIN 3 WEEKS PT LTG: PATIENT WILL DEMONSTRATE IMPROVED TRANSFERS FROM MAX ASSIST TO INDEPENDENT WITH UE ASSIST WITHIN 9 WEEKS Goal Provider Goal - PT STG: PATIENT WILL DEMONSTRATE ABILITY TO SAFELY PARTICIPATE IN GAIT TRAINING ONCE WEIGHT BEARING RESTRICTIONS ARE LIFTED WITHIN 4 WEEKS PT LTG: PATIENT WILL DEMONSTRATE IMPROVED AMBULATION FROM UNABLE TO INDEPENDENT WITH LAD WITHIN 9 WEEKS Goal Provider Goal - PT STG: PATIENT/CAREGIVER WILL DEMONSTRATE INDEPENDENCE WITH LOWER EXTREMITY HOME EXERCISE PROGRAM WITHIN 4 WEEKS PT LTG: PATIENT WILL DEMONSTRATE INCREASED STRENGTH OF LEFT LE FROM 3-/5 TO 4+/5 WITHIN 9 WEEKS IN ORDER TO IMPROVE SAFETY AND STABILITY WITH GAIT AND STAIRS PT LTG: PATIENT WILL DEMONSTRATE INCREASED ROM OF LEFT ANKLE DF FROM UNKNOWN TO 10 DEGREES WITHIN 9 WEEKS IN ORDER TO ENSURE NORMAL GAIT PATTERN Goal Provider Goal - PATIENT/CAREGIVER WILL DEMONSTRATE ADHERENCE TO FALL REDUCTION SELF MANAGEMENT TO MINIMIZE FALL RISK BY DISCHARGE. Goal Provider Goal - PATIENTS BLOOD SUGAR WILL REMAIN WELL CONTROLLED THROUGHOUT EPISODE OF CARE AND PATIENT WILL NOT HAVE ANY SIGNS OF SKIN BREAKDOWN OR COMPLICATIONS. Goal Provider Goal - PT STG: PATIENT WILL DEMONSTRATE ABILITY TO SAFELY PARTICIPATE IN STAIR TRAINING WHEN WEIGHT BEARING RESTRICTIONS ARE LIFTED WITHIN 4 WEEKS PT LTG: PATIENT WILL DEMONSTRATE IMPROVED ABILITY TO SAFELY NEGOTIATE STAIRS FROM UNABLE TO INDEPENDENT WITH RAIL WITHIN 9 WEEKS Goal Provider Goal - THE PATIENT WILL NOT DEMONSTRATE ANY WOUND COMPLICATIONS DURING THE EPISODE OF CARE. Goal Provider Goal - OT STG: PATIENT WILL DEMONSTRATE IMPROVED BATHING WITH MOD ASSIST WITHIN 2 WEEKS. OT LTG: PATIENT WILL DEMONSTRATE IMPROVED ABILITY TO PERFORM BATHING/SHOWERING FROM MAX ASSIST TO SUPERVISION WITHIN 8 WEEKS. OT STG: PATIENT WILL DEMONSTRATE IMPROVED SHOWER TRANSFERS WITH MOD ASSIST WITHIN 2 WEEKS. OT LTG: PATIENT WILL DEMONSTRATE IMPROVED ABILITY TO PERFORM BATH/SHOWER TRANSFER FROM MAX ASSIST TO SBA WITHIN 8 WEEKS. OT STG: PATIENT WILL DEMONSTRATE IMPROVED TOILETING MANAGEMENT WITH MAX ASSIST WITHIN 2 WEEKS. OT LTG: PATIENT WILL DEMONSTRATE IMPROVED ABILITY TO PERFORM TOILET HYGIENE FROM DEPENDENT TO INDEPENDENT WITHIN 8 WEEKS. OT STG: PATIENT WILL DEMONSTRATE IMPROVED TOILET TRANSFERS WITH MIN ASSIST WITHIN 2 WEEKS. OT LTG: PATIENT WILL DEMONSTRATE IMPROVED ABILITY TO PERFORM TOILET TRANSFER FROM MOD ASSIST TO INDEPENDENT WITHIN 8 WEEKS. OT STG: PATIENT WILL DEMONSTRATE IMPROVED LB DRESSING WITH MOD ASSIST WITHIN 2 WEEKS. OT LTG: PATIENT WILL DEMONSTRATE IMPROVED ABILITY TO PERFORM LOWER BODY DRESSING INCLUDING ITEM RETRIEVAL FROM MAX ASSIST TO INDEPENDENT WITHIN 8 WEEKS. PATIENT WILL MAINTAIN OXYGEN SATURATION WITHIN PHYSICIAN ORDERED PARAMETERS THROUGHOUT THE EPISODE OF CARE. PATIENT/CAREGIVER WILL BE ABLE TO IMPLEMENT OCCUPATIONAL THERAPY EDUCATION RECOMMENDATIONS SPECIFIC TO FALL REDUCTION FOR IMPROVED ADL/IADL COMPLETION AND HOME SAFETY BY END OF EPISODE. PATIENT WILL VERBALIZE UNDERSTANDING OF PAIN MANAGEMENT TECHNIQUES BY END OF EPISODE. Reason for Visit MINIMUM ASSIST WITH TRANSFER/AMBULATION/ADLS Encounters Start Date/Time End Date/Time Encounter Type Admission Type Attending [facility] Care Facility Care Department Encounter ID Discharge Date Discharge Status Discharge Condition Discharge Reason Percent Goals Met 2022-10-30 00:00:00 2022-12-18 00:00:00 Outpatient NEW ADMISSION KAYDEN MIRANDA [facility] [id number] 2022-12-18 00:00:00 DISCHARGE TO HOME OR SELF CARE MINIMUM ASSIST WITH TRANSFER/A MBULATION/ ADLS HH ONLY - PER FAMILY REQUEST 44.23
--- OUTSIDE RECORDS SUMMARY | 2024-07-14 12:00 | XMS_ITS | Clinical Summary ---
Author Organization Unknown Care Team Providers Care Customer Advocacy Manager Name Role Phone CLAUDIA MELENDEZ Unavailable Unavail able RUBEN PT, KAYDEN Unavailable Unavailable REBEKAH RN, DAVON Unavailable Unavailable DORON GSE MECHANIC, SHEBA Unavailable Unavailab le NIRAV OT, ROGER Unavailable Unavailable CONDINO JOHANA/DUKE, DEEJAY Unavailable Unav ailable Payers Payer Name Policy Type Policy Number Effective Date Expira tion Date MEDICARE.NGS.PDGM [id number] Problems Condition Name Condition Details Condition Category [...] HISTORY OF FALLING Active 06-25 00:00: 00 PRISON (CURRENT) USE OF INSULIN Active 06-25 00:00: [...] 10-31 00:00: 00 11-15 23:59 :00 No [id number] PAIN 3 capsule EVERY 8 HOURS 3 capsule EVERY 8 HOURS (route: oral) Med Classific ation: Analgesic , Anti-infl ammatory or Antipyret ic citalopram 20 mg tablet 10-31 00:00: 00 11-15 23:59 :00 No [id number] DEPRESSION 1 tablet DAILY 1 tablet DAILY (route: oral) Med Classific ation: Central Nervous System Agents donepezil 5 mg tablet 10-31 00:00: 00 Yes [id number] DEMENTIA 1 tablet DAILY 1 tablet DAILY (route: oral) Med Classific ation: Cognitive Disorder Therapy enoxaparin 40 mg/0.4 mL subcutaneou s syringe 10-31 00:00: 00 11-15 23:59 :00 No [id number] BLOOD CLOT PREVENTION 0.4 mL DAILY 0.4 mL DAILY (route: subcutaneo us) Med Classific ation: Hematolog ical Agents Januvia 25 mg tablet 10-31 00:00: 00 11-15 23:59 :00 No [id number] DM2 1 tablet DAILY 1 tablet DAILY (route: oral) Med Classific ation: Endocrine losartan 50 mg tablet 10-31 00:00: 00 11-15 23:59 :00 No [id number] HTN 1 tablet DAILY 1 tablet DAILY (route: oral) Med Classific ation: Cardiovas cular Therapy Agents memantine 10 mg tablet 10-31 00:00: 00 Yes [id number] CONFUSION 1 tablet 2 TIMES DAILY 1 tablet 2 TIMES DAILY (route: oral) Med Classific ation: Cognitive Disorder Therapy metformin 1,000 mg tablet 10-31 00:00: 00 11-15 23:59 :00 No [id number] DM2 1 tablet 2 TIMES DAILY 1 tablet 2 TIMES DAILY (route: oral) Med Classific ation: Endocrine multivitami n with minerals tablet 10-31 00:00: 00 Yes [id number] SUPPLEMENT 1 tablet DAILY 1 tablet DAILY (route: oral) Med Classific ation: Electroly te Balance-N utritiona l Products Seroquel 25 mg tablet 10-31 00:00: 11-15 23:59 :00 No [id number] RESTLESSNES S 12.5 mg 2 TIMES DAILY 12.5 mg 2 TIMES DAILY (route: oral) Med Classific ation: Central Nervous System Agents Seroquel 50 mg tablet 10-31 00:00: 00 11-15 23:59 :00 No [id number] SLEEP 1 tablet BEDTIME 1 tablet BEDTIME (route: oral) Med Classific ation: Central Nervous System Agents simvastatin 20 mg tablet 10-31 00:00: 00 Yes [id number] HTN 1 tablet DAILY 1 tablet DAILY (route: oral) Med Classific ation: Cardiovas cular Therapy Agents tramadol 50 mg tablet 10-31 00:00: 00 Yes [id number] PAIN 0.5 tablet EVERY 6 HOURS 0.5 tablet EVERY 6 HOURS (route: oral) Med Classific ation: Analgesic , Anti-infl ammatory or Antipyret ic Vitamin D3 25 mcg (1,000 unit) capsule 10-31 00:00: 00 Yes [id number] BONE HEALTH 1 capsule DAILY 1 capsule DAILY (route: oral) Med Classific ation: Electroly te Balance-N utritiona l Products acetaminoph en 325 mg capsule 10-17 00:00: 00 Yes [id number] PAIN Per instruc tions EVERY 8 HOURS Per instructio ns EVERY 8 HOURS (route: oral) Med Classific ation: Analgesic , Anti-infl ammatory or Antipyret ic cholecalcif gisel (vitamin D3) 25 mcg (1,000 unit) capsule 06-25 00:00: 00 Yes [id number] SUPPLEMENT Per instruc tions DAILY Per instructio ns DAILY (route: oral) Med Classific ation: Electroly te Balance-N utritiona l Products citalopram 20 mg tablet 10-27 00:00: 00 11-15 23:59 :00 No [id number] MOOD Per instruc tions DAILY Per instructio ns DAILY (route: oral) Med Classific ation: Central Nervous System Agents donepezil 5 mg disintegrat ing tablet 10-17 00:00: 00 11-15 23:59 :00 No [id number] MEMORY Per instruc tions DAILY Per instructio ns DAILY (route: oral) Med Classific ation: Cognitive Disorder Therapy enoxaparin 40 mg/0.4 mL subcutaneou s syringe 10-17 00:00: 00 11-15 23:59 :00 No [id number] ANTICOAGULA TION Per instruc tions DAILY Per instructio ns DAILY (route: subcutaneo us) Med Classific ation: Hematolog ical Agents Januvia 25 mg tablet 10-17 00:00: 00 Yes [id number] DM Per instruc tions DAILY Per instructio ns DAILY (route: oral) Med Classific ation: Endocrine losartan 50 mg tablet 10-17 00:00: 00 Yes [id number] HTN Per instruc tions DAILY Per instructio ns DAILY (route: oral) Med Classific ation: Cardiovas cular Therapy Agents metformin 1,000 mg tablet 10-17 00:00: 00 Yes [id number] DM Per instruc tions 2 TIMES DAILY Per instructio ns 2 TIMES DAILY (route: oral) Med Classific ation: Endocrine Multivitami n 50 Plus tablet 10-17 00:00: 00 Yes [id number] SUPPLEMENT Per instruc tions DAILY Per instructio ns DAILY (route: oral) Med Classific ation: Electroly te Balance-N utritiona l Products Namenda 10 mg tablet 10-17 00:00: 00 Yes [id number] MEMORY Per instruc tions DAILY Per instructio ns DAILY (route: oral) Med Classific ation: Cognitive Disorder Therapy quetiapine 25 mg tablet 10-17 00:00: 00 11-15 23:59 :00 No [id number] MOOD Per instruc tions 2 TIMES DAILY Per instructio ns 2 TIMES DAILY (route: oral) Med Classific ation: Central Nervous System Agents quetiapine 50 mg tablet 10-17 00:00: 00 11-15 23:59 :00 No [id number] MOOD Per instruc tions DAILY Per instructio ns DAILY (route: oral) Med Classific ation: Central Nervous System Agents Senna Plus 8.6 mg-50 mg capsule 10-17 00:00: 00 Yes [id number] STOOL SOFTNER Per instruc tions DAILY Per instructio ns DAILY (route: oral) Med Classific ation: Gastroint estinal Therapy Agents simvastatin 20 mg tablet 10-17 00:00: 00 11-15 23:59 :00 No [id number] HLD Per instruc tions DAILY Per instructio ns DAILY (route: oral) Med Classific ation: Cardiovas cular Therapy Agents tramadol 50 mg tablet 10-17 00:00: 00 11-15 23:59 :00 No [id number] PAIN Per instruc tions EVERY 6 HOURS Per instructio ns EVERY 6 HOURS (route: oral) Med Classific ation: Analgesic , Anti-infl ammatory or Antipyret ic citalopram 40 mg tablet 11-15 00:00: 00 Yes [id number] MOOD 1 tablet DAILY 1 tablet DAILY (route: oral) Med Classific ation: Central Nervous System Agents trazodone 50 mg tablet 11-30 00:00: 00 Yes [id number] SLEEP AIDE Per instruc tions BEDTIME Per [...] MANAGEMENT AND DISEASE PROCESS TEACHING [code = NURSING HOME TO EVALUATE FOR MED MANAGEMENT AND DISEASE [...] DETERIORATION, COMPLICATIONS, OR INFECTION TO RN CLINICAL CARBON PAPER COATING MACHINE SETTER AND/OR PHYSICIAN. [code = PHYSICAL THERAPY TO OBSERVE WOUND/INCISION AND/OR INTACT DRESSING ON LEFT ANKLE AND REPORT EARLY SIGNS AND SYMPTOMS OF WOUND DETERIORATION, COMPLICATIONS, OR INFECTION TO RN CLINICAL CARBON PAPER COATING MACHINE SETTER AND/OR PHYSICIAN.] Future Scheduled Test AGENCY MAY [...] End Date/Time Encounter Type Admission Type Attending [facility] Care Facility Care Department Encounter ID Discharge Date Discharge Status Discharge Condition Discharge Reason Percent Goals Met 2022-10-30 00:00:00 2022-12-18 00:00:00 Outpatient NEW ADMISSION KAYDEN MIRANDA [facility] [id number] 2022-12-18 00:00:00 DISCHARGE TO HOME OR SELF CARE MINIMUM ASSIST WITH TRANSFER/A MBULATION/ [facility] ONLY - PER FAMILY REQUEST 44.23
== END 2024-07-14 11:55 | disposition home or self-care (01) ==
PROVIDERS: PCP Internal Medicine; Visit Provider Internal Medicine
DX: E11.9 Type 2 diabetes mellitus without complications (principal); I10 Essential (primary) hypertension; F03.90 Unspecified dementia, unspecified severity, without behavioral disturbance, psychotic disturbance, mood disturbance, and anxiety

== ENCOUNTER → 2024-07-14 11:26 | Outpatient (BNVA) | payer MEDICARE, MEDICAID, SELFPAY | PROVIDERS: PCP Internal Medicine; Visit Provider Internal Medicine | DX: E11.9 Type 2 diabetes mellitus without complications (principal); I10 Essential (primary) hypertension; F03.90 Unspecified dementia, unspecified severity, without behavioral disturbance, psychotic disturbance, mood disturbance, and anxiety | CPT/HCPCS: 99212 ==

== ENCOUNTER 2024-08-13 09:52 | Outpatient (AMB) | payer MEDICARE, MEDICAID, SELFPAY ==
--- NOTE | 2024-08-13 09:54 | A.OFFPC_ITS ---
Vital Signs 08/13/24 09:55 Height 5 ft 6 in Weight 145 lb 6 oz BMI 23.5 BP 110/66 Blood Pressure Location Lt brachial Position Sitting Temp 96.8 F Temp Source Temporal Artery Scan Intake Visit Reasons: weight loss/not eatting Intake Note: Patient is here to follow up on Weight loss, not eating, sleepiness. Veterinary Laboratory Diagnostician Required: No Director Of Pulmonary Unit: Present Accompanied by: Spouse Allergies No Known Allergies [No Known Allergies*] Allergy (Verified 08/13/24 09:55) Medication List - Last Reconciled 08/13/24 by Franky Martino MD acetaminophen 975 mg PO Q8H PRN blood sugar diagnostic ([employer] Verio test strips) As directed cefuroxime axetil 250 mg PO BID cholecalciferol (vitamin D3) 50 mcg PO DAILY citalopram 40 mg PO DAILY donepezil 5 mg PO BEDTIME losartan 50 mg PO DAILY memantine 10 mg PO BID metformin 1,000 mg (2 x 500 mg) PO BID kspaznjt-ajoi-AO-calcium-mins 9 mg iron-400 mcg (Therapeutic-M) 1 tab PO DAILY sennosides-docusate sodium 8.6-50 mg (Senexon-S) 2 tabs PO BEDTIME simvastatin 20 mg PO BEDTIME sitagliptin phosphate (Januvia) 25 mg PO DAILY sulfamethoxazole-trimethoprim 800-160 mg (Bactrim DS) 1 tab PO BID trazodone 25 mg (1/2 x 50 mg) PO BEDTIME PRN Tobacco use date assessed: 08/13/24 Fall risk assessment: No Falls in past year Last assessed Fall Risk: 08/13/24 Dental Screening Dental Screen Date: 07/14/24 HPI weight loss/not eatting HPI Details poor PO intake for solids; weight loss;drinking better PFSH Medical History Hyperlipidemia associated with type 2 diabetes mellitus Post-menopausal Eye exam, routine Screening for breast cancer Screening for colon cancer Screening for diabetes mellitus Hyperlipidemia Hypertension Surgical History History of ankle surgery History of colonoscopy History of partial hysterectomy History of cholecystectomy History of tonsillectomy Family History Father Alcohol abuse Mother Liver problem Family/Other Alcoholism Social History Household Members: Spouse Housing: House Do you presently have visiting nurse or other home services: No Alcohol intake: never Comment: 1:1 sitter Patient Tobacco Use Status: Never used Tobacco Tobacco use type: Cigarette e-Cigarette/Vaping Use: Never Used Second Hand Smoke Exposure: No service: No Current occupational status: retired Cognitive needs: Yes Hearing needs: No Vision needs: Yes Questionnaire Thrive Questionnaire Date Thrive assessed: 07/14/24 RAJWINDER-7 AMB Questionnaire RAJWINDER-7 Date RAJWINDER - 7 assessed: 07/14/24 Source: Developed by Drs. Tyree Weems, Dennise Newton, Remigio Lau and colleagues, with an educational sri from [employer]. Review of Systems Const Denies chills, Denies headache(s) and Denies weight loss ENT Denies headache(s) Card Denies chest pain, Denies syncope, Denies irregular heart rhythm and Denies dyspnea Resp Denies chest congestion, Denies cough and Denies dyspnea GI Denies abdominal pain, Denies change in stool character, Denies nausea and Denies vomiting Musc Denies deformity and Denies joint swelling Neuro Denies syncope and Denies headache(s) Physical exam (Primary Care) Vital Signs: Last Vital Signs Temp 96.8 F 08/13/24 09:55 BP 110/66 08/13/24 09:55 BMI result Body Mass Index 23.5 Tobacco/Smoking Status: Tobacco use Status Tobacco use date assessed 08/13/24 08/13/24 10:00 Patient Tobacco Use Status Never used Tobacco 08/13/24 10:00 Tobacco use type Cigarette 08/13/24 10:00 e-Cigarette/Vaping Use Never Used 08/13/24 10:00 Thrive Assessment: Date of Thrive Assessment Date Thrive assessed 07/14/24 08/13/24 10:00 Const General: cooperative, comfortable, no acute distress and alert Neck Neck: Yes no lymphadenopathy Thyroid: Thyroid normal Resp Effort & Inspection: normal respiratory effort Auscultation: clear to auscultation bilaterally Percussion: percussion normal Cardio Jugular venous distension: no JVD Palpation: normal PMI Rate: regular rate Rhythm: regular rhythm Heart sounds: S1 normal heart sound present and S2 normal heart sound present GI Inspection: Yes normal to inspection Palpation (GI): No hepatosplenomegaly present Skin General skin exam: no rashes or lesions noted Extrem General: Yes no clubbing, cyanosis or edema Coding Level of Care Code Est Pt Level 3 (07033) Diagnoses Dementia F03.90 Dementia type: unspecified type Assessment & Plan Assessment & Plan (1) Dementia: Code(s): F03.90 - Unspecified dementia, unspecified severity, without behavioral disturbance, psychotic disturbance, mood disturbance, and anxiety Category: Medical Qualifiers: Dementia type: unspecified type Plan: focus on liquids for nutrition Orders: Orders Complete Blood Count Auto Diff Today Z13.0 - Encounter for screening for diseases of the blood and blood-forming organs and certain disorders involving the immune mechanism Comprehensive [place]. Panel Fast Today Z13.9 - Encounter for screening, unspecified
[2024-08-13 09:55] VITALS: BP 110/66; TEMP 36; BMI 23.5
--- OUTSIDE RECORDS SUMMARY | 2024-08-13 10:16 | XMS_ITS | Patient Health Record ---
Author Organization [facility] Address [address] [address] Support Name Relationship Address Phone ELOISA SHIRLEY Guarantor Unknown [phone] Reason For Referral No Information Medications Medication SIG (Take, Route, Frequency, Duration) Notes Start Date End Date Status Vitamin D3 1000 IU ORAL daily for -3 [facility] 11/29/2011 Active Simvastatin 20MG 1 ORAL daily for -3 [facility] 01/15/2012 Active Lisinopril 10MG 1 ORAL daily for -3 [facility] 07/12/2011 Active Citalopram Hydrobromide 10MG 1 ORAL daily for -3 [facility] 11/29/2011 Active Aspirin EC 81MG 1 ORAL daily for -3 [facility] 04/04/2011 Active Aricept 10MG 1 ORAL at bedtime for -3 [facility] 09/14/2011 Active PriLOSEC OTC 20MG 1 ORAL daily for -3 [facility] 04/04/2011 Active Namenda 5MG 1 ORAL twice daily f or -3 [facility] 11/29/2011 Active Problems Problem Type SNOMED Code ICD Code Onset Dates Problem Status W/U Status Risk Notes Problem Type II diabetes mellitus without complication (375953730) Diabetes mellitus without mention of complication, type II or unspecified type, not stated as uncontrolled (250.00) Active confirmed Major Problem Hyperlipidemia (23720631) Other and unspecified hyperlipidemia (272.4) Active confirmed Major Problem Depressive disorder (39366530) Depressive disorder, not elsewhere classified (311) Active confirmed Major Problem Mitral valve disorder (66730288) Mitral valve disorders (424.0) Active confirmed Major Problem Heart disease (94279913) Unspecified heart disease (429.9) Active confirmed Diag Problem Irritable bowel syndrome (19852757) Irritable bowel syndrome (564.1) Active confirmed Major Problem Dizziness and giddiness (701745615) Dizziness and giddiness (780.4) Active confirmed Diag Problem Headache (27861080) Headache (784.0) Active confirmed Diag Problem Cough (56158095) Cough (786.2) Active confirmed Diag Problem Allergy (283440991) Allergy, unspecified not elsewhere classified (995.3) Active confirmed Diag Plan Of Treatment No Information Insurance Providers Payer Name Payer Address Payer Phone Subscriber Number Group Number Insured Name Patient Relationship to Insured Coverage Start Date Coverage End Date [employer] [address] [place] [address] [id number] ELOISA SHIRLEY Self - patient is the insured
--- OUTSIDE RECORDS SUMMARY | 2024-08-13 10:16 | XMS_ITS | Clinical Summary ---
Author Organization [facility] Address [address] [place] [address] Care Team Providers Care Die Keeper Name Role Phone Pcp, No Primary Care Provider Unavailabl e Allergies No known active allergies Medications Medication Sig Dispensed Refills Start Date End Date Status losartan (COZAAR) 50 MG tablet Take 1 tablet (50 mg total) by mouth daily. 09/11/2022 Active memantine (NAMENDA) 10 MG tablet Take 1 tablet (10 mg total) by mouth 2 (two) times a day. 09/04/2022 Active simvastatin (ZOCOR) 20 MG tablet Take 1 tablet (20 mg total) by mouth daily. 08/26/2022 Active acetaminophen (TYLENOL) 325 MG tabletIndications:Lef t trimalleolar fracture Take 3 tablets (975 mg total) by mouth every 8 (eight) hours around the clock. 150 tablet 10/26/2022 Active citalopram (CeleXA) 20 MG tabletIndications:Acu te encephalopathy Take 1 tablet (20 mg total) by mouth daily. Do not start before October 27, 2022. 30 tablet 10/27/2022 Active donepezil (ARICEPT) 5 MG tabletIndications:Acu te encephalopathy Take 1 tablet (5 mg total) by mouth nightly. 30 tablet 10/26/2022 Active senna-docusate (SENNA-S) 8.6-50 MGIndications:Left trimalleolar fracture Take 2 tablets by mouth nightly. 60 tablet 10/26/2022 Active enoxaparin (LOVENOX) 40 MG/0.4ML injectionIndications: Prophylaxis of Venous Thromboembolism Inject 0.4 mL (40 mg total) under the skin every 24 hours around the clock. 4.8 mL 10/26/2022 Active multivitamin with minerals Tab tabletIndications:Acu te encephalopathy Take 1 tablet by mouth daily. Do not start before October 27, 2022. 30 tablet 10/27/2022 Active sitaGLIPtin (JANUVIA) 25 MG tabletIndications:Acu te encephalopathy Take 1 tablet (25 mg total) by mouth daily. 30 tablet 10/26/2022 Active cholecalciferol (CHOLECALCIFEROL) 25 MCG (1000 UT) tabletIndications:Lef t trimalleolar fracture Take 2 tablets (2,000 Units total) by mouth daily. 60 tablet 10/26/2022 Active QUEtiapine (SEROquel) 25 MG tabletIndications:Acu te encephalopathy Take 0.5 tablets (12.5 mg total) by mouth 2 (two) times a day as needed (use if restless). 30 tablet 10/26/2022 Active traMADol (ULTRAM) 50 MG tabletIndications:Acu te encephalopathy Take 0.5 tablets (25 mg total) by mouth 4 times daily (every 6 hours) as needed for severe pain or moderate pain. 20 tablet 10/26/2022 Active Alcohol Swabs 70 % PadsIndications:Acute encephalopathy Use as directed. 100 Pad(s) 10/26/2022 Active OneTouch Verio stripIndications:Acut e encephalopathy Test blood glucose 3 times Daily or as instructed. 100 test strip 10/26/2022 Active OneTouch Delica Lancets 30G Misc lancetIndications:Acu te encephalopathy Test blood glucose 3 times Daily or as instructed. 100 lancet(s) 10/26/2022 Active metFORMIN (GLUCOPHAGE) 500 MG tabletIndications:Typ e 2 diabetes mellitus without complication, without long-term current use of insulin (HCC) Take 2 tablets (1,000 mg total) by mouth 2 (two) times a day with meals. 120 tablet 10/27/2022 Active Alcohol Swabs 70 % PadsIndications:Type 2 diabetes mellitus without complication, without long-term current use of insulin (HCC) Use as directed. 100 Pad(s) 10/30/2022 Active OneTouch Ultra test stripIndications:Type 2 diabetes mellitus without complication, without long-term current use of insulin (HCC) Test blood glucose 3 times Daily or as instructed. Dgn: diabetes mellitus type 2 E11.9 100 test strip 10/30/2022 Active OneTouch Delica Lancets 30G Misc lancetIndications:Typ e 2 diabetes mellitus without complication, without long-term current use of insulin (HCC) Test blood glucose 3 times Daily or as instructed. 100 lancet(s) 10/30/2022 Active Blood Glucose Monitoring Suppl (ONE TOUCH ULTRA 2 DEVICE KIT) w/Device KitIndications:Type 2 diabetes mellitus without complication, without long-term current use of insulin (HCC) Use as directed.Dgn: diabetes mellitus type 2 E11.9 1 kit 10/30/2022 Active Alcohol Swabs 70 % PadsIndications:Type 2 diabetes mellitus without complication, without long-term current use of insulin (HCC) Use as directed. 100 Pad(s) 10/30/2022 Active Accu-Chek Guide test stripIndications:Type 2 diabetes mellitus without complication, without long-term current use of insulin (HCC) Use as instructed 100 test strip 10/30/2022 Active Accu-Chek FastClix Lancets MiscIndications:Type 2 diabetes mellitus without complication, without long-term current use of insulin (HCC) Use 3 times daily before meals Dgn: diabetes mellitus type 2 E11.9 102 lancet(s) 10/30/2022 Active Active Problems Problem Noted Date Diagnosed Date Acute encephalopathy 10/20/2022 Type 2 diabetes mellitus wit hout complication, without long-term current use of insulin 10/20/2022 Closed bimalleolar fracture of left ankle 2022 Overview (10/17/2022): Added automatically from request for surgery [id number] Trimalleolar fracture of left ankle 10/09/2022 Dementia 10/09/2022 HTN (hypertension) 10/09/2022 KATE (acute kidney injury) 10/09/2022 Social History Tobacco Use Types Packs/Day Years Used Date Smoking Tobacco: Never Smokeless Tobacco: Never Alcohol Use Standard Drinks/Week Comments Not Currently 0 (1 standard drink = 0.6 oz pur e alcohol) AUDIT-C Answer Date Recorded Q1: How often do you have a drink containing alcohol? Never 10/12/2022 Q2: How many drinks containi ng alcohol do you have on a typical day when you are drinking? Patient does not drink Q3: How often do you have si x or more drinks on one occasion? Never 10/12/2022 Sex and Gender Information Value Date Recorded Sex Assigned at Female 10/08/2022 9:14 PM EDT Gender Identity Female 10/08/2022 9:14 PM EDT Sexual Orientation Heterosexual (straight) 10/08 9:14 PM EDT Last Filed Vital Signs Vital Sign Reading Time Taken Comments Blood Pressure 153/72 10/26/2022 8:05 AM EDT Pulse 81 10/26/2022 8:05 AM EDT Temperature 36.1 ??C (96.9 ??F) 10/26/2022 5:39 AM ED T Respiratory Rate 16 10/26/2022 5:39 AM EDT Oxygen Saturation 95% 10/26/2022 5:39 AM EDT Inhaled Oxygen Concentration - - Weight 91.8 kg (202 lb 6.4 oz) 10/12/2022 6:00 P M EDT Height 167.6 cm (5' 6 ) 10/12/2022 6:00 PM EDT Body Mass Index 32.67 10/12/2022 6:00 PM EDT Plan of Treatment Health Maintenance Due Date Last Done Comments Hepatitis C Virus Screening 1951 Foot Exam 1961 Lipid Panel 1961 Ophthalmology Exam 1961 Microalbumin/Creatinine Ratio Urine 1969 DTaP/Tdap/Td Vaccines (1 - Tdap) 1970 Pneumococcal Vaccines 50+ (1 of 2 - PCV) 1970 Mammogram 1991 Colonoscopy 1996 Zoster (Shingles) Vaccine (1 of 2) 2001 RSV Vaccine 60 years and older and Patients (1 - Risk 60-74 years 1-dose series) 2011 DXA Bone Density (Females,Ages 65 and older) 2016 Diabetic Self-Management Training (DSMT) 10/20/2022 Hemoglobin A1C 01/12/2023 10/13/2022 Creatinine with GFR 10/26/2023 10/25/2022, 10/21/2022, 10/19/2022, Additional history exists Influenza Vaccine 01/24/2024 06/17/2017 COVID-19 Vaccine ( season) 2024 Medical Nutrition Therapy (MNT) 06/25/2024 Hepatitis B Vaccines Aged Out No long er eligible based on patient's age to complete this topic Medical Devices Implanted Type Area Patient Sitter Device Identifier Shelf Expiration Date Model / Serial / Lot Plate Fib Left Dist Lateral 112mm 6 Hole Contour Ss Bone Lcp - [id number] Implanted:Qty: 1 on 10/17/2022 by Clint Willard MD at [facility] Plate Left: Ankle DEPUY JOINT RECONSTRUCTION - A 143 / / .212 Screw Bone T8 12mm Ss 2.7mm 2.1mm Slftp Lock Strdr Thrd Head - [id number] Implanted:Qty: 1 on 10/17/2022 by Clint Willard MD at [facility] Screw Left: Ankle DEPU[employer] - A 202.212 / / 212.103 Screw Bone T15 Flthrd 14mm Ss 3.5mm 2.9mm Slftp Lock Strdr - [id number] Implanted:Qty: 1 on 10/17/2022 by Clint Willard MD at [facility] Screw Left: Ankle DEPU[employer]CTION - A 212.103 / / 205.240 Screw Bone 2.5mm Flthrd Rvrs Cut Flut 40mm Ss 3.5mm 5mm 1.35 - [id number] Implanted:Qty: 1 on 10/17/2022 by Clint Willard MD at [facility] Screw Left: Ankle DEPU[employer]ON[employer]CTION - A 205.240 / / 205.240 Screw Bone 2.5mm Flthrd Rvrs Cut Flut 40mm Ss 3.5mm 5mm 1.35 - [id number] Implanted:Qty: 1 on 10/17/2022 by Clint Willard MD at [facility] Screw Left: Ankle DEPUY JOINT RECONSTRUCTION - A 205.240 / / 202.824 Screw Bone Toribio 2.5mm Flthrd 24mm Ss 2.7mm Slftp Nonst Sm - [id number] Implanted:Qty: 1 on 10/17/2022 by Clint Willard MD at [facility] Screw Left: Ankle DEPUY JOINT RECONSTRUCTION - A 202.824 / / 202.214 Screw Bone T8 14mm Ss 2.7mm 2.1mm Slftp Lock Strdr Thrd Head - [id number] Implanted:Qty: 1 on 10/17/2022 by Clint Willard MD at [facility] Screw Left: Ankle DEPUY JOINT RECONSTRUCTION - A 202.214 / / 202.214 Screw Bone T8 14mm Ss 2.7mm 2.1mm Slftp Lock Strdr Thrd Head - [id number] Implanted:Qty: 1 on 10/17/2022 by Clint Willard MD at [facility] Screw Left: Ankle DEPUY JOINT RECONSTRUCTION - A 202.214 / / 202.214 Screw Bone T8 14mm Ss 2.7mm 2.1mm Slftp Lock Strdr Thrd Head - [id number] Implanted:Qty: 1 on 10/17/2022 by Clint Willard MD at [facility] Screw Left: Ankle DEPUY JOINT RECONSTRUCTION - A 202.214 / / 202.216 Screw Bone T8 16mm Ss 2.7mm 2.1mm Slftp Lock Strdr Thrd Head - [id number] Implanted:Qty: 1 on 10/17/2022 by Clint Willard MD at [facility] Screw Left: Ankle DEPUY JOINT RECONSTRUCTION - A 202.216 / / 204.814 Screw Bone Toribio 2.5mm Flthrd 14mm Ss 3.5mm Slftp Lp Sm Hex - [id number] Implanted:Qty: 1 on 10/17/2022 by Clint Willard MD at [facility] Screw Left: Ankle DEPUY JOINT RECONSTRUCTION - A 204.814 / / 204.814 Screw Bone Toribio 2.5mm Flthrd 14mm Ss 3.5mm Slftp Lp Sm Hex - [id number] Implanted:Qty: 1 on 10/17/2022 by Clint Willard MD at [facility] Screw Left: Ankle DEPUY JOINT RECONSTRUCTION - A 204.814 / / 204.818 Screw Bone Toribio 18mm Ss 3.5mm 6mm Slftp Lp Sm Hex Nonst - [id number] Implanted:Qty: 1 on 10/17/2022 by Clint Willard MD at [facility] Screw Left: Ankle DEPUY JOINT RECONSTRUCTION - A 204.818 / / Procedures Procedure Name Priority Date/Time Associated Diagnosis Comments BASIC METABOLIC PANEL Routine 10/25/2022 11:06 AM EDT HEMOGLOBIN A1C WITH ESTIMATED AVERAGE GLUCOSE Routine 10/13/2022 6:38 AM EDT from Last 3 Months or Most Recently Relevant to Health Maintenance Results * (ABNORMAL) Basic Metabolic Panel (Routine) (10/25/2022 11:06 AM EDT) Glucose 168(H) 65 - 99 mg/dL 10/25/2022 11:49 AM [facility] Comment:Fasting: <100 mg/dL, Non-Fasting: <200 mg/dL (ADA 2004) Blood Urea Nitrogen (BUN) 17 8 - 21 mg/dL 10/25/2022 11:49 AM [facility] Creatinine 0.9 0.4 - 1.1 mg/dL 10/25/2022 11:49 AM [facility] eGFR 68 >59 10/25/2022 11:49 AM [facility] Comment:CKD-EPI (2020) in mL /min/1.73 sq meters. Sodium 139 136 - 145 mmol/L 10/25/2022 11:49 AM [facility] Potassium 4.3 3.4 - 5.3 mmol/L 10/25/2022 11:49 AM [facility] Chloride 105 98 - 107 mmol/L 10/25/2022 11:49 AM [facility] CO2 26 22 - 33 mmol/L 10/25/2022 11:49 AM [facility] Anion Gap 8 7 - 17 10/25/2022 11:49 AM [facility] Calcium 8.7 8.7 - 10.5 mg/dL 10/25/2022 11:49 AM [facility] BUN/Creatinine Ratio 19 10.0 - 25.0 Ratio 10/25/2022 11:49 AM [facility] Blood specimen (specimen) (Plasma/Serum) 10/25/2022 11:06 AM EDT 10/25/2022 11:29 AM EDT Grace Quick MD LAB BLOOD ORDERABLES HOSPITAL LAB See Below [address] [address] * (ABNORMAL) Hemoglobin A1c with Estimated Average Glucose (Early AM) (10/13/2022 6:38 AM EDT) Hemoglobin A1C 9.1(H) <5.7 % 10/13/2022 8:25 AM EDT [facility] Comment: A1c% ? Interpretation 5.7 - 6.0 ?Increase risk of diabetes 6.1 - 6.4 ?Higher risk of diabetes > or = 6.5 ?? Consistent with diabetes Diabetes Care, 33(Supp 1):S1-S61, 2010 Estimated Average Glucose 214 mg/dL 10/13/2022 8:25 AM EDT [facility] Blood specimen (specimen) Blood specimen / Unknown 10/13/2022 6:38 AM EDT 10/13/2022 7:19 AM EDT Arlene Drake PA-C LAB BLOOD ORDERABLES Performing Organization Address City/[facility] Co de Phone Number HOSPITAL LAB See Below [address] [address] from Last 3 Months or Most Recently Relevant to Health Maintenance Advance Directives * Full Code (Latest Code Status on File) Date Activated Date Inactivated Comments 10/17/2022 3:17 PM * Full Code Date Activated Date Inactivated Comments 10/12/2022 3:08 AM 10/17/2022 3:17 PM * Full Code Date Activated Date Inactivated Comments 10/09/2022 9:13 AM 10/11/2022 9:31 PM * Full Code Date Activated Date Inactivated Comments 10/09/2022 12:28 AM 10/09/2022 9:13 AM Question Answer Comments Decision Thoroughly Discussed with: Legally Auth orized Biostatistics Director Name of Legally Authorized Biostatistics Director: Kristine Weeks Healthcare Agents on File Name Relationship Healthcare Agent Relationshi p Communication Micky Shirley Spouse 4. Next of Kin ( Spouse, Adult Child, Parent, Adult Sibling, Grandparent) Care Teams Die Keeper Relationship Specialty Start Date End Date Pcp, No [address] [place] [address] PCP - General 10/11/22
--- OUTSIDE RECORDS SUMMARY | 2024-08-13 10:16 | XMS_ITS ---
Author Name [facility] Organization Unknown History of Medication Use Medication Directions Dispensed Refills Start Date End Date Stat us donepezil (ARICEPT) 5 MG tablet Take 1 tablet (5 mg total) by mouth nightly. 10/26/2022 active Alcohol Swabs 70 % Pads Use as directed. 10/26/2022 active acetaminophen (TYLENOL) 325 MG tablet Take 3 tablets (975 mg total) by mouth every 8 (eight) hours around the clock. 10/26/2022 active simvastatin (ZOCOR) 20 MG tablet Take 1 tablet (20 mg total) by mouth daily. 08/26/2022 active Blood Glucose Monitoring Suppl (Accu-Chek Guide) w/Device Kit 1 kit by Does not apply route 3 (three) times a day. 10/30/2022 active QUEtiapine (SEROquel) 25 MG tablet Take 0.5 tablets (12.5 mg total) by mouth 2 (two) times a day as needed (use if restless). 10/26/2022 active QUEtiapine (SEROquel) 50 MG tablet Take 1 tablet (50 mg total) by mouth nightly. 10/26/2022 active senna-docusate (SENNA-S) 8.6-50 MG Take 2 tablets by mouth nightly. 10/26/2022 active metFORMIN (FORTAMET) 1000 MG (OSM) 24 hr tablet Take 1 tablet (1,000 mg total) by mouth 2 (two) times a day with meals. Swallow whole. Do not crush, break or chew. 10/26/2022 active multivitamin with minerals Tab tablet Take 1 tablet by mouth daily. Do not start before October 27, 2022. 10/27/2022 active Problems Problem Status Onset Date Problem Type Date of Resolution Source Dementia active 2022-10-09 ProblemAct [facility] Closed bimalleolar fracture of left ankle with routine healing, subsequent encounter active EncounterDiagnosisAct [facility] Type 2 diabetes mellitus without complication, without long-term current use of insulin active 2022-10-20 ProblemAct [facility] KAET (acute kidney injury) active 2022-10-09 ProblemAct [facility] HTN (hypertension) active 2022-10-09 ProblemAct [facility] Trimalleolar fracture of left ankle active 2022-10-09 ProblemAct [facility] Closed bimalleolar fracture of left ankle active 2022-10-11 ProblemAct [facility] Acute encephalopathy active 2022-10-20 ProblemAct [facility]
--- OUTSIDE RECORDS SUMMARY | 2024-08-13 10:16 | XMS_ITS | Patient Health Record ---
Author Organization [facility] Address [address] [place] [address] Care Team Providers Care House Mother Name Role Phone Franky Martino MD Primary Care Provider Tyree Peguero Unavailable [phone] REASON FOR REFERRAL No Information MEDICATIONS Medication SIG (Take, Route, Frequency, Duration) Notes Start Date End Date Status Simvastatin 20 MG 1 tablet in the even ing Orally Once a day Active Donepezil HCl 10 MG 1 tablet at bedtime Orally Once a day Active Aspir-81 81 MG 1 tablet Orally Once a day Active Losartan Potassium 50 MG 1 Orally qd Active Namenda 5 MG 2 tablet Orally Twic e a day Active Citalopram Hydrobromide 20 MG 1 tablet Orally Once a day Active Vitamin D 1000 UNIT 1 tablet Orally Once a day Active SOCIAL HISTORY Sex Assigned At : Social History Observation Description Sex Assigned At Unknown PROBLEMS Problem Type ICD Code Onset Dates Problem Status W/U Status Risk SNOMED Code Notes Problem Colon cancer screening (V76.51) Active confirmed Colon cancer screening (048010585) Problem Long-term use of aspirin therapy (V58.66) Active confirmed PLAN OF TREATMENT Future Test Test Name Order Date COLONOSCOPY 02/16/2015 Insurance Providers Payer Name Payer Address Payer Phone Subscriber Number Group Number Insured Name Patient Relationship to Insured Coverage Start Date Coverage End Date [place] [address] [place] [address] [id number] ELOISA SHIRLEY Self - patient is the insured [employer] CLAIMS [address] [place] [address] [id number] ELOISA SHIRLEY Self - patient is the insured MEDICAL (GENERAL) HISTORY Medical History History ICD Code Hypertension Denies [place],DM,CVA,Lung disease,renal dise ase Hyperlipidemia Early-onset dementia--sees Dr. Lehman in Neurology at [facility] Surgical History Surgery Date(Month/Year) tubal ligation 1983 cholecystectomy
== END 2024-08-13 10:23 | disposition home or self-care (01) ==
PROVIDERS: PCP Internal Medicine; Visit Provider Internal Medicine
DX: F03.90 Unspecified dementia, unspecified severity, without behavioral disturbance, psychotic disturbance, mood disturbance, and anxiety (principal)

== ENCOUNTER → 2024-08-13 09:52 | Outpatient (BNVA) | payer MEDICARE, MEDICAID, SELFPAY | PROVIDERS: PCP Internal Medicine; Visit Provider Internal Medicine | DX: F03.90 Unspecified dementia, unspecified severity, without behavioral disturbance, psychotic disturbance, mood disturbance, and anxiety (principal) | CPT/HCPCS: 99212 ==

== ENCOUNTER 2024-08-18 09:01 | Outpatient (REF) | payer MEDICARE, MEDICAID, SELFPAY ==
[2024-08-18 09:21] LABS: MANUAL DIFF FLAG NO
--- OUTSIDE RECORDS SUMMARY | 2024-08-18 09:35 | XMS_ITS | Patient Health Record ---
Author Organization [facility] Address [address] [address] Support Name Relationship Address Phone ELOISA SHIRLEY Guarantor Unknown [phone] Reason For Referral No Information Medications Medication SIG (Take, Route, Frequency, Duration) Notes Start Date End Date Status Vitamin D3 1000 IU ORAL daily for -3 [facility] 11/29/2011 Active Simvastatin 20MG 1 ORAL daily for -3 [facility] 01/15/2012 Active Lisinopril 10MG 1 ORAL daily for -3 [facility] 07/12/2011 Active Citalopram Hydrobromide 10MG 1 ORAL daily for -3 [facility] 11/29/2011 Active Aspirin EC 81MG 1 ORAL daily for -3 [facility] 04/04/2011 Active Aricept 10MG 1 ORAL at bedtime for -3 [facility] 09/14/2011 Active PriLOSEC OTC 20MG 1 ORAL daily for -3 [facility] 04/04/2011 Active Namenda 5MG 1 ORAL twice daily f or -3 [facility] 11/29/2011 Active Problems Problem Type SNOMED Code ICD Code Onset Dates Problem Status W/U Status Risk Notes Problem Type II diabetes mellitus without complication (406694262) Diabetes mellitus without mention of complication, type II or unspecified type, not stated as uncontrolled (250.00) Active confirmed Major Problem Hyperlipidemia (74855750) Other and unspecified hyperlipidemia (272.4) Active confirmed Major Problem Depressive disorder (11357328) Depressive disorder, not elsewhere classified (311) Active confirmed Major Problem Mitral valve disorder (42482354) Mitral valve disorders (424.0) Active confirmed Major Problem Heart disease (94779251) Unspecified heart disease (429.9) Active confirmed Diag Problem Irritable bowel syndrome (53114176) Irritable bowel syndrome (564.1) Active confirmed Major Problem Dizziness and giddiness (708276703) Dizziness and giddiness (780.4) Active confirmed Diag Problem Headache (81349461) Headache (784.0) Active confirmed Diag Problem Cough (92932194) Cough (786.2) Active confirmed Diag Problem Allergy (030214976) Allergy, unspecified not elsewhere classified (995.3) Active confirmed Diag Plan Of Treatment No Information Insurance Providers Payer Name Payer Address Payer Phone Subscriber Number Group Number Insured Name Patient Relationship to Insured Coverage Start Date Coverage End Date [employer] [place] [address] [place] [address] [id number] ELOISA SHIRLEY Self - patient is the insured
--- OUTSIDE RECORDS SUMMARY | 2024-08-18 09:35 | XMS_ITS | Clinical Summary ---
Author Organization [facility] Address [address] [place] [id number] Care Team Providers Care Floor Care Specialist Name Role Phone Pcp, No Primary Care [...] (10/17/2022): Added automatically from request for surgery [id number] Trimalleolar fracture of left ankle 10/09/2022 Dementia [...] this topic Medical Devices Implanted Type Area Wet Sander Device Identifier Shelf Expiration Date Model / Serial / Lot Plate Fib Left Dist Lateral 112mm 6 Hole Contour Ss Bone Lcp - [id number] Implanted:Qty: 1 on 10/17/2022 by Clint Willard MD at [facility] Plate Left: Ankle DEPU[employer] - A 143 / / .212 Screw Bone T8 12mm Ss 2.7mm 2.1mm Slftp Lock Strdr Thrd Head - [id number] Implanted:Qty: 1 on 10/17/2022 by Clint Willard MD at [facility] Screw Left: Ankle [employer] - A 202.212 / / 212.103 Screw Bone T15 Flthrd 14mm Ss 3.5mm 2.9mm Slftp Lock Strdr - [id number] Implanted:Qty: 1 on 10/17/2022 by Clint Willard MD at [facility] Screw Left: Ankle [employer] - A 212.103 / / 205.240 Screw Bone 2.5mm Flthrd Rvrs Cut Flut 40mm Ss 3.5mm 5mm 1.35 - [id number] Implanted:Qty: 1 on 10/17/2022 by Clint Willard MD at [facility] Screw Left: Ankle [employer] - A 205.240 / / 205.240 Screw Bone 2.5mm Flthrd Rvrs Cut Flut 40mm Ss 3.5mm 5mm 1.35 - [id number] Implanted:Qty: 1 on 10/17/2022 by Clint Willard MD at [facility] Screw Left: Ankle [employer]PU[employer] - A 205.240 / / 202.824 Screw Bone Toribio 2.5mm Flthrd 24mm Ss 2.7mm Slftp Nonst Sm - [id number] Implanted:Qty: 1 on 10/17/2022 by Clint Willard MD at [facility] Screw Left: Ankle [employer]PU[employer] - A 202.824 / / 202.214 Screw Bone T8 14mm Ss 2.7mm 2.1mm Slftp Lock Strdr Thrd Head - [id number] Implanted:Qty: 1 on 10/17/2022 by Clint Willard MD at [facility] Screw Left: Ankle DEPU[employer]STRU[employer] - A 202.214 / / 202.214 Screw Bone T8 14mm Ss 2.7mm 2.1mm Slftp Lock Strdr Thrd Head - [id number] Implanted:Qty: 1 on 10/17/2022 by Clint Willard MD at [facility] Screw Left: Ankle DEPU[employer]ONSTRUCTION - A 202.214 / / 202.214 Screw Bone T8 14mm Ss 2.7mm 2.1mm Slftp Lock Strdr Thrd Head - [id number] Implanted:Qty: 1 on 10/17/2022 by Clint Willard MD at [facility] Screw Left: Ankle DEPUY JO[employer] RECONSTRUCTION - A 202.214 / / 202.216 Screw Bone T8 16mm Ss 2.7mm 2.1mm Slftp Lock Strdr Thrd Head - [id number] Implanted:Qty: 1 on 10/17/2022 by Clint Willard MD at [facility] Screw Left: Ankle DEPU[employer]ONSTRUCTION - A 202.216 / / 204.814 Screw Bone Toribio 2.5mm Flthrd 14mm Ss 3.5mm Slftp Lp Sm Hex - [id number] Implanted:Qty: 1 on 10/17/2022 by Clint Willard MD at [facility] Screw Left: Ankle DEPU[employer]STRUCTION - A 204.814 / / 204.814 Screw Bone Toribio 2.5mm Flthrd 14mm Ss 3.5mm Slftp Lp Sm Hex - [id number] Implanted:Qty: 1 on 10/17/2022 by Clint Willard MD at [facility] Screw Left: Ankle [employer]PU[employer]STRUCTION - A 204.814 / / 204.818 Screw Bone Toribio 18mm Ss 3.5mm 6mm Slftp Lp Sm Hex Nonst - [id number] Implanted:Qty: 1 on 10/17/2022 by Clint Willard MD at [facility] Screw Left: Ankle DEPUY JOINT RECONSTRUCTION - [...] 65 - 99 mg/dL 10/25/2022 11:49 AM [facility] Comment:Fasting: <100 mg/dL, Non-Fasting: <200 mg/dL (ADA 2004) Blood Urea Nitrogen (BUN) 17 8 - 21 mg/dL 10/25/2022 11:49 AM [facility] Creatinine 0.9 0.4 - 1.1 mg/dL 10/25/2022 11:49 AM [facility] eGFR 68 >59 10/25/2022 11:49 AM [facility] Comment:CKD-EPI (2020) in mL /min/1.73 sq meters. Sodium 139 136 - 145 mmol/L 10/25/2022 11:49 AM [facility] Potassium 4.3 3.4 - 5.3 mmol/L 10/25/2022 11:49 AM [facility] Chloride 105 98 - 107 mmol/L 10/25/2022 11:49 AM [facility] CO2 26 22 - 33 mmol/L 10/25/2022 11:49 AM [facility] Anion Gap 8 7 - 17 10/25/2022 11:49 AM [facility] Calcium 8.7 8.7 - 10.5 mg/dL 10/25/2022 11:49 AM [facility] BUN/Creatinine Ratio 19 10.0 - 25.0 Ratio 10/25/2022 11:49 AM [facility] Blood specimen (specimen) (Plasma/Serum) 10/25/2022 11:06 AM EDT 10/25/2022 11:29 AM EDT Grace Quick MD LAB BLOOD ORDERABLES HOSPITAL LAB See Below [address] [address] * (ABNORMAL) Hemoglobin A1c with Estimated Average [...] PA-C LAB BLOOD ORDERABLES Performing Organization Address City[facility] Co de Phone Number HOSPITAL LAB See Below [address] [address] from Last 3 Months or Most Recently [...] Decision Thoroughly Discussed with: Legally Auth orized Game Warden Name of Legally Authorized Game Warden: Kristine Weeks Healthcare Agents on File Name Relationship Healthcare Agent Relationshi p Communication Micky Shirley Spouse 4. Next of Kin ( Spouse, Adult Child, Parent, Adult Sibling, Grandparent) Care Teams Floor Care Specialist Relationship Specialty Start Date End Date Pcp, No [address] [place] [address] PCP - General 10/11/22
[2024-08-18 10:00] LABS: Basophils Absolute Auto 0.1 X10*3/uL (0.0-0.2); Eosinophils Absolute Auto 0.1 X10*3/uL (0.0-0.4); Eosinophils Percent Auto 1.5 % (0-4); Hemoglobin 12.5 g/dl (12.0-16.0); Imm Gran Abs Auto 0.01 X10*3/uL (0.00-0.03); Imm Gran Pct Auto 0.2 % (0.0-0.4); Lymphocytes Absolute Auto 2.2 X10*3/uL (1.2-4.9); Lymphocytes Percent Auto 36.9 % (20-40); Mean Corpuscular HGB Conc 33.8 g/dl (31.0-35.0); Mean Corpuscular Hemoglobin 33.2 pg (27.0-33.0); Mean Corpuscular Volume 98.4 fL (80.0-98.0); Mean Platelet Volume 11.9 fL (9.4-12.3); Monocytes Absolute Auto 0.4 X10*3/uL (0.1-1.2); Monocytes Percent Auto 6.7 % (2-11); Neutrophils Absolute Auto 3.1 x10*3/uL (2.0-8.3); Neutrophils Percent Auto 53.7 % (45-73); Platelet Count 279 X10*3/uL (160-400); Red Blood Count 3.76 X10*6/uL (4.20-5.50); Red Cell Distribution Width 12.7 % (11.0-16.0); White Blood Count 5.8 X10*3/uL (4.8-10.8)
[2024-08-18 11:51] LABS: Alanine Aminotransferase 11 U/L (0-31); Albumin Level 3.8 g/dL (3.5-5.0); Alkaline Phosphatase 47 U/L (39-117); Anion Gap 13 (12-20); Aspartate Amino Transferase 15 U/L (5-31); Bilirubin Total 0.6 mg/dL (0.0-1.0); Blood Urea Nitrogen 38 mg/dL (9-16); Calcium 9.2 mg/dL (8.4-10.2); Carbon Dioxide 22 mmol/L (22-29); Chloride 116 mmol/L (96-108); Estimated Glomerular Filt Rate 46; Glucose Fasting 124 mg/dL (60-99); Potassium 3.7 mmol/L (3.3-5.1); Sodium 147 mmol/L (135-145); Total Protein 6.6 g/dL (6.5-8.0)
== END 2024-08-18 09:02 | disposition home or self-care (01) ==
LOC: HO.LAB 09:01
PROVIDERS: PCP Internal Medicine; Visit Provider Internal Medicine
DX: Z13.0 Encounter for screening for diseases of the blood and blood-forming organs and certain disorders involving the immune mechanism (principal); Z13.9 Encounter for screening, unspecified
CPT/HCPCS: 36415; 80053; 85025

== ENCOUNTER 2024-11-05 16:29 | Outpatient (AMB) | payer MEDICARE, MEDICAID, SELFPAY ==
--- OUTSIDE RECORDS SUMMARY | 2024-11-05 16:31 | XMS_ITS | Patient Health Record ---
Author Organization [facility] Address [address] [address] Support Name Relationship Address Phone ELOISA SHIRLEY Guarantor Unknown [phone] Reason For Referral No Information Medications Medication SIG (Take, Route, Frequency, Duration) Notes Start Date End Date Status Vitamin D3 1000 IU ORAL daily for -3 [facility] 11/29/2011 Active Simvastatin 20MG 1 ORAL daily for -3 [facility] 01/15/2012 Active Lisinopril 10MG 1 ORAL daily for -3 [facility] 07/12/2011 Active Citalopram Hydrobromide 10MG 1 ORAL daily for -3 [facility] 11/29/2011 Active Aspirin EC 81MG 1 ORAL daily for -3 [facility] 04/04/2011 Active Aricept 10MG 1 ORAL at bedtime for -3 [facility] 09/14/2011 Active PriLOSEC OTC 20MG 1 ORAL daily for -3 [facility] 04/04/2011 Active Namenda 5MG 1 ORAL twice daily f or -3 [facility] 11/29/2011 Active Problems Problem Type SNOMED Code ICD Code Onset Dates Problem Status W/U Status Risk Notes Problem Type II diabetes mellitus without complication (294247221) Diabetes mellitus without mention of complication, type II or unspecified type, not stated as uncontrolled (250.00) Active confirmed Major Problem Hyperlipidemia (77811085) Other and unspecified hyperlipidemia (272.4) Active confirmed Major Problem Depressive disorder (44909267) Depressive disorder, not elsewhere classified (311) Active confirmed Major Problem Mitral valve disorder (87258436) Mitral valve disorders (424.0) Active confirmed Major Problem Heart disease (02242051) Unspecified heart disease (429.9) Active confirmed Diag Problem Irritable bowel syndrome (80141073) Irritable bowel syndrome (564.1) Active confirmed Major Problem Dizziness and giddiness (105557834) Dizziness and giddiness (780.4) Active confirmed Diag Problem Headache (38248135) Headache (784.0) Active confirmed Diag Problem Cough (44837705) Cough (786.2) Active confirmed Diag Problem Allergy (415122438) Allergy, unspecified not elsewhere classified (995.3) Active confirmed Diag Plan Of Treatment No Information Insurance Providers Payer Name Payer Address Payer Phone Subscriber Number Group Number Insured Name Patient Relationship to Insured Coverage Start Date Coverage End Date [employer] [place] [address] [place] [address] [id number] 01 ELOISA SHIRLEY Self - patient is the insured
--- OUTSIDE RECORDS SUMMARY | 2024-11-05 16:31 | XMS_ITS | Patient Health Record ---
Author Organization [facility] Address [address] [place] [address] Care Team Providers Care Healthcare Representative Name Role Phone Franky Martino MD Primary Care Provider Tyree Peguero Unavailable [phone] Reason For Referral No Information Medications Medication [...] 1 tablet Orally Once a day Active Problems Problem Type SNOMED Code ICD Code Onset Dates Problem Status W/U Status Risk Notes Problem Colon cancer screening (075051496) Colon cancer screening (V76.51) Active confirmed Problem Long-term use of aspirin therapy (V58.66) Active confirmed Plan Of Treatment Future Test Test Name Order Date COLONOSCOPY 02/16/2015 Insurance Providers Payer Name Payer Address Payer Phone Subscriber Number Group Number Insured Name Patient Relationship to Insured Coverage Start Date Coverage End Date MEDICARE OF [place] [address] [place] [address] [phone] [id number] ELOISA SHIRLEY Self - patient is the insured [employer] CLAIMS [address] [place] [address] [phone] [id number] ELOISA SHIRLEY Self - patient is the insured Medical (General) History Medical History History ICD Code Hypertension Denies FL,DM,CVA,Lung disease,renal dise ase Hyperlipidemia Early-onset dementia--sees Dr. Lehman in Neurology at [facility] Surgical History Surgery Date(Month/Year) tubal ligation 1983 cholecystectomy
[2024-11-05 16:40] VITALS: BP 110/72; BMI 23.7
--- NOTE | 2024-11-05 16:40 | A.OFFPC_ITS ---
Vital Signs 11/05/24 16:40 Height 5 ft 6 in Weight 147 lb BMI 23.7 BP 110/72 Blood Pressure Location Lt brachial Position Sitting Intake Visit Reasons: Transfer care from Dr. 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 Accompanied by: Daughter Allergies No Known Allergies [No Known Allergies*] Allergy (Verified 11/05/24 16:50) Tobacco use date assessed: 08/13/24 Fall risk assessment: No Falls in past year Last assessed Fall Risk: 11/05/24 Dental Screening Dental Screen Date: 11/05/24 Did you have a dental visit in the last 12 months?: No Did you have a dental problem in the last 6 months where you did not have access to dental care?: No Was dental information given to patient?: Patient declined HPI HPI Comments History of Present Illness Details The patient is a 74-year-old female presenting with the intention of establishing ongoing care and managing her chronic conditions. Her history includes fronto-temporal lobe dementia diagnosed 13 years ago, showing marked deterioration. Notably, there is a history of weight loss attributed to reduced food intake during the past winter, though recent months have shown recovery in appetite. There is no known medication allergy reported, and caregiver-assisted administration of medications is noted due to cognitive decline and swallow function variability. Family history is significant for alcohol-related conditions with both parents. Surgical records include partial hysterectomy, cholecystectomy, and tonsillectomy, with a previous colonoscopy revealing tu bular adenoma, although follow-up was delayed due to external circumstances. Vaccination records indicate a gap for the Td vaccine. [facility] Medical History (Updated 11/05/24 @ 17:21 by Mari Moss MD) Hyperlipidemia associated with type 2 diabetes mellitus Post-menopausal Eye exam, routine Screening for breast cancer Screening for colon cancer Screening for diabetes mellitus Hyperlipidemia Hypertension Surgical History History of ankle surgery History of colonoscopy History of partial hysterectomy History of cholecystectomy History of tonsillectomy Family History Father Alcohol abuse Mother Liver problem Family/Other Alcoholism Social History Household Members: Spouse Housing: House Do you presently have visiting nurse or other home services: No Alcohol intake: never Comment: 1:1 sitter Patient Tobacco Use Status: Never used Tobacco e-Cigarette/Vaping Use: Never Used Second Hand Smoke Exposure: No service: No Current occupational status: retired Cognitive needs: Yes Hearing needs: No Vision needs: Yes Questionnaire PHQ-9 Over the last 2 weeks, how often have you been bothered by any of the following problems? 1. Little interest or pleasure in doing things: not at all 2. Feeling down, depressed, or hopeless: more than half the days 3. Trouble falling or staying asleep, or sleeping too much: not at all 4. Feeling tired or having little energy: nearly every day 5. Poor appetite or overeating: more than half the days 6. Feeling bad about yourself - or that you are a failure or have let yourself or your family down: not at all 7. Trouble concentrating on things, such as reading the newspaper or watching television: nearly every day 8. Moving or speaking so slowly that other people could have noticed. Or the opposite - being so fidgety or restless that you have been moving around a lot more than usual: nearly every day 9. Thoughts that you would be better off or of hurting yourself in some way: not at all Total score: 13 Depression Screening Interpretation: Positive Depression Screening Follow-up: Existing condition and Follow-up Visit Requested Depression Screening Done: Yes 45831 - PHQ-9 Billing: Yes Source: Developed by Drs. Tyree Weems, Dennise Newton, Remigio Lau and colleagues, with an educational sri from [employer]. Thrive Questionnaire Date Thrive assessed: 10/29/24 I am a: Patient What is your living situation today?: I have a steady place to live Within the past 12 months, did the food you bought not last and you didn't have the money to get more?: Never true Within the past 12 months, did you worry whether your food would run out before you got money to buy more?: Never true Do you have trouble paying for medicines?: No Do you have trouble getting transportation to medical appointments?: No Do you have trouble paying your heating and electricity bill?: No Do you have trouble taking care of your child, family member or friend?: No Do you have trouble with day-to-day activities such as bathing, preparing meals, shopping, managing finances, etc.?: Yes Are you currently unemployed and looking for a job?: No Are you interested in more education?: No Please select the resources that you would like help with: Care for elder or disabled and Daily support Currently or been in a relationship where the following occur: No concerns reported THRIVE Score: 0 AUDIT C Alcohol Use Questionnaire (AUDIT-C) 1. How often do you have a drink containing alcohol?: Never Total Score: 0 Score Reviewed/Action Taken: No RAJWINDER-7 AMB Questionnaire RAJWINDER-7 Date RAJWINDER - 7 assessed: 07/14/24 Feeling nervous, anxious, or on edge: 3 = Nearly every day Not being able to stop or control worryin = Nearly every day Worrying too much about different things: 2 = More than half the days Trouble relaxin = Several days Being so restless that it is hard to sit still: 1 = Several days Becoming easily annoyed or irritable: 2 = More than half the days Feeling afraid as if something awful might happen: 2 = More than half the days Total RAJWINDER-7 score (0-4 normal; 5-9 mild; 10-14 moderate; 15-21 severe): 14 Source: Developed by Drs. Tyree Weems, Dennise Newton, Remigio Lau and colleagues, with an educational sri from [employer]. RAJWINDER-7 Assessment Billing RAJWINDER-7 Assessment Tool: RAJWINDER-7 Assessment 05684 Review of Systems Const All systems reviewed & are unremarkable except as noted in HPI and below Card Denies chest pain at rest, Denies chest pain with activity, Denies edema, Denies irregular heart rhythm, Denies claudication, Denies dyspnea, Denies dyspnea on exertion, Denies orthopnea, Denies paroxysmal nocturnal dyspnea and Denies slow heart rate Resp Denies cough, Denies dyspnea and Denies dyspnea on exertion Neuro Reports confusion and Reports memory loss Psych Reports confusion and Reports memory loss Physical exam (Primary Care) Vital Signs: Last Vital Signs BP 110/72 11/05/24 16:40 BMI result Body Mass Index 23.7 Tobacco/Smoking Status: Tobacco use Status Tobacco use date assessed 08/13/24 11/05/24 16:45 Patient Tobacco Use Status Never used Tobacco 11/05/24 16:45 Tobacco use type 11/05/24 16:45 e-Cigarette/Vaping Use Never Used 11/05/24 16:45 PHQ-9: PHQ-9 Score PHQ-9: Total score 13 11/05/24 16:48 Depression Screening Interpretation: Positive Depression Screening Follow-up: Existing condition and Follow-up Visit Requested Thrive Assessment: Date of Thrive Assessment Date Thrive assessed 10/29/24 11/05/24 16:45 Currently or been in a relationship where the following occur: No concerns reported Const General: confusion Orientation/consciousness: confusion Resp Effort & Inspection: normal respiratory effort Auscultation: clear to auscultation bilaterally Cardio Jugular venous distension: no JVD Rate: regular rate Rhythm: regular rhythm Heart sounds: S1 normal heart sound present and S2 normal heart sound present Neuro General: confusion Extrem General: Yes full ROM Results AMB Hemoglobin A1c AMB Hemoglobin A1c 5.1 % Last Edit by MICHELLE Sanders on 11/05/24 16:5 5 Coding Level of Care Code Est Pt Level 4 (38959) Complex EM visit Add On G2211 Diagnoses Diabetes mellitus with coincident hypertension E11.9; I10 Hyperlipidemia associated with type 2 diabetes mellitus E11.69; E78.5 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; F02.C18 Dementia type: other frontotemporal dementia Dementia severity: severe Dementia behavioral or psychological symptom: with other behavioral disturbance Hypertension, unspecified type I10 Hypertension type: unspecified Additional Codes PHQ-9 - 03292 - PHQ-9 Billing: Yes ([id number]) RAJWINDER-7 Assessment Billing - RAJWINDER-7 Assessment Tool: RAJWINDER-7 Assessment 09058 ([id number]) Time Spent (min) 23 Assessment & Plan Assessment & Plan (1) Diabetes mellitus with coincident hypertension: Code(s): E11.9 - Type 2 diabetes mellitus without complications; I10 - Essential (prim yessi) hypertension Category: Medical (2) Hyperlipidemia associated with type 2 diabetes mellitus: Code(s): E11.69 - Type 2 diabetes mellitus with other specified complication; E78.5 - Hyperlipidemia, unspecified Category: Medical (3) Dementia: Code(s): F03.90 - Unspecified dementia, unspecified severity, without behavioral disturbance, psychotic disturbance, mood disturbance, and anxiety Category: Medical Qualifiers: Dementia type: other frontotemporal dementia Dementia severity: severe Dementia behavioral or psychological symptom: with other behavioral disturbance Qualified Code(s): G31.09 - Other frontotemporal neurocognitive disorder; F02.C18 - Dementia in other diseases classified elsewhere, severe, with other behavioral disturbance (4) Hypertension: Code(s): I10 - Essential (primary) hypertension Category: Medical Qualifiers: Hypertension type: unspecified Qualified Code(s): I10 - Essential (primary) hypertension Plan Melody's ongoing care focuses on managing her chronic conditions with support from her caregivers. Medications are adjusted to suit her functional status, with losartan, memantine, citalopram, metformin, and simvastatin maintaining control over hypertension, dementia, depression, diabetes, and hyperlipidemia, respectively. Due immunizations, specifically the Td vaccine, need to be administered promptly. A flexible dietary approach is proposed to ensure sufficient nutritional intake given past weight loss. Continuous monitoring of dementia symptoms and progressions is encouraged, with a collaborative care strategy involving her family for optimal management of her chronic health conditions. Patient was informed and verbally consented to the use of an ambient scribe for clinic note documentation during this visit. I discussed with Melody and her caregiver the current management strategies for her chronic conditions. For fronto-temporal lobe dementia, we focused on supportive care with memantine administration and stressed the necessity of continuous caregiver engagement. I stressed the importance of monitoring nutritional intake, particularly given past incidences of weight loss. I also clarified that due to her condition's chronic nature, neurological visits may not be routinely required unless specific changes arise. Moreover, the importance of updating her Td vaccination was highlighted. We agreed that a holistic approach incorporating dietary flexibility and caregiver support remains crucial for her health and wellness. Orders: Orders AMB Hemoglobin A1c Today E11.9 - Type 2 diabetes mellitus without complications, I10 - Essential (primary) hypertension Lipid Panel 4 Months E78.5 - Hyperlipidemia, unspecified Microalbumin, Random (w Creat) 4 Months R80.9 - Proteinuria, unspecified Comprehensive Gore. Panel Fast 4 Months E11.9 - Type 2 diabetes mellitus without complications, I10 - Essential (primary) hypertension Patient Instructions: - Continue to administer medications as previously directed. - Consider receiving the Td vaccine as soon as possible. - Monitor and support nutritional intake with caregiver assistance as needed. - Engage in daily mobility support using a wheelchair if required for outings. - Notify her healthcare provider of any abrupt changes or worsening symptoms in her condition. - Maintain regular follow-up care and medication adjustments as advised.
== END 2024-11-05 17:12 | disposition home or self-care (01) ==
PROVIDERS: PCP Internal Medicine; Visit Provider Internal Medicine
DX: E11.69 Type 2 diabetes mellitus with other specified complication (principal); G31.09 Other frontotemporal neurocognitive disorder; F02.C18 Dementia in other diseases classified elsewhere, severe, with other behavioral disturbance; I10 Essential (primary) hypertension; E78.5 Hyperlipidemia, unspecified

== ENCOUNTER → 2024-11-05 16:29 | Outpatient (BNVA) | payer MEDICARE, MEDICAID, SELFPAY | PROVIDERS: PCP Internal Medicine; Visit Provider Internal Medicine | DX: E11.69 Type 2 diabetes mellitus with other specified complication (principal); E78.5 Hyperlipidemia, unspecified; G31.09 Other frontotemporal neurocognitive disorder; F02.C18 Dementia in other diseases classified elsewhere, severe, with other behavioral disturbance; I10 Essential (primary) hypertension | CPT/HCPCS: 83036; 96127; 99212 ==

== ENCOUNTER 2025-02-27 06:32 | Outpatient (REF) | payer MEDICARE, MEDICAID, SELFPAY ==
--- OUTSIDE RECORDS SUMMARY | 2025-02-27 06:35 | XMS_ITS | Patient Health Record ---
Author Organization [facility] Address [address] [address] Support Name Relationship Address Phone ELOISA SHIRLEY Guarantor Unknown [phone] Reason For Referral No Information Medications Medication SIG (Take, Route, Frequency, Duration) Notes Start Date End Date Status Vitamin D3 1000 IU ORAL daily; Duration: -3 [facility] [place]- 2011 Active Simvastatin 20MG 1 ORAL daily; Durati on: -3 [facility] [place]- 01/15/2012 Active Lisinopril 10MG 1 ORAL daily; Durati on: -3 [facility] [place]- 07/12/2011 Active Citalopram Hydrobromide 10MG 1 ORAL daily; Duration: -3 [facility] [place]- 11/29/2011 Active Aspirin EC 81MG 1 ORAL daily; Durati on: -3 [facility] [place]- 04/04/2011 Active Aricept 10MG 1 ORAL at bedtime; Duration: -3 [facility] [place]- 09/14/2011 Active PriLOSEC OTC 20MG 1 ORAL daily; Durati on: -3 [facility] [place]- 04/04/2011 Active Namenda 5MG 1 ORAL twice daily; Duration: -3 [facility] [place]- 11/29/2011 Active Problems Problem Type SNOMED Code ICD Code Onset Dates Problem Status W/U Status Risk Notes Problem Type II diabetes mellitus without complication (800517950) Diabetes mellitus without mention of complication, type II or unspecified type, not stated as uncontrolled (250.00) Active confirmed Major Problem Hyperlipidemia (15942127) Other and unspecified hyperlipidemia (272.4) Active confirmed Major Problem Depressive disorder (44445832) Depressive disorder, not elsewhere classified (311) Active confirmed Major Problem Mitral valve disorder (06061239) Mitral valve disorders (424.0) Active confirmed Major Problem Heart disease (68617463) Unspecified heart disease (429.9) Active confirmed Diag Problem Irritable bowel syndrome (44576770) Irritable bowel syndrome (564.1) Active confirmed Major Problem Dizziness and giddiness (966267725) Dizziness and giddiness (780.4) Active confirmed Diag Problem Headache (78154951) Headache (784.0) Active confirmed Diag Problem Cough (64066258) Cough (786.2) Active confirmed Diag Problem Allergy (605855509) Allergy, unspecified not elsewhere classified (995.3) Active confirmed Diag Plan Of Treatment No Information Insurance Providers Payer Name Payer Address Payer Phone Subscriber Number Group Number Insured Name Patient Relationship to Insured Coverage Start Date Coverage End Date [employer] [place] [address] [place] [address] [id number] ELOISA SHIRLEY Self - patient is the insured
--- OUTSIDE RECORDS SUMMARY | 2025-02-27 06:35 | XMS_ITS | Clinical Summary ---
Author Organization [facility] Address [address] [place] [id number] Care Team Providers Care Aircraft Life Support Fitter Name Role Phone Pcp, No Primary Care Provider Unavailabl e Allergies No known active allergies Medications losartan (COZAAR) 50 MG tablet Take 1 tablet (50 mg total) by mouth daily. 09/12/19 23 Active memantine (NAMENDA) 10 MG tablet Take 1 tablet (10 mg total) by mouth 2 (two) times a day. 09/05/19 23 Active simvastatin (ZOCOR) 20 MG tablet Take 1 tablet (20 mg total) by mouth daily. 08/27/19 23 Active acetaminophen (TYLENOL) 325 MG tabletIndications:L eft trimalleolar fracture Take 3 tablets (975 mg total) by mouth every 8 (eight) hours around the clock. 150 tablet 10/27/19 23 Active citalopram (CeleXA) 20 MG tabletIndications:A cute encephalopathy Take 1 tablet (20 mg total) by mouth daily. Do not start before October 27, 2022. 30 tablet 10/28/19 23 Active donepezil (ARICEPT) 5 MG tabletIndications:A cute encephalopathy Take 1 tablet (5 mg total) by mouth nightly. 30 tablet 10/27/19 23 Active senna-docusate (SENNA-S) 8.6-50 MGIndications:Left trimalleolar fracture Take 2 tablets by mouth nightly. 60 tablet 10/27/19 23 Active enoxaparin (LOVENOX) 40 MG/0.4ML injectionIndication s:Prophylaxis of Venous Thromboembolism Inject 0.4 mL (40 mg total) under the skin every 24 hours around the clock. 4.8 mL 10/27/19 23 Active multivitamin with minerals Tab tabletIndications:A cute encephalopathy Take 1 tablet by mouth daily. Do not start before October 27, 2022. 30 tablet 10/28/19 23 Active sitaGLIPtin (JANUVIA) 25 MG tabletIndications:A cute encephalopathy Take 1 tablet (25 mg total) by mouth daily. 30 tablet 10/27/19 23 Active cholecalciferol (CHOLECALCIFEROL) 25 MCG (1000 UT) tabletIndications:L eft trimalleolar fracture Take 2 tablets (2,000 Units total) by mouth daily. 60 tablet 10/27/19 23 Active QUEtiapine (SEROquel) 25 MG tabletIndications:A cute encephalopathy Take 0.5 tablets (12.5 mg total) by mouth 2 (two) times a day as needed (use if restless). 30 tablet 10/27/19 23 Active traMADol (ULTRAM) 50 MG tabletIndications:A cute encephalopathy Take 0.5 tablets (25 mg total) by mouth 4 times daily (every 6 hours) as needed for severe pain or moderate pain. 20 tablet 10/27/19 23 Active Alcohol Swabs 70 % PadsIndications:Acu te encephalopathy Use as directed. 100 Pad(s) 10/27/19 23 Active OneTouch Verio stripIndications:Ac yojana encephalopathy Test blood glucose 3 times Daily or as instructed. 100 test strip 10/27/19 23 Active OneTouch Delica Lancets 30G Misc lancetIndications:A cute encephalopathy Test blood glucose 3 times Daily or as instructed. 100 lancet(s) 10/27/19 23 Active metFORMIN (GLUCOPHAGE) 500 MG tabletIndications:T ype 2 diabetes mellitus without complication, without long-term current use of insulin (HCC) Take 2 tablets (1,000 mg total) by mouth 2 (two) times a day with meals. 120 tablet 10/28/19 23 Active Alcohol Swabs 70 % PadsIndications:Typ e 2 diabetes mellitus without complication, without long-term current use of insulin (HCC) Use as directed. 100 Pad(s) 10/31/19 Active OneTouch Ultra test stripIndications:Ty pe 2 diabetes mellitus without complication, without long-term current use of insulin (HCC) Test blood glucose 3 times Daily or as instructed. Dgn: diabetes mellitus type 2 E11.9 100 test strip 10/31/19 Active OneTouch Delica Lancets 30G Misc lancetIndications:T ype 2 diabetes mellitus without complication, without long-term current use of insulin (HCC) Test blood glucose 3 times Daily or as instructed. 100 lancet(s) 10/31/19 Active Blood Glucose Monitoring Suppl (ONE TOUCH ULTRA 2 DEVICE KIT) w/Device KitIndications:Type 2 diabetes mellitus without complication, without long-term current use of insulin (HCC) Use as directed.Dgn: diabetes mellitus type 2 E11.9 1 kit 10/31/19 Active Alcohol Swabs 70 % PadsIndications:Typ e 2 diabetes mellitus without complication, without long-term current use of insulin (HCC) Use as directed. 100 Pad(s) 10/31/19 Active Accu-Chek Guide test stripIndications:Ty pe 2 diabetes mellitus without complication, without long-term current use of insulin (HCC) Use as instructed 100 test strip 10/31/19 Active Accu-Chek FastClix Lancets MiscIndications:Typ e 2 diabetes mellitus without complication, without long-term current use of insulin (HCC) Use 3 times daily before meals Dgn: diabetes mellitus type 2 E11.9 102 lancet(s) 10/31/19 Active Active Problems Problem Noted Date Diagnosed Date Acute encephalopathy 10/20/2022 Type 2 diabetes mellitus wit hout complication, without long-term current use of insulin 10/20/2022 Closed bimalleolar fracture of left ankle 2022 Overview (10/17/2022): Added automatically from request for surgery [id number] Trimalleolar fracture of left ankle 10/09/2022 Dementia [...] more drinks on one occasion? Never 10/12/2022 Comments No Sex and Gender Information Value Date Recorded Sex Assigned at Female 10/08/2022 9:14 PM EDT Legal Sex Female 5:01 PM EDT Gender Identity Female 10/08/2022 9:14 PM EDT Sexual Orientation Heterosexual (straight) 10/08 9:14 PM EDT Last Filed Vital Signs Vital Sign Reading Time Taken Comments Blood Pressure 153/72 10/26/2022 8:05 AM EDT Pulse 81 10/26/2022 8:05 AM EDT Temperature 36.1 C (96.9 F) 10/26/2022 5:39 AM EDT Respiratory Rate 16 10/26/2022 5:39 AM EDT Oxygen Saturation 95% 10/26/2022 5:39 AM EDT Inhaled Oxygen Concentration - - Weight 91.8 kg (202 lb 6.4 oz) 10/12/2022 6:00 P M EDT Height 167.6 cm (5' 6 ) 10/12/2022 6:00 PM EDT Body Mass Index 32.67 10/12/2022 6:00 PM EDT Plan of Treatment Health Maintenance Due Date Last Done Comments Advance Care Planning 1950 Hepatitis C Virus Screening 1950 Foot Exam [...] 10/26/2023 10/25/2022, 10/21/2022, 10/19/2022, Additional history exists COVID-19 Vaccine ( season) 2024 Medical Nutrition Therapy (MNT) 06/25/2024 Influenza Vaccine 01/23/2025 06/17/2017 Hepatitis B Vaccines Aged Out No long er eligible based on patient's age to complete this topic Medical Devices Implanted Type Area Senior Audit 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 Device Identifier Shelf Expiration Date Model / Serial / Lot [id number] Plate Fib Left Dist Lateral 112mm 6 Hole Contour Ss Bone Lcp - [id number] Implanted:Qty: 1 on 10/17/2022 by Clint Willard MD at [facility] Plate Left: Ankle DEPUY SYNTHES - A SHANELL AND 112.143 / .212 Screw Bone T8 12mm Ss 2.7mm 2.1mm Slftp Lock Strdr Thrd Head - [id number] Implanted:Qty: 1 on 10/17/2022 by Clint Willard MD at [facility] Screw Left: Ankle DEPUY SYNTHES - A SHANELL AND 202.212 / .103 Screw Bone T15 Flthrd 14mm Ss 3.5mm 2.9mm Slftp Lock Strdr - [id number] Implanted:Qty: 1 on 10/17/2022 by Clint Willard MD at [facility] Screw Left: Ankle DEPUY SYNTHES - A SHANELL AND 212.103 / / .240 Screw Bone 2.5mm Flthrd Rvrs Cut Flut 40mm Ss 3.5mm 5mm 1.35 - [id number] Implanted:Qty: 1 on 10/17/2022 by Clint Willard MD at [facility] Screw Left: Ankle DEPUY SYNTHES - A SHANELL AND 205.240 / / .240 Screw Bone 2.5mm Flthrd Rvrs Cut Flut 40mm Ss 3.5mm 5mm 1.35 - [id number] Implanted:Qty: 1 on 10/17/2022 by Clint Willard MD at [facility] Screw Left: Ankle DEPUY SYNTHES - A SHANELL AND 205.240 / / 202.824 Screw Bone Toribio 2.5mm Flthrd 24mm Ss 2.7mm Slftp Nonst Sm - [id number] Implanted:Qty: 1 on 10/17/2022 by Clint Willard MD at [facility] Screw Left: Ankle DEPUY SYNTHES - A SHANELL AND 202.824 / / 202.214 Screw Bone T8 14mm Ss 2.7mm 2.1mm Slftp Lock Strdr Thrd Head - [id number] Implanted:Qty: 1 on 10/17/2022 by Clint Willard MD at [facility] Screw Left: Ankle DEPUY SYNTHES - A SHANELL AND 202.214 / / 202.214 Screw Bone T8 14mm Ss 2.7mm 2.1mm Slftp Lock Strdr Thrd Head - [id number] Implanted:Qty: 1 on 10/17/2022 by Clint Willard MD at [facility] Screw Left: Ankle DEPUY SYNTHES - A SHANELL AND 202.214 / / 202.214 Screw Bone T8 14mm Ss 2.7mm 2.1mm Slftp Lock Strdr Thrd Head - [id number] Implanted:Qty: 1 on 10/17/2022 by Clint Willard MD at [facility] Screw Left: Ankle DEPUY SYNTHES - A SHANELL AND 202.214 / / 202.216 Screw Bone T8 16mm Ss 2.7mm 2.1mm Slftp Lock Strdr Thrd Head - [id number] Implanted:Qty: 1 on 10/17/2022 by Clint Willard MD at [facility] Screw Left: Ankle DEPUY SYNTHES - A SHANELL AND 202.216 / / 204.814 Screw Bone Toribio 2.5mm Flthrd 14mm Ss 3.5mm Slftp Lp Sm Hex - [id number] Implanted:Qty: 1 on 10/17/2022 by Clint Willard MD at [facility] Screw Left: Ankle DEPUY SYNTHES - A SHANELL AND 204.814 / / 204.814 Screw Bone Toribio 2.5mm Flthrd 14mm Ss 3.5mm Slftp Lp Sm Hex - [id number] Implanted:Qty: 1 on 10/17/2022 by Clint Willard MD at [facility] Screw Left: Ankle DEPUY SYNTHES - A SHANELL AND 204.814 / / 204.818 Screw Bone Toribio 18mm Ss 3.5mm 6mm Slftp Lp Sm Hex Nonst - [id number] Implanted:Qty: 1 on 10/17/2022 by Clint Willard MD at [facility] Screw Left: Ankle DEPUY SYNTHES - A SHANELL AND 204.818 / / Procedures Procedure Name Priority Date/Time Associated Diagnosis Comments BASIC METABOLIC PANEL Routine 10/25/2022 11:06 AM EDT HEMOGLOBIN A1C WITH ESTIMATED AVERAGE GLUCOSE Routine 10/13/2022 6:38 AM EDT from Last 3 Months or Most Recently Relevant to Health Maintenance Results * (ABNORMAL) Basic Metabolic Panel (Routine) (10/25/2022 11:06 AM EDT) Glucose 168(H) 65 - 99 mg/dL 10/25/2022 11:49 AM [facility] Comment:Fasting: <100 mg/dL, Non-Fasting: <200 mg/dL (ADA 2005) Blood Urea Nitrogen (BUN) 17 8 - 21 mg/dL 10/25/2022 11:49 AM [facility] Creatinine 0.9 0.4 - 1.1 mg/dL 10/25/2022 11:49 AM [facility] eGFR 68 >59 10/25/2022 11:49 AM [facility] Comment:CKD-EPI (2020) in mL /min/1.73 sq meters. Sodium 139 136 - 145 mmol/L 10/25/2022 11:49 AM [facility] Potassium 4.3 3.4 - 5.3 mmol/L 10/25/2022 11:49 AM [facility] Chloride 105 98 - 107 mmol/L 10/25/2022 11:49 AM [facility] CO2 26 22 - 33 mmol/L 10/25/2022 11:49 AM [facility] Anion Gap 8 7 - 17 10/25/2022 11:49 AM [facility] Calcium 8.7 8.7 - 10.5 mg/dL 10/25/2022 11:49 AM [facility] BUN/Creatinine Ratio 19 10.0 - 25.0 Ratio 10/25/2022 11:49 AM EDT [facility] Blood specimen (specimen) (Plasma/Serum) 10/25/2022 11:06 AM EDT 10/25/2022 11:29 AM EDT us Grace Quick MD LAB BLOOD ORDERABLES Final Resu lt Performing Organization Address [facility] Co de Phone Number HOSPITAL LAB See Below [address] [address] * (ABNORMAL) Hemoglobin A1c with Estimated Average Glucose (Early AM) (10/13/2022 6:38 AM EDT) Hemoglobin A1C 9.1(H) <5.7 % 10/13/2022 8:25 AM EDT [facility] Comment: A1c% Interpretation 5.7 - 6.0 Increase risk of diabetes 6.1 - 6.4 Higher risk of diabetes > or = 6.5 Consistent with diabetes Diabetes Care, 33(Supp 1):S1-S61, 2010 Estimated Average Glucose 214 mg/dL 10/13/2022 8:25 AM EDT [facility] Blood specimen (specimen) Blood specimen / Unknown 10/13/2022 6:38 AM EDT 10/13/2022 7:19 AM EDT us Arlene Drake PA-C LAB BLOOD ORDERABLES Final Res ult Performing Organization Address [facility] Co de Phone Number HOSPITAL LAB See Below [address] [address] from Last 3 Months or Most Recently Relevant to Health Maintenance Insurance MEDICARE PART A & B BLUE CROSS OUT OF [facility] BLUE [employer]OSS OUT OF [facility] MEDICARE PART A & B Advance Directives * Full Code (Latest Code [...] Decision Thoroughly Discussed with: Legally Auth orized Checkerer Hand Name of Legally Authorized Checkerer Hand: Kristine Weeks Healthcare Agents on File Name Relationship Healthcare Agent Relationshi p Communication Micky Shirley Spouse 4. Next of Kin ( Spouse, Adult Child, Parent, Adult Sibling, Grandparent) Care Teams Aircraft Life Support Fitter Relationship Specialty Start Date End Date Pcp, [address] [place] [address] PCP - General 10/11/22
--- OUTSIDE RECORDS SUMMARY | 2025-02-27 06:35 | XMS_ITS | Patient Health Record ---
Author Organization [facility] Address [address] [place] [address] Care Team Providers Care Medical Underwriter Name Role Phone Franky Martino MD Primary Care Provider Tyree Peguero Unavailable [phone] Reason For Referral No Information Medications Medication [...] Status Risk Notes Problem Colon cancer screening (847615536) Colon cancer screening (V76.51) Active confirmed Problem Long-term use of aspirin therapy (V58.66) Active confirmed Plan Of Treatment Future Test Test Name Order Date COLONOSCOPY 02/16/2015 Insurance Providers Payer Name Payer Address Payer Phone Subscriber Number Group Number Insured Name Patient Relationship to Insured Coverage Start Date Coverage End Date MEDICARE OF [place] [address] [place] [address] [id number] ELOISA SHIRLEY Self - patient is the insured [employer] CLAIMS [address] [place] [phone] [id number] ELOISA SHIRLEY Self - patient is the insured Medical (General) History Medical History History ICD Code Hypertension Denies NC,DM,CVA,Lung disease,renal dise ase Hyperlipidemia Early-onset dementia--sees Dr. Lehman in Neurology at [facility] Surgical History Surgery Date(Month/Year) tubal ligation 1983 cholecystectomy
--- OUTSIDE RECORDS SUMMARY | 2025-02-27 06:35 | XMS_ITS ---
Author Name [facility] Organization Unknown History of Medication Use Medication Directions Dispensed Refills Start Date End Date Stat us Blood Glucose Monitoring Suppl (Accu-Chek Guide) w/Device Kit 1 kit by Does not apply route 3 (three) times a day. 10/30/2022 active multivitamin with minerals Tab tablet Take 1 tablet by mouth daily. Do not start before October 27, 2022. 10/27/2022 active acetaminophen (TYLENOL) 325 MG tablet Take 3 tablets (975 mg total) by mouth every 8 (eight) hours around the clock. 10/26/2022 active Alcohol Swabs 70 % Pads Use as directed. 10/26/2022 active donepezil (ARICEPT) 5 MG tablet Take 1 tablet (5 mg total) by mouth nightly. 10/26/2022 active metFORMIN (FORTAMET) 1000 MG (OSM) 24 hr tablet Take 1 tablet (1,000 mg total) by mouth 2 (two) times a day with meals. Swallow whole. Do not crush, break or chew. 10/26/2022 active QUEtiapine (SEROquel) 25 MG tablet Take 0.5 tablets (12.5 mg total) by mouth 2 (two) times a day as needed (use if restless). 10/26/2022 active QUEtiapine (SEROquel) 50 MG tablet Take 1 tablet (50 mg total) by mouth nightly. 10/26/2022 active senna-docusate (SENNA-S) 8.6-50 MG Take 2 tablets by mouth nightly. 10/26/2022 active simvastatin (ZOCOR) 20 MG tablet Take 1 tablet (20 mg total) by mouth daily. 08/26/2022 active Problems Problem Status Onset Date Problem Type Date of Resolution Source Closed bimalleolar fracture of left ankle with routine healing, subsequent encounter active EncounterDiagnosisAct [facility] Type 2 diabetes mellitus without complication, without long-term current use of insulin active 2022-10-20 ProblemAct [facility] Acute encephalopathy active 2022-10-20 ProblemAct [facility] KATE (acute kidney injury) active 2022-10-09 ProblemAct [facility] Dementia active 2022-10-09 ProblemAct [facility] HTN (hypertension) active 2022-10-09 ProblemAct [facility] Trimalleolar fracture of left ankle active 2022-10-09 ProblemAct [facility] Closed bimalleolar fracture of left ankle active 2022-10-11 ProblemAct CCT Encounters Encounter Type Encounter Reason Primary Diagnosis Location Date Ambulatory Pain, unspecified [facility] 01/12/2023 Ambulatory Displaced bimall eolar fracture of left lower leg, subsequent encounter for closed fracture with routine healing [facility] 01/12/2023 Inpatient Type 2 diabetes mellitus without complications [facility] 10/11/2022 Inpatient Displaced trimalleolar fracture of left lower leg, initial encounter for closed fracture Displaced trimalleolar fracture of left lower leg, initial encounter for closed fracture [facility] 10/08/2022 Care Team Organization Name Specialty Phone Email Start Date End Da te [facility] PCP,No Primary Care 01/12/2023 [facility] 10/12/2022 [facility] NO PCP Primary Care 10/11/2022 10/12/2022 [facility]
[2025-02-27 08:10] LABS: Alanine Aminotransferase 27 U/L (0-31); Albumin Level 3.8 g/dL (3.5-5.0); Alkaline Phosphatase 49 U/L (39-117); Anion Gap 13 (12-20); Aspartate Amino Transferase 23 U/L (5-31); Blood Urea Nitrogen 40 mg/dL (9-16); Calcium 9.0 mg/dL (8.4-10.2); Carbon Dioxide 21 mmol/L (22-29); Chloride 116 mmol/L (96-108); Cholesterol 118 mg/dL (<200); Estimated Glomerular Filt Rate 42; HDL Cholesterol 48 mg/dL (>40); Potassium 4.3 mmol/L (3.3-5.1); Sodium 146 mmol/L (135-145); Total Protein 6.2 g/dL (6.5-8.0); Triglycerides 74 mg/dL (<150)
[2025-02-27 08:36] LABS: Microalbum/Creatinine Ratio Ur 103.1 ug/mg cr (<30)
== END 2025-02-27 06:33 | disposition home or self-care (01) ==
LOC: HO.LAB 06:32
PROVIDERS: PCP Internal Medicine; Visit Provider Internal Medicine
DX: E78.5 Hyperlipidemia, unspecified (principal); R80.9 Proteinuria, unspecified; E11.9 Type 2 diabetes mellitus without complications; I10 Essential (primary) hypertension
CPT/HCPCS: 36415; 80053; 80061; 82043; 82570

== ENCOUNTER 2025-03-09 16:22 | Outpatient (AMB) | payer MEDICARE, MEDICAID, SELFPAY ==
[2025-03-09 16:24] VITALS: BP 104/76; PULSE 59; RESP 18; TEMP 36.1; O2SAT 95; BMI 23.7
--- NOTE | 2025-03-09 16:24 | A.OFFPC_ITS ---
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 Required: No Accompanied by: Self / Same As Patient Allergies No Known Allergies (No Known Allergies*) Allergy (Verified 03/09/25 16:40) Medication List - Last Reconciled 03/09/25 by Mari Moss MD acetaminophen 975 mg PO Q8H PRN blood sugar diagnostic (FanLibuch Verio test strips) As directed cholecalciferol (vitamin D3) 50 mcg PO DAILY citalopram 40 mg PO DAILY donepezil 5 mg PO BEDTIME losartan 50 mg PO DAILY memantine 10 mg PO BID metformin 1,000 mg (2 x 500 mg) PO BID ekwmcodu-zwdp-VL-calcium-mins 9 mg iron-400 mcg (Therapeutic-M) 1 tab PO DAILY sennosides-docusate sodium 8.6-50 mg (Senexon-S) 2 tabs PO BEDTIME simvastatin 20 mg PO BEDTIME sitagliptin phosphate (Januvia) 25 mg PO DAILY trazodone 25 mg (1/2 x 50 mg) PO BEDTIME PRN Tobacco use date assessed: 03/09/25 Fall risk assessment: No Falls in past year Last assessed Fall Risk: 03/09/25 Dental Screening Dental Screen Date: 03/09/25 Did you have a dental visit in the last 12 months?: No Did you have a dental problem in the last 6 months where you did not have access to dental care?: No Was dental information given to patient?: Patient has dentist HPI HPI Comments History of Present Illness Details This is a 74-year-old female with dementia, diabetes mellitus type 2, hypertension, hyperlipidemia, chronic kidney disease stage 3 and microalbuminuria that comes accompanied by which is the main second floor operator and main historian for follow-up on her conditions. Her dementia has not significantly changed and she is on donepezil. Her A1c is 5.8% today. Blood pressure within goal being less than 130/80. LDL within goal being less than 70. Her GFR is 42 which has not significantly changed but she has elevated microalbumin and will be referred to nephrology. No chest pain or shortness on breath. COUNT INCLUDES THE [facility] Medical History (Updated 03/09/25 @ 16:55 by Mari Moss MD) Hyperlipidemia associated with type 2 diabetes mellitus Post-menopausal Eye exam, routine Screening for breast cancer Screening for colon cancer Screening for diabetes mellitus Hyperlipidemia Hypertension Surgical History History of ankle surgery History of colonoscopy History of partial hysterectomy History of cholecystectomy History of tonsillectomy Family History Father Alcohol abuse Mother Liver problem Family/Other Alcoholism Social History Household Members: Spouse Housing: House Do you presently have visiting nurse or other home services: No Alcohol intake: never Comment: 1:1 sitter Patient Tobacco Use Status: Never used Tobacco e-Cigarette/Vaping Use: Never Used Second Hand Smoke Exposure: No service: No Current occupational status: retired Cognitive needs: Yes Hearing needs: No Vision needs: Yes Questionnaire Thrive Questionnaire Date Thrive assessed: 10/29/24 I am a: Patient What is your living situation today?: I have a steady place to live Within the past 12 months, did the food you bought not last and you didn't have the money to get more?: Never true Within the past 12 months, did you worry whether your food would run out before you got money to buy more?: Never true Do you have trouble paying for medicines?: No Do you have trouble getting transportation to medical appointments?: No Do you have trouble paying your heating and electricity bill?: No Do you have trouble taking care of your child, family member or friend?: No Do you have trouble with day-to-day activities such as bathing, preparing meals, shopping, managing finances, etc.?: Yes Are you currently unemployed and looking for a job?: No Are you interested in more education?: No Currently or been in a relationship where the following occur: No concerns reported THRIVE Score: 0 RAJWINDER-7 AMB Questionnaire RAJWINDER-7 Date RAJWINDER - 7 assessed: 07/14/24 Source: Developed by Dennise Stark Aman, Remigio Lau and colleagues, with an educational sri from [employer]. Review of Systems Const All systems reviewed & are unremarkable except as noted in HPI and below Card Denies chest pain at rest, Denies chest pain with activity, Denies edema, Denies irregular heart rhythm, Denies claudication, Denies dyspnea, Denies dyspnea on exertion, Denies orthopnea, Denies paroxysmal nocturnal dyspnea and Denies slow heart rate Resp Denies cough, Denies dyspnea and Denies dyspnea on exertion GI Denies abdominal pain, Denies change in bowel habits, Denies excessive flatus, Denies nausea and Denies vomiting Physical exam (Primary Care) Vital Signs: Last Vital Signs Temp 96.9 F 03/09/25 16:24 Pulse 59 03/09/25 16:24 Resp 18 03/09/25 16:24 BP 104/76 03/09/25 16:24 Pulse Ox 95 03/09/25 16:24 Oxygen Delivery Method Room Air 03/09/25 16:24 BMI result Body Mass Index 23.7 Tobacco/Smoking Status: Tobacco use Status Tobacco use date assessed 03/09/25 03/09/25 16:25 Patient Tobacco Use Status Never used Tobacco 03/09/25 16:25 Tobacco use type 11/05/24 17:01 e-Cigarette/Vaping Use Never Used 03/09/25 16:25 Thrive Assessment: Date of Thrive Assessment Date Thrive assessed 10/29/24 03/09/25 16:25 Currently or been in a relationship where the following occur: No concerns reported Resp Effort & Inspection: normal respiratory effort Auscultation: clear to auscultation bilaterally Cardio Jugular venous distension: no JVD Rate: regular rate Rhythm: regular rhythm Heart sounds: S1 normal heart sound present and S2 normal heart sound present Extrem General: Yes full ROM Results AMB Hemoglobin A1c AMB Hemoglobin A1c 5.8 % Last Edit by Tiffanie Soto MA on 03/09/25 17:08 Results Reviewed Results Reviewed: Laboratory Last Values Hgb A1c (Clinic) 5.8 % (4.0-6.0) 03/09/25 16:40 Coding Level of Care Code Est Pt Level 4 (87777) Complex EM visit Add On G2211 Diagnoses Diabetes mellitus with coincident hypertension E11.9; I10 Hypertension, unspecified type I10 Hypertension type: unspecified Hyperlipidemia, unspecified hyperlipidemia type E78.5 Hyperlipidemia type: unspecified CKD (chronic kidney disease) stage 3, GFR 30-59 ml/min N18.30 Microalbuminuria R80.9 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; F02.C18 Dementia type: other frontotemporal dementia Dementia severity: severe Dementia behavioral or psychological symptom: with other behavioral disturbance Time Spent (min) 24 Assessment & Plan Assessment & Plan (1) Diabetes mellitus with coincident hypertension: Code(s): E11.9 - Type 2 diabetes mellitus without complications; I10 - Essential (primary) hypertension Category: Medical (2) Hypertension: Code(s): I10 - Essential (primary) hypertension Category: Medical Qualifiers: Hypertension type: unspecified Qualified Code(s): I10 - Essential (primary) hypertension (3) Hyperlipidemia: Code(s): E78.5 - Hyperlipidemia, unspecified Category: Medical Qualifiers: Hyperlipidemia type: unspecified Qualified Code(s): E78.5 - Hyperlipidemia, unspecified (4) CKD (chronic kidney disease) stage 3, GFR 30-59 ml/min: Code(s): N18.30 - Chronic kidney disease, stage 3 unspecified Category: Medical (5) Microalbuminuria: Code(s): R80.9 - Proteinuria, unspecified Category: Medical (6) Dementia: Code(s): F03.90 - Unspecified dementia, unspecified severity, without behavioral disturbance, psychotic disturbance, mood disturbance, and anxiety Category: Medical Qualifiers: Dementia type: other frontotemporal dementia Dementia severity: severe Dementia behavioral or psychological symptom: with other behavioral disturbance Qualified Code(s): G31.09 - Other frontotemporal neurocognitive disorder; F02.C18 - Dementia in other diseases classified elsewhere, severe, with other behavioral disturbance Plan Continue current meds. Repeat labs in 4 months. Referred to nephrology. Orders: Orders Lipid Panel 4 Months E78.5 - Hyperlipidemia, unspecified AMB Hemoglobin A1c Today Z13.9 - Encounter for screening, unspecified Microalbumin, Random (w Creat) 4 Months R80.9 - Proteinuria, unspecified Comprehensive [place]. Panel Fast 4 Months N18.30 - Chronic kidney disease, stage 3 unspecified Referrals Nephrology Referral N18.30 - Chronic kidney disease, stage 3 unspecified, R80.9 - Proteinuria, unspecified
--- OUTSIDE RECORDS SUMMARY | 2025-03-09 21:26 | XMS_ITS | Clinical Summary ---
Author Organization [facility] Address [address] [place] [address] Care Team Providers Care Manager Neonatal Name Role Phone Pcp, No Primary Care [...] Pad(s) 10/27/19 23 Active OneTouch Verio stripIndications:Ac chinik encephalopathy Test blood glucose 3 times Daily [...] (10/17/2022): Added automatically from request for surgery [id number] Trimalleolar fracture of left ankle 10/09/2022 Dementia [...] 10/26/2023 10/25/2022, 10/21/2022, 10/19/2022, Additional history exists Medical Nutrition Therapy (MNT) 06/25/2024 Influenza Vaccine 01/23/2025 06/17/2017 COVID-19 Vaccine ( season) 2025 Hepatitis B Vaccines Aged Out No long er eligible based on patient's age to complete this topic Medical Devices Implanted Type Area Non Destructive Evaluation Manager Device Identifier Shelf Expiration Date Model / Serial / Lot .112.143 Plate Fib Left Dist Lateral 112mm 6 Hole Contour Ss Bone Lcp - [id number] Implanted:Qty: 1 on 10/17/2022 by Clint Willard MD at [facility] Plate Left: Ankle DEPUY SYNTHES - A SHANELL AND 112.143 / .212 Screw Bone T8 12mm Ss 2.7mm 2.1mm Slftp Lock Strdr Thrd Head - [id number] Implanted:Qty: 1 on 10/17/2022 by Clint Willard MD at [facility] Screw Left: Ankle DEPUY SYNTHES - A SHANELL AND 202.212 / .103 Screw Bone T15 Flthrd 14mm Ss 3.5mm 2.9mm Slftp Lock Strdr - [id number] Implanted:Qty: 1 on 10/17/2022 by Clint Willard MD at [facility] Screw Left: Ankle DEPUY SYNTHES - A SHANELL AND 212.103 / / .240 Screw Bone 2.5mm Flthrd Rvrs Cut Flut 40mm Ss 3.5mm 5mm 1.35 - [id number] Implanted:Qty: 1 on 10/17/2022 by Clint Willard MD at [facility] Screw Left: Ankle DEPUY SYNTHES - A SHANELL AND 205.240 / / .240 Screw Bone 2.5mm Flthrd Rvrs Cut Flut 40mm Ss 3.5mm 5mm 1.35 - [id number] Implanted:Qty: 1 on 10/17/2022 by Clint Willard MD at [facility] Screw Left: Ankle DEPUY SYNTHES - A SHANELL AND 205.240 / / 202.824 Screw Bone Toribio 2.5mm Flthrd 24mm Ss 2.7mm Slftp Nonst Sm - [id number] Implanted:Qty: 1 on 10/17/2022 by Clint Willard MD at [facility] Screw Left: Ankle DEPUY SYNTHES - A SHANELL AND 202.824 / / 202.214 Screw Bone T8 14mm Ss 2.7mm 2.1mm Slftp Lock Strdr Thrd Head - [id number] Implanted:Qty: 1 on 10/17/2022 by Clint Willard MD at [facility] Screw Left: Ankle DEPUY SYNTHES - A SHANELL AND 202.214 / / 202.214 Screw Bone T8 14mm Ss 2.7mm 2.1mm Slftp Lock Strdr Thrd Head - [id number] Implanted:Qty: 1 on 10/17/2022 by Clint Willard MD at [facility] Screw Left: Ankle DEPUY SYNTHES - A SHANELL AND 202.214 / / 202.214 Screw Bone T8 14mm Ss 2.7mm 2.1mm Slftp Lock Strdr Thrd Head - [id number] Implanted:Qty: 1 on 10/17/2022 by Clint Willard MD at [facility] Screw Left: Ankle DEPUY SYNTHES - A SHANELL AND 202.214 / / 202.216 Screw Bone T8 16mm Ss 2.7mm 2.1mm Slftp Lock Strdr Thrd Head - [id number] Implanted:Qty: 1 on 10/17/2022 by Clint Willard MD at [facility] Screw Left: Ankle DEPUY SYNTHES - A SHANELL AND 202.216 / / 204.814 Screw Bone Toribio 2.5mm Flthrd 14mm Ss 3.5mm Slftp Lp Sm Hex - [id number] Implanted:Qty: 1 on 10/17/2022 by Clint Willard MD at [facility] Screw Left: Ankle DEPUY SYNTHES - A SHANELL AND 204.814 / / 204.814 Screw Bone Toribio 2.5mm Flthrd 14mm Ss 3.5mm Slftp Lp Sm Hex - [id number] Implanted:Qty: 1 on 10/17/2022 by Clint Willard MD at [facility] Screw Left: Ankle DEPUY SYNTHES - A SHANELL AND 204.814 / / 204.818 Screw Bone Toribio 18mm Ss 3.5mm 6mm Slftp Lp Sm Hex Nonst - [id number] Implanted:Qty: 1 on 10/17/2022 by Clint Willard MD at [facility] Screw Left: Ankle DEPUY SYNTHES - [...] 65 - 99 mg/dL 10/25/2022 11:49 AM [facility] Comment:Fasting: <100 mg/dL, Non-Fasting: <200 mg/dL (ADA 2005) Blood Urea Nitrogen (BUN) 17 8 - 21 mg/dL 10/25/2022 11:49 AM [facility] Creatinine 0.9 0.4 - 1.1 mg/dL 10/25/2022 11:49 AM [facility] eGFR 68 >59 10/25/2022 11:49 AM [facility] Comment:CKD-EPI (2020) in mL /min/1.73 sq meters. Sodium 139 136 - 145 mmol/L 10/25/2022 11:49 AM [facility] Potassium 4.3 3.4 - 5.3 mmol/L 10/25/2022 11:49 AM [facility] Chloride 105 98 - 107 mmol/L 10/25/2022 11:49 AM [facility] CO2 26 22 - 33 mmol/L 10/25/2022 11:49 AM [facility] Anion Gap 8 7 - 17 10/25/2022 11:49 AM [facility] Calcium 8.7 8.7 - 10.5 mg/dL 10/25/2022 11:49 AM [facility] BUN/Creatinine Ratio 19 10.0 - 25.0 Ratio 10/25/2022 11:49 AM EDT [facility] Blood specimen (specimen) (Plasma/Serum) 10/25/2022 11:06 AM EDT 10/25/2022 11:29 AM EDT us Grace Quick MD LAB BLOOD ORDERABLES Final Resu lt Performing Organization Address [facility] Co de Phone Number HOSPITAL LAB See Below [address] [address] * (ABNORMAL) Hemoglobin A1c with Estimated Average Glucose (Early AM) (10/13/2022 6:38 AM EDT) Hemoglobin A1C 9.1(H) <5.7 % 10/13/2022 8:25 AM EDT [facility] Comment: A1c% Interpretation 5.7 - 6.0 Increase risk of diabetes 6.1 - 6.4 Higher risk of diabetes > or = 6.5 Consistent with diabetes Diabetes Care, 33(Supp 1):S1-S61, 2010 Estimated Average Glucose 214 mg/dL 10/13/2022 8:25 AM EDT [facility] Blood specimen (specimen) Blood specimen / Unknown 10/13/2022 6:38 AM EDT 10/13/2022 7:19 AM EDT us Arlene Drake PA-C LAB BLOOD ORDERABLES Final Res ult Performing Organization Address [facility] Co de Phone Number HOSPITAL LAB See Below [address] [address] from Last 3 Months or Most Recently Relevant to Health Maintenance Insurance MEDICARE PART A & B BLUE CROSS OUT OF [facility] BLUE CROSS OUT OF [facility] MEDICARE PART A & B Advance Directives [...] Decision Thoroughly Discussed with: Legally Auth orized Automobile Service Station Manager Name of Legally Authorized Automobile Service Station Manager: Kristine Weeks Healthcare Agents on File Name Relationship Healthcare Agent Relationshi p Communication Micky Shirley Spouse 4. Next of Kin ( Spouse, Adult Child, Parent, Adult Sibling, Grandparent) Care Teams Manager Neonatal Relationship Specialty Start Date End Date Pcp, No [address] [place] [address] PCP - General 10/11/22
--- OUTSIDE RECORDS SUMMARY | 2025-03-09 21:27 | XMS_ITS | Patient Health Record ---
Author Organization [facility] Address [address] [address] Support Name Relationship Address Phone ELOISA SHIRLEY Guarantor Unknown [phone] Reason For Referral No Information Medications Medication SIG (Take, Route, Frequency, Duration) Notes Start Date End Date Status Vitamin D3 1000 IU ORAL daily; Duration: -3 [facility] Active Simvastatin 20MG 1 ORAL daily; Durati on: -3 [facility] 01/15/2012 Active Lisinopril 10MG 1 ORAL daily; Durati on: -3 [facility] 07/12/2011 Active Citalopram Hydrobromide 10MG 1 ORAL daily; Duration: -3 [facility] 11/29/2011 Active Aspirin EC 81MG 1 ORAL daily; Durati on: -3 [facility] 04/04/2011 Active Aricept 10MG 1 ORAL at bedtime; Duration: -3 [facility] 09/14/2011 Active PriLOSEC OTC 20MG 1 ORAL daily; Durati on: -3 [facility] 04/04/2011 Active Namenda 5MG 1 ORAL twice daily; Duration: -3 [facility] 11/29/2011 Active Problems Problem Type SNOMED Code ICD Code Onset Dates Problem Status W/U Status Risk Notes Problem Type II diabetes mellitus without complication (462915993) Diabetes mellitus without mention of complication, type II or unspecified type, not stated as uncontrolled (250.00) Active confirmed Major Problem Hyperlipidemia (51916370) Other and unspecified hyperlipidemia (272.4) Active confirmed Major Problem Depressive disorder (33792289) Depressive disorder, not elsewhere classified (311) Active confirmed Major Problem Mitral valve disorder (00472186) Mitral valve disorders (424.0) Active confirmed Major Problem Heart disease (18440379) Unspecified heart disease (429.9) Active confirmed Diag Problem Irritable bowel syndrome (45994902) Irritable bowel syndrome (564.1) Active confirmed Major Problem Dizziness and giddiness (907205924) Dizziness and giddiness (780.4) Active confirmed Diag Problem Headache (20701194) Headache (784.0) Active confirmed Diag Problem Cough (43712479) Cough (786.2) Active confirmed Diag Problem Allergy (435367214) Allergy, unspecified not elsewhere classified (995.3) Active confirmed Diag Plan Of Treatment No Information Insurance Providers Payer Name Payer Address Payer Phone Subscriber Number Group Number Insured Name Patient Relationship to Insured Coverage Start Date Coverage End Date [employer] [place] [address] [place] [address] [phone] [id number] ELOISA SHIRLEY Self - patient is the insured
--- OUTSIDE RECORDS SUMMARY | 2025-03-09 21:27 | XMS_ITS | Patient Health Record ---
Author Organization [facility] Address [address] [place] [address] Care Team Providers Care Client Support Professional Name Role Phone Franky Martino MD Primary Care Provider Tyree Peguero Unavailable [phone] Reason For Referral No Information Medications Medication [...] Status Risk Notes Problem Colon cancer screening (450689872) Colon cancer screening (V76.51) Active confirmed Problem Long-term use of aspirin therapy (V58.66) Active confirmed Plan Of Treatment Future Test Test Name Order Date COLONOSCOPY 02/16/2015 Insurance Providers Payer Name Payer Address Payer Phone Subscriber Number Group Number Insured Name Patient Relationship to Insured Coverage Start Date Coverage End Date MEDICARE OF [place] [address] [place] [address] [id number] ELOISA SHIRLEY Self - patient is the insured [employer] ATT[employer] CLAIMS [address] [place] [address] [id number] ELOISA SHIRLEY Self - patient is the insured Medical (General) History Medical History History ICD Code Hypertension Denies MS,DM,CVA,Lung disease,renal dise ase Hyperlipidemia Early-onset dementia--sees Dr. Lehman in Neurology at [facility] Surgical History Surgery Date(Month/Year) tubal ligation 1983 cholecystectomy
== END 2025-03-09 17:01 | disposition home or self-care (01) ==
LOC: HO.HMCH 16:22
PROVIDERS: PCP Internal Medicine; Visit Provider Internal Medicine
DX: E11.9 Type 2 diabetes mellitus without complications (principal); I12.9 Hypertensive chronic kidney disease with stage 1 through stage 4 chronic kidney disease, or unspecified chronic kidney disease; N18.30 Chronic kidney disease, stage 3 unspecified; G31.09 Other frontotemporal neurocognitive disorder; F02.C18 Dementia in other diseases classified elsewhere, severe, with other behavioral disturbance; E78.5 Hyperlipidemia, unspecified; R80.9 Proteinuria, unspecified

== ENCOUNTER → 2025-03-09 16:22 | Outpatient (BNVA) | payer MEDICARE, MEDICAID, SELFPAY | PROVIDERS: PCP Internal Medicine; Visit Provider Internal Medicine | DX: E11.22 Type 2 diabetes mellitus with diabetic chronic kidney disease (principal); I10 Essential (primary) hypertension; E78.5 Hyperlipidemia, unspecified; N18.30 Chronic kidney disease, stage 3 unspecified; R80.9 Proteinuria, unspecified; G31.09 Other frontotemporal neurocognitive disorder; F02.C18 Dementia in other diseases classified elsewhere, severe, with other behavioral disturbance | CPT/HCPCS: 83036; 99212 ==

== ENCOUNTER 2025-03-23 14:12 | Outpatient (AMB) | payer MEDICARE, MEDICAID, SELFPAY ==
--- NOTE | 2025-03-23 14:20 | HO.NEPHOV ---
Vital Signs 03/23/25 14:21 Height 5 ft 6 in Weight 145 lb BMI 23.4 BP 90/62 Blood Pressure Location Lt brachial Position Sitting Pulse 61 Pulse Source Pulse Oximeter Pulse Oximetry (%) 97 Oxygen Delivery Method Room Air Intake Visit Reasons: INP: Proteinuria, CKD STG 3 Microsoft Application Developer Required: No Accompanied by: Spouse Allergies No Known Allergies (No Known Allergies*) Allergy (Verified 03/09/25 16:40) Medication List - Last Reconciled 03/23/25 by Jarad Kirk MD acetaminophen 975 mg PO Q8H PRN blood sugar diagnostic ([facility] Ver[facility] test strips) As directed cholecalciferol (vitamin D3) 50 mcg PO DAILY citalopram 40 mg PO DAILY donepezil 5 mg PO BEDTIME losartan 50 mg PO DAILY memantine 10 mg PO BID metformin 500 mg PO DAILY snuzhdvp-gkdt-LC-calcium-mins 9 mg iron-400 mcg (Therapeutic-M) 1 tab PO DAILY sennosides-docusate sodium 8.6-50 mg (Senexon-S) 2 tabs PO BEDTIME PRN simvastatin 20 mg PO BEDTIME sitagliptin phosphate (Januvia) 25 mg PO DAILY trazodone 25 mg (1/2 x 50 mg) PO BEDTIME PRN HPI Comments Details: - The patient is a 75-year-old female presenting with management of kidney function and associated proteinuria. - Proteinuria identified with no prior kidney issues. - Diabetes Mellitus diagnosed five years ago, well-controlled. - Dementia led to weight loss due to decreased appetite. - Hypertension managed with losartan, recent low BP readings noted. - Hypercholesterolemia controlled with medication. [facility] Medical History Hyperlipidemia associated with type 2 diabetes mellitus Post-menopausal Eye exam, routine Screening for breast cancer Screening for colon cancer Screening for diabetes mellitus Hyperlipidemia Hypertension Surgical History History of ankle surgery History of colonoscopy History of partial hysterectomy History of cholecystectomy History of tonsillectomy Family History Father Alcohol abuse Mother Liver problem Family/Other Alcoholism Social History (Reviewed 03/23/25 @ 14:25 by HUY Wang Household Members: Spouse Housing: House Do you presently have visiting nurse or other home services: No Alcohol intake: never Comment: 1:1 sitter Patient Tobacco Use Status: Never used Tobacco e-Cigarette/Vaping Use: Never Used Second Hand Smoke Exposure: No service: No Current occupational status: retired Cognitive needs: Yes Hearing needs: No Vision needs: Yes Physical Exam Vital Signs: Last Vital Signs Pulse 61 03/23/25 14:21 BP 90/62 03/23/25 14:21 Pulse Ox 97 03/23/25 14:21 Oxygen Delivery Method Room Air 03/23/25 14:21 BMI result Body Mass Index 23.4 General: Awake. Comfortable. HENT: Neck supple. Mucosa moist. Pulmonary: Lungs aeration equal. No rales. Cardiology: Heart S1-S2 heard. No gallop. Abdomen: Soft. Non tender. Bowel sounds normal. Neurologic: No involuntary movements. No myoclonus. Extremities: No edema. No rash. Blood pressure recorded at 90/50, which is low. Results Reviewed Nephrology Results: Hgb, (12.0-16.0) 12.5 g/dl 08/18/24 WBC, (4.8-10.8) 5.8 X10*3/uL 08/18/24 Plt Count, (160-400) 279 X10*3/uL 08/18/24 Sodium, (135-145) 146 mmol/L H 02/27/25 Potassium, (3.3-5.1) 4.3 mmol/L 02/27/25 Chloride, (96-108) 116 mmol/L H 02/27/25 Carbon Dioxide, (22-29) 21 mmol/L L 02/27/25 BUN, (9-16) 40 mg/dL H 02/27/25 Creatinine, (0.5-1.4) 1.26 mg/dL 02/27/25 Calcium, (8.4-10.2) 9.0 mg/dL 02/27/25 Urine Creatinine 129.95 mg/dL 02/27/25 Assessment & Plan Assessment & Plan (1) CKD (chronic kidney disease) stage 3, GFR 30-59 ml/min: Code(s): N18.30 - Chronic kidney disease, stage 3 unspecified Category: Medical Plan: Age-related nephron loss along with underlying diabetes mellitus. There could be a component of acute kidney injury due to hypoperfusion from volume depletion. Optimize blood pressure and avoid hypotension. Increase p.o. fluid intake. Would decrease losartan from 50 mg down to 25 mg. (2) Microalbuminuria: Code(s): R80.9 - Proteinuria, unspecified Category: Medical Plan: Most likely due to underlying diabetes mellitus. She is already on a ARB and I will continue with the same. Blood pressure seems to be well controlled with a hemoglobin A1c less than 6%. Plan Hypotension. This is most likely due to volume depletion along with the use of ARB. Decreased losartan from 50 mg q.d. down to 25 mg q.p.m. Encouraged to increase p.o. fluid intake Discussed with family She has significant dementia. I have not made active follow-up. Watch urinary protein excretion renal function periodically. If the blood pressures remains low despite increasing fluid intake, I would suggest to discontinue losartan. Orders: Orders Total Protein Urine Random 3 Months Jarad Kirk MD N18.30 - Chronic kidney disease, stage 3 unspecified, R80.9 - Proteinuria, unspecified UA and rflx microscopic 3 Months Jarad Kirk MD N18.30 - Chronic kidney disease, stage 3 unspecified, R80.9 - Proteinuria, unspecified Basic Metabolic Panel 3 Months Jarad Kirk MD N18.30 - Chronic kidney disease, stage 3 unspecified, R80.9 - Proteinuria, unspecified Creatinine Urine 3 Months Jarad Kirk MD N18.30 - Chronic kidney disease, stage 3 unspecified, R80.9 - Proteinuria, unspecified Medications: New losartan 25 mg PO .evening 90 tabs 1RF Jarad Kirk MD Changed From metformin 1,000 mg (2 x 500 mg) PO BID 120 tabs 1RF To metformin 500 mg PO DAILY Franky Martino MD Discontinued losartan Discontinued Reason: Doctor's Order 50 mg PO DAILY 90 tabs 2RF Coding Level of Care Code New Pt Level 4 (86701) Diagnoses CKD (chronic kidney disease) stage 3, GFR 30-59 ml/min N18.30 Microalbuminuria R80.9
[2025-03-23 14:21] VITALS: BP 90/62; PULSE 61; O2SAT 97; BMI 23.4
--- OUTSIDE RECORDS SUMMARY | 2025-03-23 16:02 | XMS_ITS | Clinical Summary ---
Author Organization [facility] Address [address] [place] [address] Care Team Providers Care Sports Trainer Name Role Phone Pcp, No Primary Care [...] Pad(s) 10/27/19 23 Active OneTouch Verio stripIndications:Ac [place] creek encephalopathy Test blood glucose 3 times Daily [...] (10/17/2022): Added automatically from request for surgery [id number] Trimalleolar fracture of left ankle 10/09/2022 Dementia [...] this topic Medical Devices Implanted Type Area Paper Handler Device Identifier Shelf Expiration Date Model / Serial / Lot [id number] Plate Fib Left Dist Lateral 112mm 6 Hole Contour Ss Bone Lcp - [id number] Implanted:Qty: 1 on 10/17/2022 by Clint Willard MD at [facility] Plate Left: Ankle [employer] - A SHANELL AN 02.112.143 / / .212 Screw Bone T8 12mm Ss 2.7mm 2.1mm Slftp Lock Strdr Thrd Head - [id number] Implanted:Qty: 1 on 10/17/2022 by Clint Willard MD at [facility] Screw Left: Ankle [employer] - [employer] AN 202.212 / / 212.103 Screw Bone T15 Flthrd 14mm Ss 3.5mm 2.9mm Slftp Lock Strdr - [id number] Implanted:Qty: 1 on 10/17/2022 by Clint Willard MD at [facility] Screw Left: Ankle [employer] - [employer] AN 212.103 / / 205.240 Screw Bone 2.5mm Flthrd Rvrs Cut Flut 40mm Ss 3.5mm 5mm 1.35 - [id number] Implanted:Qty: 1 on 10/17/2022 by Clint Willard MD at [facility] Screw Left: Ankle [employer] - [employer] AN 205.240 / / 205.240 Screw Bone 2.5mm Flthrd Rvrs Cut Flut 40mm Ss 3.5mm 5mm 1.35 - [id number] Implanted:Qty: 1 on 10/17/2022 by Clint Willard MD at [facility] Screw Left: Ankle [employer] - [employer] AN 205.240 / / 202.824 Screw Bone Toribio 2.5mm Flthrd 24mm Ss 2.7mm Slftp Nonst Sm - [id number] Implanted:Qty: 1 on 10/17/2022 by Clint Willard MD at [facility] Screw Left: Ankle [employer] - [employer] AN 202.824 / / 202.214 Screw Bone T8 14mm Ss 2.7mm 2.1mm Slftp Lock Strdr Thrd Head - [id number] Implanted:Qty: 1 on 10/17/2022 by Clint Willard MD at [facility] Screw Left: Ankle [employer] - [employer] AN 202.214 / / 202.214 Screw Bone T8 14mm Ss 2.7mm 2.1mm Slftp Lock Strdr Thrd Head - [id number] Implanted:Qty: 1 on 10/17/2022 by Clint Willard MD at [facility] Screw Left: Ankle [employer] - [employer]ANE[employer] AN 202.214 / / 202.214 Screw Bone T8 14mm Ss 2.7mm 2.1mm Slftp Lock Strdr Thrd Head - [id number] Implanted:Qty: 1 on 10/17/2022 by Clint Willard MD at [facility] Screw Left: Ankle [employer] - [employer]ANELL AN 202.214 / / 202.216 Screw Bone T8 16mm Ss 2.7mm 2.1mm Slftp Lock Strdr Thrd Head - [id number] Implanted:Qty: 1 on 10/17/2022 by Clint Willard MD at [facility] Screw Left: Ankle [employer] - [employer]ANELL AN 202.216 / / 204.814 Screw Bone Toribio 2.5mm Flthrd 14mm Ss 3.5mm Slftp Lp Sm Hex - [id number] Implanted:Qty: 1 on 10/17/2022 by Clint Willard MD at [facility] Screw Left: Ankle [employer] - [employer] AN 204.814 / / 204.814 Screw Bone Toribio 2.5mm Flthrd 14mm Ss 3.5mm Slftp Lp Sm Hex - [id number] Implanted:Qty: 1 on 10/17/2022 by Clint Willard MD at [facility] Screw Left: Ankle [employer] - [employer] AN 204.814 / / 204.818 Screw Bone Toribio 18mm Ss 3.5mm 6mm Slftp Lp Sm Hex Nonst - [id number] Implanted:Qty: 1 on 10/17/2022 by Clint Willard MD at [facility] Screw Left: Ankle [employer] - [employer]ANELL AN 204.818 / / Procedures Procedure Name Priority Date/Time Associated Diagnosis Comments BASIC METABOLIC PANEL Routine 10/25/2022 11:06 AM EDT HEMOGLOBIN A1C WITH ESTIMATED AVERAGE GLUCOSE Routine 10/13/2022 6:38 AM EDT from Last 3 Months or Most Recently Relevant to Health Maintenance Results * (ABNORMAL) Basic Metabolic Panel (Routine) (10/25/2022 11:06 AM EDT) Glucose 168(H) 65 - 99 mg/dL 10/25/2022 11:49 AM [facility] Comment:Fasting: <100 mg/dL, Non-Fasting: <200 mg/dL (ADA 2005) Blood Urea Nitrogen (BUN) 17 8 - 21 mg/dL 10/25/2022 11:49 AM [facility] Creatinine 0.9 0.4 - 1.1 mg/dL 10/25/2022 11:49 AM [facility] eGFR 68 >59 10/25/2022 11:49 AM [facility] Comment:CKD-EPI (2020) in mL /min/1.73 sq meters. Sodium 139 136 - 145 mmol/L 10/25/2022 11:49 AM [facility] Potassium 4.3 3.4 - 5.3 mmol/L 10/25/2022 11:49 AM [facility] Chloride 105 98 - 107 mmol/L 10/25/2022 11:49 AM [facility] CO2 26 22 - 33 mmol/L 10/25/2022 11:49 AM [facility] Anion Gap 8 7 - 17 10/25/2022 11:49 AM [facility] Calcium 8.7 8.7 - 10.5 mg/dL 10/25/2022 11:49 AM EDT [facility] BUN/Creatinine Ratio 19 10.0 - 25.0 Ratio 10/25/2022 11:49 AM EDT [facility] Blood specimen (specimen) (Plasma/Serum) 10/25/2022 11:06 AM EDT 10/25/2022 11:29 AM EDT us Grace Quick MD LAB BLOOD ORDERABLES Final Resu [place] [address] * (ABNORMAL) Hemoglobin A1c with Estimated Average Glucose (Early AM) (10/13/2022 6:38 AM EDT) Hemoglobin A1C 9.1(H) <5.7 % 10/13/2022 8:25 AM EDT [facility] Comment: A1c% Interpretation 5.7 - 6.0 Increase risk of diabetes 6.1 - 6.4 Higher risk of diabetes > or = 6.5 Consistent with diabetes Diabetes Care, 33(Supp 1):S1-S61, 2010 Estimated Average Glucose 214 mg/dL 10/13/2022 8:25 AM EDT [facility] Blood specimen (specimen) Blood specimen / Unknown 10/13/2022 6:38 AM EDT 10/13/2022 7:19 AM EDT us Arlene Drake PA-C LAB BLOOD ORDERABLES Final Res ult HOSPITAL LAB See Below [address] [address] from Last 3 Months or Most Recently Relevant to Health Maintenance Insurance MEDICARE PART A & B [facility] OUT OF [facility] OUT [facility] MEDICARE PART A & B Advance [...] Decision Thoroughly Discussed with: Legally Auth orized Lace Tearing Supervisor Name of Legally Authorized Lace Tearing Supervisor: Kristine Weeks Healthcare Agents on File Name Relationship Healthcare Agent [facility] p Communication Micky Shirley Spouse 4. Next of Kin ( Spouse, Adult Child, Parent, Adult Sibling, Grandparent) Care Teams Sports Trainer Relationship Specialty Start Date End Date Pcp, No [address] [place] [address] PCP - General 10/11/22
--- OUTSIDE RECORDS SUMMARY | 2025-03-23 16:02 | XMS_ITS | Patient Health Record ---
Author Organization [facility] Address [address] [place] [address] Care Team Providers Care Laundry Clerk Name Role Phone Franky Martino MD Primary Care Provider Tyree Peguero Unavailable [phone] Reason For Referral No Information Medications Medication [...] Status Risk Notes Problem Colon cancer screening (886065818) Colon cancer screening (V76.51) Active confirmed Problem Long-term use of aspirin therapy (V58.66) Active confirmed Plan Of Treatment Future Test Test Name Order Date COLONOSCOPY 02/16/2015 Insurance Providers Payer Name Payer Address Payer Phone Subscriber Number Group Number Insured Name Patient Relationship to Insured Coverage Start Date Coverage End Date MEDICARE OF [place] [address] [place] [address] [id number] ELOISA SHIRLEY Self - patient is the insured [employer] CLAIMS [address] [place] [address] [id number] ELOISA SHIRLEY Self - patient is the insured Medical (General) History Medical History History ICD Code Hypertension Denies PA,DM,CVA,Lung disease,renal dise ase Hyperlipidemia Early-onset dementia--sees Dr. Lehman in Neurology at [facility] Surgical History Surgery Date(Month/Year) tubal ligation 1983 cholecystectomy
--- OUTSIDE RECORDS SUMMARY | 2025-03-23 16:02 | XMS_ITS | Patient Health Record ---
Author Organization [facility] Address [address] [address] Support Name Relationship Address Phone ELOISA SHIRLEY Guarantor Unknown [phone] Reason For Referral No Information Medications Medication SIG (Take, Route, Frequency, Duration) Notes Start Date End Date Status Vitamin D3 1000 IU ORAL daily; Duration: -3 [facility] Simvastatin 20MG 1 ORAL daily; [place]ati on: -3 [facility] 01/15/2012 Active Lisinopril 10MG 1 ORAL daily; Durati on: -3 [facility] 07/12/2011 Active Citalopram Hydrobromide 10MG 1 ORAL daily; Duration: -3 [facility] 11/29/2011 Active Aspirin EC 81MG 1 ORAL daily; Durati on: -3 [facility] 04/04/2011 Active Aricept 10MG 1 ORAL at bedtime; Duration: -3 [facility] 09/14/2011 Active PriLOSEC OTC 20MG 1 ORAL daily; Durati on: -3 [facility] 04/04/2011 Active Namenda 5MG 1 ORAL twice daily; Duration: -3 [facility] 11/29/2011 Active Problems Problem Type SNOMED Code ICD Code Onset Dates Problem Status W/U Status Risk Notes Problem Type II diabetes mellitus without complication (933593524) Diabetes mellitus without mention of complication, type II or unspecified type, not stated as uncontrolled (250.00) Active confirmed Major Problem Hyperlipidemia (86210551) Other and unspecified hyperlipidemia (272.4) Active confirmed Major Problem Depressive disorder (47461510) Depressive disorder, not elsewhere classified (311) Active confirmed Major Problem Mitral valve disorder (58561129) Mitral valve disorders (424.0) Active confirmed Major Problem Heart disease (53726295) Unspecified heart disease (429.9) Active confirmed Diag Problem Irritable bowel syndrome (32787786) Irritable bowel syndrome (564.1) Active confirmed Major Problem Dizziness and giddiness (558703953) Dizziness and giddiness (780.4) Active confirmed Diag Problem Headache (22691138) Headache (784.0) Active confirmed Diag Problem Cough (06875378) Cough (786.2) Active confirmed Diag Problem Allergy (550601997) Allergy, unspecified not elsewhere classified (995.3) Active confirmed Diag Plan Of Treatment No Information Insurance Providers Payer Name Payer Address Payer Phone Subscriber Number Group Number Insured Name Patient Relationship to Insured Coverage Start Date Coverage End Date [employer] [place] [address] [place] [address] [id number] ELOISA SHIRLEY Self - patient is the insured
== END 2025-03-23 16:37 | disposition home or self-care (01) ==
LOC: HO.HKA 14:12
PROVIDERS: PCP Internal Medicine; Referring Provider Internal Medicine; Visit Provider Internal Medicine Hypertension Specialist
DX: N18.30 Chronic kidney disease, stage 3 unspecified (principal); R80.9 Proteinuria, unspecified
CPT/HCPCS: 99204

== ENCOUNTER → 2025-03-23 14:12 | Outpatient (BNVA) | payer MEDICARE, MEDICAID, SELFPAY | PROVIDERS: PCP Internal Medicine; Referring Provider Internal Medicine; Visit Provider Internal Medicine Hypertension Specialist | DX: N18.30 Chronic kidney disease, stage 3 unspecified (principal); R80.9 Proteinuria, unspecified; I10 Essential (primary) hypertension | CPT/HCPCS: 99202 ==